=== PATIENT | female | born 1940 | race Caucasian/White ===

== ENCOUNTER 2021-06-03 14:16 | Inpatient (IN) ==
[2021-06-03 17:05] LABS: Basophils # (auto) 0.02 K/uL (0-0.2); Basophils % (auto) 0.2 %; Hemoglobin 14.4 g/dL (12.0-16.0); Immature Granulocytes # (auto) 0.03 K/uL (0.00-0.02); Immature Granulocytes % (auto) 0.3 %; Lymphocytes % (auto) 11.9 %; Mean Corpuscular Hemoglobin 29.1 pg (25-34); Mean Corpuscular Hgb Conc 34.3 g/dL (32-36); Mean Corpuscular Volume 84.8 fL (80-100); Monocytes # (auto) 0.66 K/uL (0.11-0.59); Monocytes % (auto) 5.6 %; Platelet Count 288 K/uL (130-400); RDW Coefficient of Variation 13.3 % (11.5-14.5); Red Blood Count 4.95 M/uL (4.2-5.4); White Blood Count 11.81 K/uL (4.8-10.8)
[2021-06-03 17:20] LABS: INR 1.1 (0.9-1.1); Prothrombin Time 11.5 Seconds (9.0-12.0)
[2021-06-03 17:22] LABS: Albumin Level 3.6 gm/dl (3.4-5.0); BUN Creatinine Ratio 24.8 (10-20); Calcium 9.3 mg/dl (8.5-10.1); Creatinine Clr Calc Pharmacy 28.1 ml/min; Est GFR (African American) 41.7 ml/min; Magnesium 2.4 mg/dl (1.8-2.4); Potassium 2.9 mmol/L (3.5-5.1)
[2021-06-03 17:33] LABS: Bilirubin,Total 0.6 mg/dl (0.2-1); Globulin 3.5 gm/dl (2.5-4.0); Thyroid Stimulating Hormone 2.13 uIu/ml (0.300-4.500); Total Protein 7.1 gm/dl (6.4-8.2); Troponin I 0.032 ng/ml (0-0.045)
[2021-06-03] MEDS ORDERED: SODIUM CHLORIDE 0.9% 1000ML 1,000 ML IV ONE (18:59)
--- NOTE | 2021-06-03 19:03 | Emergency Department Note ---
Impression & Plan Altered mental status, Acute UTI, Acute hypokalemia ED Provider Note NAME: ZOIE PANCHAL AGE: 80 SEX: F : 1940 ARRIVES VIA: Walk-In INFORMANT: Patient ED PROVIDER(S): Yunior Savage DO CHIEF COMPLAINT: AMS HPI: Patient is an 80-year-old female who presents to the ER for confusion. This started the day before when she had a lumpectomy of the right breast. She has been slightly confused and has been waxing and waning. Over the past 24 hours she has been significantly more confused. She denies any headache or change in vision. No chest pain or shortness of breath. No nausea, vomiting, or diarrhea. No dysuria, urgency, or frequency. No other exacerbating remitting factors. ROS: See above HPI for pertinent positives & negatives. A total of 10 systems reviewed and were otherwise negative. � PAST MEDICAL HISTORY:��See Below PAST SURGICAL HISTORY:��See Below� FAMILY HISTORY:��See Below SOCIAL HISTORY:��See Below � HOME MEDICATIONS:��See Below ALLERGIES:��See Below � VITALS:��See Below PHYSICAL EXAMINATION: GENERAL: Sitting up in bed, alert, well appearing, well nourished, no distress, non-toxic EYE EXAM: normal conjunctiva. PERRL and EOM's intact. OROPHARYNX: no exudate, no erythema, lips, buccal mucosa, and tongue normal and mucous membranes are moist NECK: supple, no nuchal rigidity, no adenopathy, non-tender LUNGS: Clear to auscultation. Normal chest wall mechanics HEART: no murmurs, S1 normal and S2 normal ABDOMEN: abdomen soft, non-tender, normo-active bowel sounds, no masses, no rebound or guarding. BACK: Back is symmetrical on inspection and there is no deformity, no midline tenderness, no CVA tenderness. SKIN: no rashes and no bruising UPPER EXTREMITIES: upper extremities are grossly normal. LOWER EXTREMITIES: No pitting edema. NEURO EXAM: Oriented to person place but not month confused as to recent history cranial nerves II-XII intact, normal speech, no weakness of arms, no weakness of legs. No drift. Finger to nose intact. Gross sensation intact. MEDICAL DECISION MAKING: Patient is an 80-year-old female who presents ER with son for confusion. IV was established blood work was obtained. Labs show mild leukocytosis of 11.8 thousand. No anemia. BMP with mild hypokalemia at 2.9. This was repleted orally. LFTs bilirubin was unremarkable. TSH was normal. UA does suggest UTI although was contaminated and difficult to tell with +4 bacteria leuks whites but 20 epithelial cells. Patient was given Rocephin. CT head and chest x-ray were unremarkable. Covid was negative. Patient was discussed with hospitalist admitted for further work-up. Triage Nursing notes reviewed. Limited review of prior medical records performed Vital Signs: reviewed and remarkable for hypertensive and tachycardic Differential diagnosis: Differential diagnoses includes but is not limited to toxic, metabolic, infectious, traumatic, cardiac, neurologic, hematologic, psychiatric and inflammatory etiologies. ER treatment provided: See below Diagnostics interpreted by me: ECG: Sinus tachycardia rate of 98 Left axis No PVCs ST depressions in V3 through V6 as well as the inferior leads with T wave inversion No old to compare to Cardiac Monitoring: An order was placed for continuous cardiac monitoring. The monitor shows a rate of 92 with sinus rhythm. Laboratory studies: As stated above and show below. Imaging studies: CT head was negative Chest x-ray was unremarkable Consultation(s): none Procedures: none Critical Care: None � Past Med/Surg History Social History Smoking Status: Never smoker Preferred Language: Danish Feels Safe at Home: Yes Allergies Allergies Allergy/AdvReac Type Severity Reaction Status Date / Time No Known Allergies Allergy Verified 06/03/21 18:44 Home Meds Home Medications Medication Instructions Recorded Confirmed calcium carbonate 200 mg calcium 200 mg PO DIRECTED PRN 06/03/21 06/03/21 (500 mg) chewable tablet (Tums) metoprolol succinate 25 mg 25 mg PO DAILY 06/03/21 06/03/21 tablet,extended release 24 hr raloxifene 60 mg tablet 60 mg PO DAILY 06/03/21 06/03/21 rosuvastatin 40 mg tablet 40 mg PO DAILY 06/03/21 06/03/21 trazodone 50 mg tablet 50 mg PO HS 06/03/21 06/03/21 Results & Data (ED) Vital Signs Vital Signs - 24 hr 06/03/21 14:24 06/03/21 14:30 06/03/21 18:00 Temperature 36.4 C L Temperature Source Temporal Artery Scan Pulse Rate 111 H 84 Pulse Rate [Left Finger] Pulse Rate from SpO2 Sensor Pulse Rhythm Regular Regular Pulse Rhythm [Left Finger] Pulse Strength Normal Pulse Strength [Left Finger] Respiratory Rate 20 20 Respiratory Effort / Characteristics Non-Labored Spontaneous Respiratory Depth Normal Respiratory Pattern Regular Blood Pressure 158/82 H Blood Pressure [Right Arm] Blood Pressure Mean 107 Blood Pressure Mean [Right Arm] Blood Pressure Position Sitting Blood Pressure Position [Right Arm] Pulse Oximetry 97 97 Oxygen Delivery Method Room Air Room Air Room Air Sepsis Recent Fever Within 48 Hours No Sepsis New/Unexplained Change in Mental Status No Sepsis Action Taken by Nursing No Action Required Pulse Oximetry Post Tiitration 97 06/03/21 18:24 06/03/21 18:30 06/03/21 18:40 Temperature Temperature Source Pulse Rate 81 84 89 Pulse Rate [Left Finger] Pulse Rate from SpO2 Sensor 81 85 89 Pulse Rhythm Pulse Rhythm [Left Finger] Pulse Strength Pulse Strength [Left Finger] Respiratory Rate 18 20 21 Respiratory Effort / Characteristics Respiratory Depth Respiratory Pattern Blood Pressure Blood Pressure [Right Arm] Blood Pressure Mean Blood Pressure Mean [Right Arm] Blood Pressure Position Blood Pressure Position [Right Arm] Pulse Oximetry 96 96 96 Oxygen Delivery Method Sepsis Recent Fever Within 48 Hours Sepsis New/Unexplained Change in Mental Status Sepsis Action Taken by Nursing Pulse Oximetry Post Tiitration 06/03/21 18:50 06/03/21 19:00 06/03/21 19:09 Temperature Temperature Source Pulse Rate 89 90 Pulse Rate [Left Finger] 84 Pulse Rate from SpO2 Sensor 89 91 H Pulse Rhythm Pulse Rhythm [Left Finger] Regular Pulse Strength Pulse Strength [Left Finger] Normal Respiratory Rate 27 H 21 20 Respiratory Effort / Characteristics Non-Labored Respiratory Depth Normal Respiratory Pattern Blood Pressure Blood Pressure [Right Arm] 168/74 H Blood Pressure Mean Blood Pressure Mean [Right Arm] 105 Blood Pressure Position Blood Pressure Position [Right Arm] Lying Pulse Oximetry 96 95 96 Oxygen Delivery Method Room Air Sepsis Recent Fever Within 48 Hours Sepsis New/Unexplained Change in Mental Status Sepsis Action Taken by Nursing Pulse Oximetry Post Tiitration 06/03/21 19:10 06/03/21 19:20 06/03/21 19:30 Temperature Temperature Source Pulse Rate 86 81 89 Pulse Rate [Left Finger] Pulse Rate from SpO2 Sensor 88 84 Pulse Rhythm Pulse Rhythm [Left Finger] Pulse Strength Pulse Strength [Left Finger] Respiratory Rate 21 27 H 21 Respiratory Effort / Characteristics Respiratory Depth Respiratory Pattern Blood Pressure Blood Pressure [Right Arm] Blood Pressure Mean Blood Pressure Mean [Right Arm] Blood Pressure Position Blood Pressure Position [Right Arm] Pulse Oximetry 96 97 Oxygen Delivery Method Sepsis Recent Fever Within 48 Hours Sepsis New/Unexplained Change in Mental Status Sepsis Action Taken by Nursing Pulse Oximetry Post Tiitration 06/03/21 19:40 06/03/21 19:50 06/03/21 20:00 Temperature Temperature Source Pulse Rate 84 87 86 Pulse Rate [Left Finger] Pulse Rate from SpO2 Sensor 84 86 87 Pulse Rhythm Pulse Rhythm [Left Finger] Pulse Strength Pulse Strength [Left Finger] Respiratory Rate 19 18 16 Respiratory Effort / Characteristics Respiratory Depth Respiratory Pattern Blood Pressure Blood Pressure [Right Arm] Blood Pressure Mean Blood Pressure Mean [Right Arm] Blood Pressure Position Blood Pressure Position [Right Arm] Pulse Oximetry 96 97 97 Oxygen Delivery Method Sepsis Recent Fever Within 48 Hours Sepsis New/Unexplained Change in Mental Status Sepsis Action Taken by Nursing Pulse Oximetry Post Tiitration 06/03/21 20:20 06/03/21 20:30 06/03/21 20:40 Temperature Temperature Source Pulse Rate 78 91 H Pulse Rate [Left Finger] Pulse Rate from SpO2 Sensor 82 69 90 Pulse Rhythm Pulse Rhythm [Left Finger] Pulse Strength Pulse Strength [Left Finger] Respiratory Rate 19 21 Respiratory Effort / Characteristics Respiratory Depth Respiratory Pattern Blood Pressure 164/74 H Blood Pressure [Right Arm] Blood Pressure Mean 104 Blood Pressure Mean [Right Arm] Blood Pressure Position Blood Pressure Position [Right Arm] Pulse Oximetry 98 96 98 Oxygen Delivery Method Sepsis Recent Fever Within 48 Hours Sepsis New/Unexplained Change in Mental Status Sepsis Action Taken by Nursing Pulse Oximetry Post Tiitration 06/03/21 20:50 06/03/21 21:00 06/03/21 21:10 Temperature Temperature Source Pulse Rate 80 84 86 Pulse Rate [Left Finger] Pulse Rate from SpO2 Sensor 80 85 87 Pulse Rhythm Pulse Rhythm [Left Finger] Pulse Strength Pulse Strength [Left Finger] Respiratory Rate 17 17 17 Respiratory Effort / Characteristics Respiratory Depth Respiratory Pattern Blood Pressure 166/80 H Blood Pressure [Right Arm] Blood Pressure Mean 108 Blood Pressure Mean [Right Arm] Blood Pressure Position Blood Pressure Position [Right Arm] Pulse Oximetry 97 96 98 Oxygen Delivery Method Sepsis Recent Fever Within 48 Hours Sepsis New/Unexplained Change in Mental Status Sepsis Action Taken by Nursing Pulse Oximetry Post Tiitration 06/03/21 23:00 Temperature Temperature Source Pulse Rate Pulse Rate [Left Finger] 87 Pulse Rate from SpO2 Sensor Pulse Rhythm Pulse Rhythm [Left Finger] Pulse Strength Pulse Strength [Left Finger] Respiratory Rate 20 Respiratory Effort / Characteristics Respiratory Depth Respiratory Pattern Blood Pressure Blood Pressure [Right Arm] 154/77 H Blood Pressure Mean Blood Pressure Mean [Right Arm] 102 Blood Pressure Position Blood Pressure Position [Right Arm] Pulse Oximetry 96 Oxygen Delivery Method Room Air Sepsis Recent Fever Within 48 Hours Sepsis New/Unexplained Change in Mental Status Sepsis Action Taken by Nursing Pulse Oximetry Post Tiitration Laboratory Data Result diagrams: 06/03/21 16:50 06/03/21 16:50 Lab Results 06/03/21 06/03/21 06/03/21 Range/Units 16:50 16:50 16:50 WBC 11.81 H (4.8-10.8) K/uL RBC 4.95 (4.2-5.4) M/uL Hgb 14.4 (12.0-16.0) g/dL Hct 42.0 (37-47) % MCV 84.8 (80-100) fL MCH 29.1 (25-34) pg MCHC 34.3 (32-36) g/dL RDW Std Deviation 41.0 (36.4-46.3) fL RDW Coeff of [place]oz[place] 13.3 (11.5-14.5) % Plt Count 288 (130-400) K/uL MPV 10.0 (7.4-10.4) fL Immature Gran % (Auto) 0.3 % Neut % (Auto) 82.0 % Lymph % (Auto) 11.9 % [place] % (Auto) 5.6 % Eos % (Auto) 0.0 % Baso % (Auto) 0.2 % Neut # (Auto) 9.70 H (1.4-6.5) K/uL Lymph # (Auto) 1.40 (1.2-3.4) K/uL [place]ayer # (Auto) 0.66 H (0.11-0.59) K/uL Eos # (Auto) 0.00 (0-0.5) K/uL Baso # (Auto) 0.02 (0-0.2) K/uL Immature Gran # (Auto) 0.03 H (0.00-0.02) K/uL PT 11.5 (9.0-12.0) Seconds INR 1.1 (0.9-1.1) APTT 26.0 (21.0-31.0) Seconds PTT Ratio 1.0 Sodium 135 L (136-145) mmol/L Potassium 2.9 L (3.5-5.1) mmol/L Chloride 98 (98-107) mmol/L Carbon Dioxide 28 (21-32) mmol/L Anion Gap 9.0 (3-11) BUN 34 H (7-18) mg/dl Creatinine 1.38 H (0.6-1.2) mg/dl Est Cr Clr Drug Dosing 28.1 ml/min Est GFR ( Amer) 41.7 ml/min Est GFR (Non-Af Amer) 36.0 ml/min BUN/Creatinine Ratio 24.8 H (10-20) Glucose 172 H (70-99) mg/dl Calcium 9.3 (8.5-10.1) mg/dl Magnesium 2.4 (1.8-2.4) mg/dl Total Bilirubin 0.6 (0.2-1) mg/dl AST 40 H (15-37) U/L ALT 49 (12-78) Alkaline Phosphatase 69 (45-117) U/L Troponin I 0.032 (0-0.045) ng/ml Total Protein 7.1 (6.4-8.2) gm/dl Albumin 3.6 (3.4-5.0) gm/dl Globulin 3.5 (2.5-4.0) gm/dl Albumin/Globulin Ratio 1.0 (0.9-2) TSH 2.130 (0.300-4.500) uIu/ml Urine Color Urine Appearance (Clear) Urine pH (4.5-7.5) Ur Specific [place] (1.000-1.030) Urine Protein (Negative) Urine Glucose (UA) (Negative) Urine Ketones (Negative) Urine Blood (Negative) Urine Nitrite (Negative) Urine Bilirubin (Negative) Urine Urobilinogen (Negative) Ur Leukocyte Esterase (Negative) Urine WBC (Auto) (0-5) /hpf Urine RBC (Auto) (0-4) /hpf U Hyaline Cast (Auto) (0-5) /lpf U Epithel Cells (Auto) (0-5) /lpf Urine Bacteria (Auto) (Negative) SARS-CoV-2, RNA, NAAT (NEGATIVE) 06/03/21 06/03/21 Range/Units 18:59 19:00 WBC (4.8-10.8) K/uL RBC (4.2-5.4) M/uL Hgb (12.0-16.0) g/dL Hct (37-47) % MCV (80-100) fL MCH (25-34) pg MCHC (32-36) g/dL RDW Std Deviation (36.4-46.3) fL RDW Coeff of [place]oz[place] (11.5-14.5) % Plt Count (130-400) K/uL MPV (7.4-10.4) fL Immature Gran % (Auto) % Neut % (Auto) % Lymph % (Auto) % [place] % (Auto) % Eos % (Auto) % Baso % (Auto) % Neut # (Auto) (1.4-6.5) K/uL Lymph # (Auto) (1.2-3.4) K/uL [place] # (Auto) (0.11-0.59) K/uL Eos # (Auto) (0-0.5) K/uL Baso # (Auto) (0-0.2) K/uL Immature Gran # (Auto) (0.00-0.02) K/uL PT (9.0-12.0) Seconds INR (0.9-1.1) APTT (21.0-31.0) Seconds PTT Ratio Sodium (136-145) mmol/L Potassium (3.5-5.1) mmol/L Chloride (98-107) mmol/L Carbon Dioxide (21-32) mmol/L Anion Gap (3-11) BUN (7-18) mg/dl Creatinine (0.6-1.2) mg/dl Est Cr Clr Drug Dosing ml/min Est GFR ( Amer) ml/min Est GFR (Non-Af Amer) ml/min BUN/Creatinine Ratio (10-20) Glucose (70-99) mg/dl Calcium (8.5-10.1) mg/dl Magnesium (1.8-2.4) mg/dl Total Bilirubin (0.2-1) mg/dl AST (15-37) U/L ALT (12-78) Alkaline Phosphatase (45-117) U/L Troponin I (0-0.045) ng/ml Total Protein (6.4-8.2) gm/dl Albumin (3.4-5.0) gm/dl Globulin (2.5-4.0) gm/dl Albumin/Globulin Ratio (0.9-2) TSH (0.300-4.500) uIu/ml Urine Color Dark Yellow Urine Appearance Cloudy A (Clear) Urine pH 5.0 (4.5-7.5) Ur Specific [place] 1.024 (1.000-1.030) Urine Protein 2+ H (Negative) Urine Glucose (UA) Negative (Negative) Urine Ketones 1+ H (Negative) Urine Blood 2+ H (Negative) Urine Nitrite Negative (Negative) Urine Bilirubin Negative (Negative) Urine Urobilinogen Negative (Negative) Ur Leukocyte Esterase Trace H (Negative) Urine WBC (Auto) >30 H (0-5) /hpf Urine RBC (Auto) 5-10 H (0-4) /hpf U Hyaline Cast (Auto) >30 H (0-5) /lpf U Epithel Cells (Auto) 20-30 H (0-5) /lpf Urine Bacteria (Auto) 4+ H (Negative) SARS-CoV-2, RNA, NAAT NEGATIVE (NEGATIVE) Administered Medications Potassium Chloride 40 meq/ (Sodium Chloride) 1,020 mls @ 60 mls/hr IV .Q17H ONE Stop: 06/04/21 15:59 Last Admin: 06/03/21 23:26 Dose: 60 mls/hr Documented by: [id number] Discontinued Medications Sodium Chloride (Nss 1000ml) 1,000 mls @ 999 mls/hr IV .Q1H1M ONE Stop: 06/03/21 19:59 Last Infusion: 06/03/21 20:27 Dose: 0 mls/hr Documented by: [id number] Admin: 06/03/21 19:17 Dose: 999 mls/hr Documented by: [id number] Ceftriaxone Sodium (Rocephin) 1,000 mg in 50 mls @ 100 mls/hr IV NOW STA Stop: 06/03/21 22:07 Last Infusion: 06/03/21 22:20 Dose: 0 mls/hr Documented by: [id number] Admin: 06/03/21 21:51 Dose: 100 mls/hr Documented by: [id number] Cefepime HCl (Maxipime) 2,000 mg in 20 mls @ 5 mls/min IV NOW STA; Protocol Stop: 06/03/21 22:42 Last Admin: 06/03/21 23:26 Dose: 5 mls/min Documented by: [id number] Potassium Chloride (Potassium Chloride Crtab 20 Meq Tabcr) 40 meq PO NOW STA Stop: 06/03/21 21:39 Last Admin: 06/03/21 21:51 Dose: 40 meq Documented by: [id number] Potassium Chloride (Potassium Chloride Crtab 20 Meq Tabcr) 40 meq PO NOW STA Stop: 06/03/21 22:41 Last Admin: 06/03/21 23:25 Dose: 40 meq Documented by: [id number] Discharge Plan Visit Data Chief Complaint: Altered Mental Status Stated Complaint: CONFUSION, MENTAL HEALTH EVAL ED Provider: Yunior Savage Discharge Problem: Altered mental status, Acute UTI, Acute hypokalemia Forms Stand Alone Forms: [facility] Prescriptions Prescriptions: No Action trazodone 50 mg tablet 50 mg PO HS RF: 0 calcium carbonate [Tums] 200 mg calcium (500 mg) Tablet,Chewable 200 mg PO DIRECTED PRN (Reason: HEARTBURN/INDIGESTION) RF: 0 raloxifene 60 mg tablet 60 mg PO DAILY RF: 0 metoprolol succinate 25 mg tablet extended release 24 hr 25 mg PO DAILY RF: 0 rosuvastatin 40 mg tablet 40 mg PO DAILY RF: 0 Referrals Referrals: Cecile Vega [Primary Care Provider] -
[2021-06-03 20:04] LABS: Appearance Urine Cloudy (Clear); Bacteria Urine Automated 4+ (Negative); Bilirubin Urine Negative (Negative); Blood Urine 2+ (Negative); Color Urine Dark Yellow; Epithelial Cell Urine Auto 20-30 /lpf (0-5); Glucose Urine UA Negative (Negative); Ketones Urine 1+ (Negative); Leukocyte Esterase Urine Trace (Negative); Nitrite Urine Negative (Negative); Protein Urine 2+ (Negative); Specific Gravity Urine 1.024 (1.000-1.030); Urobilinogen Urine Negative (Negative); WBC Urine Automated >30 /hpf (0-5)
[2021-06-03 20:16] LABS: Cast Urine Automated >30 /lpf (0-5)
[2021-06-03] MEDS ORDERED: cefTRIAXone SODIUM 1,000 MG/50 ML BAG IV STA (21:38)
[2021-06-03] MEDS ORDERED: POTASSIUM CHLORIDE CRTAB 20 MEQ TABCR PO STA ×2 (21:38→22:40)
[2021-06-03] MEDS ORDERED: CEFEPIME 2,000 MG/20 ML VIAL IV STA (22:39)
[2021-06-03] MEDS ORDERED: POTASSIUM CHLORIDE 40 MEQ in SODIUM CHLORIDE 0.9% 1000ML 1,000 ML IV ONE (23:00)
--- NOTE | 2021-06-03 23:44 | History & Physical Report ---
Date of Service June 03, 2021 Assessment & Plan (1) Encephalopathy: Plan: Multifactorial : Complicated UTI, possible sepsis ARF secondary to clinical dehydration from poor p.o. intake with note of ketonuria ? Adjustment disorder, recent breast cancer diagnosis Rule out structural intracranial pathology given behavioral changes/speech change hypertension, elevated hyperlipidemia, on statin Rx Hyperglycemia rule out DM Medical telemetry CS, cefepime Monitor creatinine response to IVF Psychiatry consult Re: Behavioral change, possible adjustment disorder Hold trazodone until patient seen by psychiatry MRI brain RE behavioral change Check hemoglobin A1c PT OT eval DVT prophylaxis. Heparin subcu Full code Patient son requesting update from providers. Mr. Marco A Hale, contact numbers [phone]. Text document was generated using [employer] voice recognition software. It may contain grammatical or spelling errors. Kindly contact undersigned for clarification of any documentation item in question. History of Present Illness Chief Complaint: Confusion Primary Care Provider: Cecile Vega History obtained from patient, family, and records. Patient is a fair historian. Medical history significant for hypertension, hyperlipidemia, ductal carcinoma in situ, right breast status post recent surgery, osteoporosis. Patient has not been well since last month. Some stress related to elective right breast surgery at [facility] done before . Appetite not too good. Patient denies headache, chest pain, S OB. Admits to anxiety about breast cancer diagnosis. Not sleeping a lot. Denies depression/suicidality. Family noticed patient to be talking about things not making sense from time to time before procedure. Outpatient Rx for a urinary tract infection. After elective right breast surgery, patient evaluated at [facility] ER about 2 weeks ago for agitation, confusion. Patient with thoughts about being processed by the devil as per son. Patient subsequently discharged from the ER. Symptoms could be from some stress related to breast cancer diagnosis/procedure as per patient PCP as per son during last visit last week. Trazodone prescribed at night to help with sleep. Patient family noted increasing confusion, patient stopping in the middle of her sentences when asked questions. Patient taking down a lot of notes on a paper pad at home which is kind of unusual as per family. Urine also noted to have a strong smell by patient yesterday. No fever, no chills, no abdominal pain. Patient given ceftriaxone at the ER for UTI. 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 Allergies Allergy/AdvReac Type Severity Reaction Status Date / Time No Known Allergies Allergy Verified 06/03/21 18:44 Home Medications Medication Instructions Recorded Confirmed Type calcium carbonate 200 mg calcium 200 mg PO DIRECTED PRN 06/03/21 06/03/21 History (500 mg) chewable tablet (Tums) metoprolol succinate 25 mg 25 mg PO DAILY 06/03/21 06/03/21 History tablet,extended release 24 hr raloxifene 60 mg tablet 60 mg PO DAILY 06/03/21 06/03/21 History rosuvastatin 40 mg tablet 40 mg PO DAILY 06/03/21 06/03/21 History trazodone 50 mg tablet 50 mg PO HS 06/03/21 06/03/21 History Past Med/Surg History Medical History (Updated 06/04/21 @ 15:37 by Tiffany Rivas MD) Acute hypokalemia Acute UTI Altered mental status Social History Smoking Status: Never smoker Hx Alcohol Use: No Hx Substance Use: No Preferred Language: Georgian Communication Ability: Effective Communication Ability Comment: Pt has intermittent confusion Podiatry Doctor Required: No Beliefs That Will Affect Care: None marital status: Current Living Situation: Family Other Information That Helps Us Care for You: No Feels Safe at Home: Yes Safety Concerns: Feels Safe At This Time Assistive Devices: None Review of Systems Review of Systems: As per HPI, all 10 systems reviewed, all other ROS negative Physical Exam Physical Exam: GENERAL: Slightly uncomfortable, slightly anxious, incessant note-taking during encounter, struggles to complete answers to questions, no respiratory distress SKIN: Normal color, warm HEENT: Bespectacled, [place] palpebral conjunctivae, no ptosis, dry buccal mucosa NECK : Supple, no tenderness CHEST : CTA, no tenderness HEART : RRR, no obvious murmurs ABDOMEN: Some distention, nontender EXTREMITIES : No LE swelling/tenderness, no other conspicuous deformities noted NEUROLOGIC : Coherent, no facial asymmetry, slow to respond to some questions/some difficulty finishing sentences, gait and stance not assessed Results & Data Results & Data ([facility]) Vital Signs (Past 12 Hours) Vital Signs Temp Pulse Pulse Resp BP BP Pulse Ox 06/03/21 23:00 87 20 154/77 H 96 06/03/21 21:10 86 17 98 06/03/21 21:00 84 17 166/80 H 96 06/03/21 20:50 80 17 97 06/03/21 20:40 91 H 21 98 06/03/21 20:30 78 19 164/74 H 96 06/03/21 20:20 98 06/03/21 20:00 86 16 97 06/03/21 19:50 87 18 97 06/03/21 19:40 84 19 96 06/03/21 19:30 89 21 06/03/21 19:20 81 27 H 97 06/03/21 19:10 86 21 96 06/03/21 19:09 84 20 168/74 H 96 06/03/21 19:00 90 21 95 06/03/21 18:50 89 27 H 96 06/03/21 18:40 89 21 96 06/03/21 18:30 84 20 96 06/03/21 18:24 81 18 96 06/03/21 14:30 84 20 97 06/03/21 14:24 36.4 C L 111 H 20 158/82 H 97 Laboratory Results Laboratory Results WBC 11.81 K/uL (4.8-10.8) H 06/03/21 16:50 RBC 4.95 M/uL (4.2-5.4) 06/03/21 16:50 Hgb 14.4 g/dL (12.0-16.0) 06/03/21 16:50 Hct 42.0 % (37-47) 06/03/21 16:50 MCV 84.8 fL (80-100) 06/03/21 16:50 MCH 29.1 pg (25-34) 06/03/21 16:50 MCHC 34.3 g/dL (32-36) 06/03/21 16:50 RDW Std Deviation 41.0 fL (36.4-46.3) 06/03/21 16:50 RDW Coeff of [place]oz[place] 13.3 % (11.5-14.5) 06/03/21 16:50 Plt Count 288 K/uL (130-400) 06/03/21 16:50 MPV 10.0 fL (7.4-10.4) 06/03/21 16:50 Immature Gran % (Auto) 0.3 % 06/03/21 16:50 Neut % (Auto) 82.0 % 06/03/21 16:50 Lymph % (Auto) 11.9 % 06/03/21 16:50 Adams % (Auto) 5.6 % 06/03/21 16:50 Eos % (Auto) 0.0 % 06/03/21 16:50 Baso % (Auto) 0.2 % 06/03/21 16:50 Neut # (Auto) 9.70 K/uL (1.4-6.5) H 06/03/21 16:50 Lymph # (Auto) 1.40 K/uL (1.2-3.4) 06/03/21 16:50 Adams # (Auto) 0.66 K/uL (0.11-0.59) H 06/03/21 16:50 Eos # (Auto) 0.00 K/uL (0-0.5) 06/03/21 16:50 Baso # (Auto) 0.02 K/uL (0-0.2) 06/03/21 16:50 Immature Gran # (Auto) 0.03 K/uL (0.00-0.02) H 06/03/21 16:50 PT 11.5 Seconds (9.0-12.0) 06/03/21 16:50 INR 1.1 (0.9-1.1) 06/03/21 16:50 APTT 26.0 Seconds (21.0-31.0) 06/03/21 16:50 PTT Ratio 1.0 06/03/21 16:50 Sodium 135 mmol/L (136-145) L 06/03/21 16:50 Potassium 2.9 mmol/L (3.5-5.1) L 06/03/21 16:50 Chloride 98 mmol/L (98-107) 06/03/21 16:50 Carbon Dioxide 28 mmol/L (21-32) 06/03/21 16:50 Anion Gap 9.0 (3-11) 06/03/21 16:50 BUN 34 mg/dl (7-18) H 06/03/21 16:50 Creatinine 1.38 mg/dl (0.6-1.2) H 06/03/21 16:50 Est Cr Clr Drug Dosing 28.1 ml/min 06/03/21 16:50 Est GFR ( Amer) 41.7 ml/min 06/03/21 16:50 Est GFR (Non-Af Amer) 36.0 ml/min 06/03/21 16:50 BUN/Creatinine Ratio 24.8 (10-20) H 06/03/21 16:50 Glucose 172 mg/dl (70-99) H 06/03/21 16:50 Calcium 9.3 mg/dl (8.5-10.1) 06/03/21 16:50 Magnesium 2.4 mg/dl (1.8-2.4) 06/03/21 16:50 Total Bilirubin 0.6 mg/dl (0.2-1) 06/03/21 16:50 AST 40 U/L (15-37) H 06/03/21 16:50 ALT 49 (12-78) 06/03/21 16:50 Alkaline Phosphatase 69 U/L (45-117) 06/03/21 16:50 Troponin I 0.032 ng/ml (0-0.045) 06/03/21 16:50 Total Protein 7.1 gm/dl (6.4-8.2) 06/03/21 16:50 Albumin 3.6 gm/dl (3.4-5.0) 06/03/21 16:50 Globulin 3.5 gm/dl (2.5-4.0) 06/03/21 16:50 Albumin/Globulin Ratio 1.0 (0.9-2) 06/03/21 16:50 TSH 2.130 uIu/ml (0.300-4.500) 06/03/21 16:50 Urine Color Dark Yellow 06/03/21 19:00 Urine Appearance Cloudy (Clear) A 06/03/21 19:00 Urine pH 5.0 (4.5-7.5) 06/03/21 19:00 Ur Specific [place] 1.024 (1.000-1.030) 06/03/21 19:00 Urine Protein 2+ (Negative) H 06/03/21 19:00 Urine Glucose (UA) Negative (Negative) 06/03/21 19:00 Urine Ketones 1+ (Negative) H 06/03/21 19:00 Urine Blood 2+ (Negative) H 06/03/21 19:00 Urine Nitrite Negative (Negative) 06/03/21 19:00 Urine Bilirubin Negative (Negative) 06/03/21 19:00 Urine Urobilinogen Negative (Negative) 06/03/21 19:00 Ur Leukocyte Esterase Trace (Negative) H 06/03/21 19:00 Urine WBC (Auto) >30 /hpf (0-5) H 06/03/21 19:00 Urine RBC (Auto) 5-10 /hpf (0-4) H 06/03/21 19:00 U Hyaline Cast (Auto) >30 /lpf (0-5) H 06/03/21 19:00 U Epithel Cells (Auto) 20-30 /lpf (0-5) H 06/03/21 19:00 Urine Bacteria (Auto) 4+ (Negative) H 06/03/21 19:00 SARS-CoV-2, RNA, NAAT NEGATIVE (NEGATIVE) 06/03/21 18:[address] head initial read: No acute intracranial finding Chest x-ray as per interpretation: No congestion, no infiltrate EKG as per my interpretation : Rate 100, NSR, LAD, LAFB, T wave abnormalities over inferior leads and anterolateral leads
[2021-06-04] MEDS ORDERED: ACETAMINOPHEN 325 MG TAB PO PRN (00:41)
[2021-06-04] MEDS ORDERED: PROMETHAZINE HCL 6.25 MG in SODIUM CHLORIDE 0.9% 50 ML IV PRN (00:41)
[2021-06-04] MEDS ORDERED: MELATONIN 3 MG TAB PO PRN (02:22)
[2021-06-04] MEDS ORDERED: amLODIPine BESYLATE 5 MG TAB PO ONE (02:23)
[2021-06-04] MEDS ORDERED: GADOBUTROL 65ML VIAL IV ONE (02:44)
[2021-06-04 05:16] LABS: Basophils # (auto) 0.01 K/uL (0-0.2); Basophils % (auto) 0.1 %; Eosinophils # (auto) 0.03 K/uL (0-0.5); Eosinophils % (auto) 0.4 %; Hematocrit (blood only) 40.3 % (37-47); Hemoglobin 13.8 g/dL (12.0-16.0); Immature Granulocytes # (auto) 0.01 K/uL (0.00-0.02); Immature Granulocytes % (auto) 0.1 %; Lymphocytes # (auto) 0.95 K/uL (1.2-3.4); Lymphocytes % (auto) 11.4 %; Mean Corpuscular Hgb Conc 34.2 g/dL (32-36); Mean Corpuscular Volume 84.7 fL (80-100); Mean Platelet Volume 9.5 fL (7.4-10.4); Monocytes # (auto) 0.74 K/uL (0.11-0.59); Monocytes % (auto) 8.9 %; Neutrophils # (auto) 6.56 K/uL (1.4-6.5); Neutrophils % (auto) 79.1 %; Platelet Count 231 K/uL (130-400); RDW Coefficient of Variation 13.3 % (11.5-14.5); RDW Standard Deviation 41.2 fL (36.4-46.3); Red Blood Count 4.76 M/uL (4.2-5.4)
[2021-06-04 05:36] LABS: BUN Creatinine Ratio 25.2 (10-20); Calcium 8.5 mg/dl (8.5-10.1); Est GFR (African American) 71.9 ml/min; Est GFR (Non-African American) 62.1 ml/min; Potassium 3.4 mmol/L (3.5-5.1)
[2021-06-04] MEDS ORDERED: POTASSIUM CHLORIDE CRTAB 20 MEQ TABCR PO STA ×2 (05:40→10:40)
--- NOTE | 2021-06-04 06:50 | CT Scan Report ---
CT head/brain wo con CLINICAL HISTORY: ams COMPARISON STUDY: No previous studies for comparison. CT DOSE: 614.27 mGy.cm TECHNIQUE: Standard CT of the Brain was performed without IV contrast. A dose lowering technique was utilized adhering to the principles of ALARA. FINDINGS: Extraaxial space: There is no evidence for subdural hematoma. There are no extra-axial fluid collecti ons. Ventricles and cisterns: The ventricles are normal in size and configuration. There is no evidence f or midline shift or mass effect. Parenchyma: There is no subarachnoid or intraparenchymal hemorrhage. There is no evidence for an acu te infarct or cerebral edema. There is mild cerebral cortical atrophy and decreased attenuation in th e periventricular white matter representing remote small vessel disease. There are no gross mass lesi ons. Osseous structures: There is no evidence for an acute fracture. The visualized paranasal sinuses are clear. The mastoid air cells are clear bilaterally. Soft tissues: There is no evidence for focal soft tissue swelling. IMPRESSION: No acute intracerebral pathology. Mild cerebral cortical atrophy and remote small vessel disease. ACT 112: Negative or not required by law. Electronically signed by: Fredy Nesbitt M.D. 06/04/2021 6:49 AM
[2021-06-04 07:49] LABS: Estimated Average Glucose 131 mg/dl; Hemoglobin A1C 6.2 % (4.5-5.6)
[2021-06-04] MEDS ORDERED: CEFEPIME 2,000 MG in SYRINGE 0 ML IV SCH (08:00)
--- NOTE | 2021-06-04 08:35 | Magnetic Resonance Report ---
MR brain wo/w con CLINICAL HISTORY: behavioral change. Recent lumpectomy. Altered mental status and anxiety for possi ble metastatic disease. COMPARISON STUDY: CT brain from 06/03/2021 TECHNIQUE: Multiplanar multisequence images of the brain were performed before and after Gadavist, 6 mL of IV contrast. Diffusion weighted imaging and ADC mapping was also performed. FINDINGS: Extra-axial space: There is no evidence for a subdural hematoma, There are no extra-axial fluid shamir ections. Ventricles and cisterns: The ventricles are normal in size and configuration. There is no evidence f or midline shift or mass effect. Parenchyma: On noncontrast images, there is no evidence for an acute hemorrhage or infarct. No acute diffusion abnormalities are noted on diffusion weighted imaging or ADC mapping. There is normal adams -white differentiation. There is mild cerebral cortical atrophy present. There is bright signal seen on FLAIR weighted sequences within the centrum semiovale and periventricular white matter characteris tic of remote small vessel disease. The sulci and gyri appear normal without effacement. The midline structures are unremarkable. The posterior fossa structures appear normal. On postcontrast images, there is no evidence for enhancing mass lesion. Osseous structures: The paranasal sinuses are well aerated. The mastoid air cells are well aerated. Soft tissues: No focal soft tissue abnormalities are identified. IMPRESSION: No acute intracranial abnormalities. Mild cerebral cortical atrophy and remote small ves chanell disease are present. ACT 112: Negative or not required by law. Electronically signed by: Fredy eNsbitt M.D. 06/04/2021 8:33 AM
--- NOTE | 2021-06-04 08:47 | XRay Report ---
XR chest 1V portable CLINICAL HISTORY: ams TECHNIQUE: Single frontal radiograph of the chest was obtained. Comparison: None available at the time of this dictation. FINDINGS: No lines and tubes are seen. The cardiomediastinal silhouette is normal. The lungs are clear. No evid ence of pleural effusion or pneumothorax. IMPRESSION: No acute chest disease. ACT 112: Negative or not required by law. Electronically signed by: Armando Devi M.D. 06/04/2021 8:46 AM
[2021-06-04] MEDS ORDERED: ENOXAPARIN INJ 30 MG/0.3 ML SYR SQ SCH (09:00)
[2021-06-04] MEDS: METOPROLOL SUCC 25MG EXT REL TAB PO SCH (09:10)
[2021-06-04] MEDS: ROSUVASTATIN CALCIUM 20 MG TAB PO SCH (09:10)
--- NOTE | 2021-06-04 15:24 | Psychiatric Consultation ---
Date of Consultation June 04, 2021 Impression / Recommendations Impression 80 yo female with AMS s/p lumpectomy, denies recent depression but certainly sleep disturbance can be stress reaction. Her visual abbott and confusion seem most consistent with delirium. MRI is essentially age related changes. No significant dementia at baseline. Doubt pseudodementia given acute onset and relative lack of other vegetative symptoms but could check b12 and folate. (1) Altered mental status: Altered mental status type: unspecified Qualified Code(s): R41.82 - Altered mental status, unspecified agree with avoiding benzos given fall risk and holding trazodone as can have anticholinergic properties. would want to ensure her melatonin prep is a combo agent with any benadryl (son thinks no). she did indicate to the liaison nurse that she'd consider meeting with a counselor about phase of life changes but currently will monitor Risk Factors Assessment Do You Have Access To A Gun?: No Psych History Identifying Data 80 yo female from [place] seen individually and with her son while boarding in the ED awaiting placement on telemetry. Consult is by [facility]ist service for confusion and possible adjustment reaction. Chief Complaint "I just am not sure what to say lately and yeah I did think I saw a little devil". History of Present Illness Patient was recently diagnosed with breast CA and recently underwent a lumpectomy around . She denies being overwhelmed by her diagnosis, just states "not sure if I need to do all this at age 80". PHQ-9 score is 1 for difficulty sleeping for several days over the past 2 weeks. She started taking melatonin the night before her surgery and "I thought maybe I saw a little devil when they were treating me" and later was given 10 tabs of 0.5 mg lorazepam on 05/25 from the ED for sleep. This was changed to trazodone 50 mg hs when seen by primary care for age/fall risk per son. The patient normally manages her medications but he has been overseeing this the past week due to her change in mental status/confusion. He denies that she has ever had an episode like this and confirms no psych hx. Apparently she was calling people late at night prior to the procedure and this increase in frequency after. All of her other medications seem longstanding. There is a percocet rx listed on her external med rec from 05/23, not clear if took. She denies taking any other OTC meds or supplements. Past Psychiatric History Previous Psych History: none Previous Psych Admissions: none Do You Have Access To A Gun?: No History of Previous Suicide Attempt: No Past Medication Trials: Ativan recent prn Allergies Allergy/AdvReac Type Severity Reaction Status Date / Time No Known Allergies Allergy Verified 06/03/21 18:44 Home Medications Medication Instructions Recorded Confirmed Type calcium carbonate 200 mg calcium 200 mg PO DIRECTED PRN 06/03/21 06/03/21 History (500 mg) chewable tablet (Tums) metoprolol succinate 25 mg 25 mg PO DAILY 06/03/21 06/03/21 History tablet,extended release 24 hr raloxifene 60 mg tablet 60 mg PO DAILY 06/03/21 06/03/21 History rosuvastatin 40 mg tablet 40 mg PO DAILY 06/03/21 06/03/21 History trazodone 50 mg tablet 50 mg PO HS 06/03/21 06/03/21 History Family History essentially denied, "maybe" depression Substance Abuse History denied Personal History Living Arrangements: Home Childhood: [place]; 5 sibs Highest Grade Completed: High School Graduate Employment Status: Retired ([employer]) Marital Status: ( in [place] for 2 years.) Number Of Children: 2 sons, grandsons in [facility] History of Legal Problems: no Psychological Trauma History Comment: denied Patient History Medical History (Updated 06/04/21 @ 15:37 by Tiffany Rivas MD) Acute hypokalemia Acute UTI Altered mental status Social History Smoking Status: Never smoker Preferred Language: [place] African Feels Safe at Home: Yes Physical Exam Psychiatric: Orientation: alert, oriented to person and oriented to place Apperance: appropriately dressed and appropriately groomed Eye Contact: good eye contact Motor Behavior: no abnormal motor movements Speech: normal rate/rhythm/volume of speech (but word finding difficulties) Affect: + constricted affect Mood: no depressed mood Thought Process: + circumstantial thought process Thought Content: reality based without delusions Suicidal Thoughts: denies suicidal thoughts Homicidal Thoughts: denies homicidal thoughts Hallucinations: no auditory hallucinations and no visual hallucinations Cognition: language grossly intact; + attention not intact Estimated Intelligence: consistent with education level Insight: + limited insight Judgement: + limited judgement Vital Signs (Past 24 Hours): Last Vital Signs Temp 36.7 C 06/04/21 11:25 Pulse 88 06/04/21 11:25 Resp 17 06/04/21 11:25 BP 115/62 06/04/21 11:25 Pulse Ox 97 06/04/21 11:25 Review of Systems All systems reviewed & are unremarkable except as noted in HPI & below Results & Data (PSY) Laboratory Results 06/04/21 06/04/21 06/04/21 Range/Units 05:09 05:09 05:09 WBC 8.30 (4.8-10.8) K/uL RBC 4.76 (4.2-5.4) M/uL Hgb 13.8 (12.0-16.0) g/dL Hct 40.3 (37-47) % MCV 84.7 (80-100) fL MCH 29.0 (25-34) pg MCHC 34.2 (32-36) g/dL RDW Std Deviation 41.2 (36.4-46.3) fL RDW Coeff of Fozia 13.3 (11.5-14.5) % Plt Count 231 (130-400) K/uL MPV 9.5 (7.4-10.4) fL Immature Gran % (Auto) 0.1 % Neut % (Auto) 79.1 % Lymph % (Auto) 11.4 % Latimer % (Auto) 8.9 % Eos % (Auto) 0.4 % Baso % (Auto) 0.1 % Neut # (Auto) 6.56 H (1.4-6.5) K/uL Lymph # (Auto) 0.95 L (1.2-3.4) K/uL Latimer # (Auto) 0.74 H (0.11-0.59) K/uL Eos # (Auto) 0.03 (0-0.5) K/uL Baso # (Auto) 0.01 (0-0.2) K/uL Immature Gran # (Auto) 0.01 (0.00-0.02) K/uL PT (9.0-12.0) Seconds INR (0.9-1.1) APTT (21.0-31.0) Seconds PTT Ratio Sodium 138 (136-145) mmol/L Potassium 3.4 L D (3.5-5.1) mmol/L Chloride 103 (98-107) mmol/L Carbon Dioxide 30 (21-32) mmol/L Anion Gap 5.0 (3-11) BUN 22 H (7-18) mg/dl Creatinine 0.88 D (0.6-1.2) mg/dl Est Cr Clr Drug Dosing 44.0 ml/min Est GFR ( Amer) 71.9 ml/min Est GFR (Non-Af Amer) 62.1 ml/min BUN/Creatinine Ratio 25.2 H (10-20) Glucose 121 H (70-99) mg/dl Estimat Average Glucose mg/dl Hemoglobin A1c (4.5-5.6) % Calcium 8.5 (8.5-10.1) mg/dl Magnesium (1.8-2.4) mg/dl Total Bilirubin (0.2-1) mg/dl AST (15-37) U/L ALT (12-78) Alkaline Phosphatase (45-117) U/L Ammonia 12.0 (11-32) umol/L Troponin I (0-0.045) ng/ml Total Protein (6.4-8.2) gm/dl Albumin (3.4-5.0) gm/dl Globulin (2.5-4.0) gm/dl Albumin/Globulin Ratio (0.9-2) TSH (0.300-4.500) uIu/ml Urine Color Urine Appearance (Clear) Urine pH (4.5-7.5) Ur Specific [place] (1.000-1.030) Urine Protein (Negative) Urine Glucose (UA) (Negative) Urine Ketones (Negative) Urine Blood (Negative) Urine Nitrite (Negative) Urine Bilirubin (Negative) Urine Urobilinogen (Negative) Ur Leukocyte Esterase (Negative) Urine WBC (Auto) (0-5) /hpf Urine RBC (Auto) (0-4) /hpf U Hyaline Cast (Auto) (0-5) /lpf U Epithel Cells (Auto) (0-5) /lpf Urine Bacteria (Auto) (Negative) SARS-CoV-2, RNA, NAAT (NEGATIVE) 06/03/21 06/03/21 06/03/21 Range/Units 19:00 18:59 16:50 WBC (4.8-10.8) K/uL RBC (4.2-5.4) M/uL Hgb (12.0-16.0) g/dL Hct (37-47) % MCV (80-100) fL MCH (25-34) pg MCHC (32-36) g/dL RDW Std Deviation (36.4-46.3) fL RDW Coeff of Fozia (11.5-14.5) % Plt Count (130-400) K/uL MPV (7.4-10.4) fL Immature Gran % (Auto) % Neut % (Auto) % Lymph % (Auto) % Latimer % (Auto) % Eos % (Auto) % Baso % (Auto) % Neut # (Auto) (1.4-6.5) K/uL Lymph # (Auto) (1.2-3.4) K/uL Lat[place] # (Auto) (0.11-0.59) K/uL Eos # (Auto) (0-0.5) K/uL Baso # (Auto) (0-0.2) K/uL Immature Gran # (Auto) (0.00-0.02) K/uL PT (9.0-12.0) Seconds INR (0.9-1.1) APTT (21.0-31.0) Seconds PTT Ratio Sodium (136-145) mmol/L Potassium (3.5-5.1) mmol/L Chloride (98-107) mmol/L Carbon Dioxide (21-32) mmol/L Anion Gap (3-11) BUN (7-18) mg/dl Creatinine (0.6-1.2) mg/dl Est Cr Clr Drug Dosing ml/min Est GFR ( Amer) ml/min Est GFR (Non-Af Amer) ml/min BUN/Creatinine Ratio (10-20) Glucose (70-99) mg/dl Estimat Average Glucose 131 mg/dl Hemoglobin A1c 6.2 H (4.5-5.6) % Calcium (8.5-10.1) mg/dl Magnesium (1.8-2.4) mg/dl Total Bilirubin (0.2-1) mg/dl AST (15-37) U/L ALT (12-78) Alkaline Phosphatase (45-117) U/L Ammonia (11-32) umol/L Troponin I (0-0.045) ng/ml Total Protein (6.4-8.2) gm/dl Albumin (3.4-5.0) gm/dl Globulin (2.5-4.0) gm/dl Albumin/Globulin Ratio (0.9-2) TSH (0.300-4.500) uIu/ml Urine Color Dark Yellow Urine Appearance Cloudy A (Clear) Urine pH 5.0 (4.5-7.5) Ur Specific [place] 1.024 (1.000-1.030) Urine Protein 2+ H (Negative) Urine Glucose (UA) Negative (Negative) Urine Ketones 1+ H (Negative) Urine Blood 2+ H (Negative) Urine Nitrite Negative (Negative) Urine Bilirubin Negative (Negative) Urine Urobilinogen Negative (Negative) Ur Leukocyte Esterase Trace H (Negative) Urine WBC (Auto) >30 H (0-5) /hpf Urine RBC (Auto) 5-10 H (0-4) /hpf U Hyaline Cast (Auto) >30 H (0-5) /lpf U Epithel Cells (Auto) 20-30 H (0-5) /lpf Urine Bacteria (Auto) 4+ H (Negative) SARS-CoV-2, RNA, NAAT NEGATIVE (NEGATIVE) 06/03/21 06/03/21 06/03/21 Range/Units 16:50 16:50 16:50 WBC 11.81 H (4.8-10.8) K/uL RBC 4.95 (4.2-5.4) M/uL Hgb 14.4 (12.0-16.0) g/dL Hct 42.0 (37-47) % MCV 84.8 (80-100) fL MCH 29.1 (25-34) pg MCHC 34.3 (32-36) g/dL RDW Std Deviation 41.0 (36.4-46.3) fL RDW Coeff of Fozia 13.3 (11.5-14.5) % Plt Count 288 (130-400) K/uL MPV 10.0 (7.4-10.4) fL Immature Gran % (Auto) 0.3 % Neut % (Auto) 82.0 % Lymph % (Auto) 11.9 % Latimer % (Auto) 5.6 % Eos % (Auto) 0.0 % Baso % (Auto) 0.2 % Neut # (Auto) 9.70 H (1.4-6.5) K/uL Lymph # (Auto) 1.40 (1.2-3.4) K/uL Lat[place] # (Auto) 0.66 H (0.11-0.59) K/uL Eos # (Auto) 0.00 (0-0.5) K/uL Baso # (Auto) 0.02 (0-0.2) K/uL Immature Gran # (Auto) 0.03 H (0.00-0.02) K/uL PT 11.5 (9.0-12.0) Seconds INR 1.1 (0.9-1.1) APTT 26.0 (21.0-31.0) Seconds PTT Ratio 1.0 Sodium 135 L (136-145) mmol/L Potassium 2.9 L (3.5-5.1) mmol/L Chloride 98 (98-107) mmol/L Carbon Dioxide 28 (21-32) mmol/L Anion Gap 9.0 (3-11) BUN 34 H (7-18) mg/dl Creatinine 1.38 H (0.6-1.2) mg/dl Est Cr Clr Drug Dosing 28.1 ml/min Est GFR ( Amer) 41.7 ml/min Est GFR (Non-Af Amer) 36.0 ml/min BUN/Creatinine Ratio 24.8 H (10-20) Glucose 172 H (70-99) mg/dl Estimat Average Glucose mg/dl Hemoglobin A1c (4.5-5.6) % Calcium 9.3 (8.5-10.1) mg/dl Magnesium 2.4 (1.8-2.4) mg/dl Total Bilirubin 0.6 (0.2-1) mg/dl AST 40 H (15-37) U/L ALT 49 (12-78) Alkaline Phosphatase 69 (45-117) U/L Ammonia (11-32) umol/L Troponin I 0.032 (0-0.045) ng/ml Total Protein 7.1 (6.4-8.2) gm/dl Albumin 3.6 (3.4-5.0) gm/dl Globulin 3.5 (2.5-4.0) gm/dl Albumin/Globulin Ratio 1.0 (0.9-2) TSH 2.130 (0.300-4.500) uIu/ml Urine Color Urine Appearance (Clear) Urine pH (4.5-7.5) Ur Specific [place] (1.000-1.030) Urine Protein (Negative) Urine Glucose (UA) (Negative) Urine Ketones (Negative) Urine Blood (Negative) Urine Nitrite (Negative) Urine Bilirubin (Negative) Urine Urobilinogen (Negative) Ur Leukocyte Esterase (Negative) Urine WBC (Auto) (0-5) /hpf Urine RBC (Auto) (0-4) /hpf U Hyaline Cast (Auto) (0-5) /lpf U Epithel Cells (Auto) (0-5) /lpf Urine Bacteria (Auto) (Negative) SARS-CoV-2, RNA, NAAT (NEGATIVE) Medications Administered Metoprolol Succinate (Metoprolol Succ 25mg Ext Rel Tab) 25 mg PO DAILY [facility] Stop: 07/04/21 08:59 Last Admin: 06/04/21 09:10 Dose: 25 mg Documented by: [id number] Rosuvastatin Calcium (Rosuvastatin Calcium 20 Mg Tab) 40 mg PO DAILY [facility] Stop: 07/04/21 08:59 Last Admin: 06/04/21 09:10 Dose: 40 mg Documented by: [id number] Coding Level of Care Code 26224 [facility] Intl Hosp Care Lvl 2 Diagnoses Altered mental status R41.82 Altered mental status type: unspecified
--- NOTE | 2021-06-04 15:51 | Electrocardiogram Report ---
Test Reason : Blood Pressure : / mmHG Vent. Rate : 098 BPM Atrial Rate : 098 BPM P-R Int : 170 ms QRS Dur : 086 ms QT Int : 348 ms P-R-T Axes : 074 -18 011 degrees QTc Int : 444 ms Poor data quality, interpretation may be adversely affected Normal sinus rhythm Possible Left atrial enlargement Septal infarct , age undetermined T wave abnormality, consider lateral ischemia Abnormal ECG No previous ECGs available Confirmed by Alex Gore ([id number]) on 06/04/2021 3:50:56 PM Referred By: REFERRED SELF Confirmed By:Alex Gore
--- NOTE | 2021-06-04 16:34 | Hospitalist Progress Note ---
Date of Service June 04, 2021 Assessment & Plan (1) Acute metabolic encephalopathy: Plan: 2/2 UTI, not septic. Continues on cefepime pending cultures and clinical improvement. Ongoing symptoms with failed outpatient therapy over the last 4 weeks. (2) Acute UTI: Plan: Cont iwth cefepime pending culture results and clinical improvement. (3) ROBERT (acute kidney injury): Plan: resolved with creat from 1.38 to 0.88 baseline. (4) Acute hypokalemia: Plan: replaced with supplementation. (5) DVT prophylaxis: Plan: Lovenox Full Dispo-cont hospitalization pending improvement in mental state. Leidy Mohamud DO [facility] Hosp[facility]ist Admission and Anticipated Discharge Date Admission Date: June 03, 2021 Subjective 80 yo F with encephalopathy thought secondray to UTI Still confused intermittently although she can appropriately answer orientation questions. denies pain, fevers, abdominal pain +confused, most of story corroborated with savita who is at bedside. Review of Systems Review of Systems: ROS couldn't be obtained 2/2 confusion. Physical Exam Physical Exam: CONSTITUTIONAL: WNWD, vitals as above, generally well- appearing, NAD EYES: normal conjunctivae, no scleral icterus ENT: external ear and nose normal, MMM NECK: trachea midline RESPIRATORY: clear to auscultation bilaterally, no crackles, rales or wheezes, normal respiratory effort CARDIOVASCULAR: regular rate and rhythm, S1 and 2 heard without murmurs, gallops or rubs, no JVD, no peripheral edema CHEST: inspection of chest was normal GASTROINTESTINAL: soft, nontender,ND, no guarding MUSCULOSKELETAL: strength 5/5 throughout, head is normocephalic and atraumatic, neck supple, normal palpation of chest wall without tenderness SKIN: warm and dry NEUROLOGIC: CN 2-12 grossly intact, no sensory deficit, normal cognition, normal speech, no tremor PSYCHIATRIC: alert cooperative and oriented to person, place and time. Difficulty answering historical sequence questions. Results & Data Results & Data ([facility]) Vital Signs (Past 12 Hours) Vital Signs Temp Pulse Pulse Resp BP Pulse Ox 06/04/21 15:49 37.1 C 93 H 20 162/71 H 96 06/04/21 15:47 93 H 06/04/21 15:19 37.1 C 95 H 20 162/71 H 96 06/04/21 11:25 36.7 C 88 17 115/62 97 06/04/21 09:13 37 C 115 H 21 186/80 H 96 Laboratory Results Short CBC 06/03/21 06/04/21 Range/Units 16:50 05:09 WBC 11.81 H 8.30 (4.8-10.8) K/uL Hgb 14.4 13.8 (12.0-16.0) g/dL Hct 42.0 40.3 (37-47) % Plt Count 288 231 (130-400) K/uL BMP 06/03/21 06/04/21 16:50 05:09 Sodium 135 L 138 Potassium 2.9 L 3.4 L D Chloride 98 103 Carbon Dioxide 28 30 BUN 34 H 22 H Creatinine 1.38 H 0.88 D Glucose 172 H 121 H Calcium 9.3 8.5 Cardiac Enzymes 06/03/21 Range/Units 16:50 Troponin I 0.032 (0-0.045) ng/ml Liver Function 06/03/21 Range/Units 16:50 Total Bilirubin 0.6 (0.2-1) mg/dl AST 40 H (15-37) U/L ALT 49 (12-78) Alkaline Phosphatase 69 (45-117) U/L Albumin 3.6 (3.4-5.0) gm/dl Urine 06/03/21 Range/Units 19:00 Urine Color Dark Yellow Urine Appearance Cloudy A (Clear) Urine pH 5.0 (4.5-7.5) Ur Specific [place] 1.024 (1.000-1.030) Urine Protein 2+ H (Negative) Urine Glucose (UA) Negative (Negative) Diagnostic Findings Chest X-Ray 06/03/21 19:52 XR chest 1V portable CLINICAL HISTORY: ams TECHNIQUE: Single frontal radiograph of the chest was obtained. Comparison: None available at the time of this dictation. FINDINGS: No lines and tubes are seen. The cardiomediastinal silhouette is normal. The lungs are clear. No evidence of pleural effusion or pneumothorax. IMPRESSION: No acute chest disease. ACT 112: Negative or not required by law. Electronically signed by: Armando Devi M.D. 06/04/2021 8:[address] 06/03/21 19:52 CT head/brain wo con CLINICAL HISTORY: ams COMPARISON STUDY: No previous studies for comparison. CT DOSE: 614.27 mGy.cm TECHNIQUE: Standard CT of the Brain was performed without IV contrast. A dose lowering technique was utilized adhering to the principles of ALARA. FINDINGS: Extraaxial space: There is no evidence for subdural hematoma. There are no extra-axial fluid collections. Ventricles and cisterns: The ventricles are normal in size and configuration. There is no evidence for midline shift or mass effect. Parenchyma: There is no subarachnoid or intraparenchymal hemorrhage. There is no evidence for an acute infarct or cerebral edema. There is mild cerebral cortical atrophy and decreased attenuation in the periventricular white matter representing remote small vessel disease. There are no gross mass lesions. Osseous structures: There is no evidence for an acute fracture. The visualized paranasal sinuses are clear. The mastoid air cells are clear bilaterally. Soft tissues: There is no evidence for focal soft tissue swelling. IMPRESSION: No acute intracerebral pathology. Mild cerebral cortical atrophy and remote small vessel disease. ACT 112: Negative or not required by law. Electronically signed by: Fredy Nesbitt M.D. 06/04/2021 6:49 AM Brain MRI 06/04/21 01:11 MR brain wo/w con CLINICAL HISTORY: behavioral change. Recent lumpectomy. Altered mental status and anxiety for possible metastatic disease. COMPARISON STUDY: CT brain from 06/03/2021 TECHNIQUE: Multiplanar multisequence images of the brain were performed before and after Gadavist, 6 mL of IV contrast. Diffusion weighted imaging and ADC mapping was also performed. FINDINGS: Extra-axial space: There is no evidence for a subdural hematoma, There are no extra-axial fluid collections. Ventricles and cisterns: The ventricles are normal in size and configuration. There is no evidence for midline shift or mass effect. Parenchyma: On noncontrast images, there is no evidence for an acute hemorrhage or infarct. No acute diffusion abnormalities are noted on diffusion weighted imaging or ADC mapping. There is normal adams-white differentiation. There is mild cerebral cortical atrophy present. There is bright signal seen on FLAIR weighted sequences within the centrum semiovale and periventricular white matter characteristic of remote small vessel disease. The sulci and gyri appear normal without effacement. The midline structures are unremarkable. The posterior fossa structures appear normal. On postcontrast images, there is no evidence for enhancing mass lesion. Osseous structures: The paranasal sinuses are well aerated. The mastoid air cells are well aerated. Soft tissues: No focal soft tissue abnormalities are identified. IMPRESSION: No acute intracranial abnormalities. Mild cerebral cortical atrophy and remote small vessel disease are present. ACT 112: Negative or not required by law. Electronically signed by: Fredy Nesbitt M.D. 06/04/2021 8:33 AM Medications Administered Current Inpatient Medications Acetaminophen (Acetaminophen 325 Mg Tab) 650 mg PO Q4H PRN PRN Reason: Pain or Fever Stop: 07/04/21 00:40 Enoxaparin Sodium (Enoxaparin Inj 40 Mg/0.4 Ml Syr) 40 mg SQ QAM TRISTEN; Protocol Stop: 07/05/21 08:59 Promethazine HCl 6.25 mg/ (Sodium Chloride) 50.25 mls @ 201 mls/hr IV Q6H PRN PRN Reason: Nausea And Vomiting Stop: 07/04/21 00:40 Cefepime HCl 1,000 mg/ Syringe 11.3 mls @ 5.5 mls/min IV Q12H TRISTEN; Protocol Stop: 06/14/21 15:59 Melatonin (Melatonin 3 Mg Tab) 3 mg PO HS PRN PRN Reason: Sleep Stop: 07/04/21 02:21 Metoprolol Succinate (Metoprolol Succ 25mg Ext Rel Tab) 25 mg PO DAILY [facility] Stop: 07/04/21 08:59 Last Admin: 06/04/21 09:10 Dose: 25 mg Documented by: Rosuvastatin Calcium (Rosuvastatin Calcium 20 Mg Tab) 40 mg PO DAILY [facility] Stop: 07/04/21 08:59 Last Admin: 06/04/21 09:10 Dose: 40 mg Documented by:
[2021-06-04] MEDS: CEFEPIME 1,000 MG in SYRINGE 0 ML IV SCH (17:47)
[2021-06-04] MEDS ORDERED: OLANZapine 10 MG/2.1 ML SDV IM PRN (20:05)
[2021-06-04] MEDS ORDERED: CEFEPIME 1,000 MG in SYRINGE 0 ML IV SCH (21:00)
[2021-06-05] MEDS ORDERED: HALOPERIDOL LACTATE 5 MG/ML 1 ML VIAL IM STA ×2 (01:24→02:17)
[2021-06-05] MEDS: CEFEPIME 1,000 MG in SYRINGE 0 ML IV SCH ×2 (05:16→16:08)
[2021-06-05] MEDS: HALOPERIDOL LACTATE 5 MG/ML 1 ML VIAL IM PRN ×2 (06:12→14:31)
[2021-06-05] MEDS ORDERED: POTASSIUM CHLORIDE CRTAB 20 MEQ TABCR PO STA (07:44)
[2021-06-05] MEDS ORDERED: amLODIPine BESYLATE 5 MG TAB PO SCH (09:00)
[2021-06-05] MEDS: ROSUVASTATIN CALCIUM 20 MG TAB PO SCH (09:08)
[2021-06-05] MEDS: METOPROLOL SUCC 25MG EXT REL TAB PO SCH (09:08)
[2021-06-05] MEDS: ENOXAPARIN INJ 40 MG/0.4 ML SYR SQ SCH (11:29)
--- NOTE | 2021-06-05 16:34 | Psychiatric Progress Note ---
Date of Service June 05, 2021 Impression / Recommendations Impression 80 yo female with AMS s/p lumpectomy, denies recent depression but certainly sleep disturbance can be stress reaction. Her visual abbott and confusion seem most consistent with delirium. MRI is essentially age related changes. No significant dementia at baseline. Doubt pseudodementia given acute onset and relative lack of other vegetative symptoms but could check b12 and folate. 06/05/21: acute worsening since initial consult, has received prn antipsychotic medication with some benefit from Haldol for abbott and paranoia. (1) Altered mental status: 06/05/21: should likely be offered standing antipsychotic for presumed delirium management if persists to minimize breakthrough anxiety/agitation. Recommend low dose Haldol BID or perhaps Seroquel since she can take PO and was having such sleep difficulties. Given age and risks associated with atypicals in the elderly I'd suggest 12.5 mg Seroquel. Will defer to hospitalist. Dr. Mohamud updated. 06/04/21: agree with avoiding benzos given fall risk and holding trazodone as can have anticholinergic properties. would want to ensure her melatonin prep is a combo agent with any benadryl (son thinks no). she did indicate to the liaison nurse that she'd consider meeting with a counselor about phase of life changes but currently will monitor Risk Factors Assessment Do You Have Access To A Gun?: No Interval History Identifying Information 80 yo female from [place] seen individually and with her son while boarding in the ED awaiting placement on telemetry. [facility] possible [facility] reaction. Chief Complaint non-sensical perseverative comments about a man. Review of Systems Notes patient unable to answer questions Subjective Subjective Patient was seen & assessed and interval progress reviewed with liaison and Dr. Mohamud, interim hx reviewed. Patient had a difficult time overnight required Zyprexa then Haldol prn for agitation, paranoia, and responding to internal stimuli. She was seen about 8 hrs after last dose of Haldol and was rocking, paranoid, talking nonstop, nurse thought she may be trying to say the rosary. Son had visited and was concerned as behavior highly unusual for her. Sleep was poor. Physical Exam Psychiatric Orientation: alert Eye Contact: + poor eye contact Motor Behavior: + psychomotor agitation (rocking) Speech: + abnormal rate/rhythm/volume of speech poorly articulated Mood: + depressed mood and + dysphoric mood Thought Process: + perseveration Thought Content: + paranoid Hallucinations: no auditory hallucinations and no visual hallucinations Cognition: + attention not intact Vital Signs (Past 24 Hours) Last Vital Signs Temp 36.6 C 06/05/21 09:12 Pulse 104 H 06/05/21 09:09 Resp 22 06/05/21 09:09 BP 128/82 06/05/21 09:09 Pulse Ox 98 06/05/21 09:12 Results & Data ([facility]) Current Inpatient Medications Current Inpatient Medications: Current Inpatient Medications Acetaminophen (Acetaminophen 325 Mg Tab) 650 mg PO Q4H PRN PRN Reason: Pain or Fever Stop: 07/04/21 00:40 Enoxaparin Sodium (Enoxaparin Inj 40 Mg/0.4 Ml Syr) 40 mg SQ QAM [facility]; Protocol Stop: 07/05/21 08:59 Last Admin: 06/05/21 11:29 Dose: Not Given Documented by: Haloperidol Lactate (Haloperidol Lactate 5 Mg/Ml 1 Ml Vial) 2 mg IM Q2H PRN PRN Reason: Agitation Stop: 07/05/21 05:32 Last Admin: 06/05/21 14:31 Dose: 2 mg Documented by: Promethazine HCl 6.25 mg/ (Sodium Chloride) 50.25 mls @ 201 mls/hr IV Q6H PRN PRN Reason: Nausea And Vomiting Stop: 07/04/21 00:40 Cefepime HCl 1,000 mg/ Syringe 11.3 mls @ 5.5 mls/min IV Q12H [facility]; Protocol Stop: 06/14/21 15:59 Last Admin: 06/05/21 16:08 Dose: 5.5 mls/min Documented by: Melatonin (Melatonin 3 Mg Tab) 3 mg PO HS PRN PRN Reason: Sleep Stop: 07/04/21 02:21 Metoprolol Succinate (Metoprolol Succ 25mg Ext Rel Tab) 25 mg PO DAILY [facility] Stop: 07/04/21 08:59 Last Admin: 06/05/21 09:08 Dose: 25 mg Documented by: Rosuvastatin Calcium (Rosuvastatin Calcium 20 Mg Tab) 40 mg PO DAILY [facility] Stop: 07/04/21 08:59 Last Admin: 12/07/21 09:08 Dose: 40 mg Documented by: (1) Altered mental status Altered mental status type: unspecified Qualified Code(s): R41.82 - Altered mental status, unspecified
[2021-06-05] MEDS ORDERED: METOPROLOL SUCC 25MG EXT REL TAB PO STA (21:05)
--- NOTE | 2021-06-05 23:59 | Hospitalist Progress Note ---
Date of Service June 05, 2021 Assessment & Plan (1) Acute metabolic encephalopathy: Plan: Now with delirium that is severe--this is looking less like COMPA 2/2 UTI. Adjusted cefepime abx to cefdinir. Ongoing symptoms with failed outpatient therapy over the last 4 weeks. Consult neurology for assistance. Starting seroquel 12.5mg qHS and stop trazodone. (2) Acute UTI: Plan: Cont with cefepime pending culture results and clinical improvement. (3) ROBERT (acute kidney injury): Plan: resolved with creat from 1.38 to 0.88 baseline. (4) Acute hypokalemia: Plan: replaced with supplementation. (5) DVT prophylaxis: Plan: Lovenox Full Dispo-cont hospitalization pending improvement in mental state. Leidy Mohamud DO [facility] Hospiralist Admission and Anticipated Discharge Date Admission Date: June 03, 2021 Subjective 80 yo F with encephalopathy thought secondary to UTI She is now delirious lying in bed easily awakened but then closes her eyes and has flight speech without hardly breathing. Words are clear when she is speaking, appears to be talking about abuse but changes subjects rapidly. She is in distress when touched or redirected. Disoriented. Review of Systems Review of Systems: Cannot obtain ROS 2/2 delirium Physical Exam Physical Exam: CONSTITUTIONAL: WNWD, vitals as above, distressed. Eyes closed and continues to speak very quickly to no one in particular, EYES: normal conjunctivae, no scleral icterus ENT: external ear and nose normal, MMM NECK: trachea midline RESPIRATORY: clear to auscultation bilaterally, no crackles, rales or wheezes, normal respiratory effort CARDIOVASCULAR: regular rate and rhythm, S1 and 2 heard without murmurs, gallops or rubs, no JVD, no peripheral edema CHEST: inspection of chest was normal GASTROINTESTINAL: soft, nontender,ND, no guarding MUSCULOSKELETAL: strength 5/5 throughout, head is normocephalic and atraumatic, neck supple, normal palpation of chest wall without tenderness SKIN: warm and dry NEUROLOGIC: CN 2-12 grossly intact, normal cognition, normal speech, no tremor PSYCHIATRIC: lethargic, delirious. Results & Data Results & Data ([facility]) Vital Signs (Past 12 Hours) Vital Signs Temp Pulse Resp BP Pulse Ox 06/05/21 23:25 36.8 C 79 18 169/74 H 95 06/05/21 20:12 36.8 C 93 H 18 177/118 H 97 06/05/21 17:26 36.7 C 106 H 18 172/91 H 97 Medications Administered Current Inpatient Medications Acetaminophen (Acetaminophen 325 Mg Tab) 650 mg PO Q4H PRN PRN Reason: Pain or Fever Stop: 07/04/21 00:40 Cefdinir (Cefdinir 300 Mg Cap) 300 mg PO BID [facility] Stop: 06/11/21 08:59 Enoxaparin Sodium (Enoxaparin Inj 40 Mg/0.4 Ml Syr) 40 mg SQ QAM [facility]; Protocol Stop: 07/05/21 08:59 Last Admin: 06/05/21 11:29 Dose: Not Given Documented by: Haloperidol Lactate (Haloperidol Lactate 5 Mg/Ml 1 Ml Vial) 2 mg IM Q2H PRN PRN Reason: Agitation Stop: 07/05/21 05:32 Last Admin: 06/05/21 14:31 Dose: 2 mg Documented by: Melatonin (Melatonin 3 Mg Tab) 3 mg PO HS PRN PRN Reason: Sleep Stop: 07/04/21 02:21 Metoprolol Succinate (Metoprolol Succ 25mg Ext Rel Tab) 25 mg PO BID [facility] Stop: 07/06/21 08:59 Quetiapine Fumarate (Quetiapine Fumarate 25 Mg Tablet) 12.5 mg PO HS [facility] Stop: 07/06/21 20:59 Rosuvastatin Calcium (Rosuvastatin Calcium 20 Mg Tab) 40 mg PO DAILY [facility] Stop: 07/04/21 08:59 Last Admin: 06/05/21 09:08 Dose: 40 mg Documented by:
[2021-06-06] MEDS: HALOPERIDOL LACTATE 5 MG/ML 1 ML VIAL IM PRN ×2 (04:22→17:42)
[2021-06-06] MEDS ORDERED: HALOPERIDOL LACTATE 5 MG/ML 1 ML VIAL IM STA (05:27)
[2021-06-06 06:28] LABS: Hematocrit (blood only) 41.8 % (37-47); Hemoglobin 13.8 g/dL (12.0-16.0); Mean Corpuscular Hemoglobin 28.9 pg (25-34); Mean Corpuscular Volume 87.6 fL (80-100); Mean Platelet Volume 9.6 fL (7.4-10.4); Platelet Count 226 K/uL (130-400); RDW Coefficient of Variation 13.7 % (11.5-14.5); RDW Standard Deviation 44.4 fL (36.4-46.3); Red Blood Count 4.77 M/uL (4.2-5.4); White Blood Count 7.45 K/uL (4.8-10.8)
[2021-06-06 06:57] LABS: BUN Creatinine Ratio 20.6 (10-20); Calcium 8.6 mg/dl (8.5-10.1); Creatinine Clr Calc Pharmacy 41.7 ml/min; Est GFR (African American) 67.3 ml/min; Potassium 3.8 mmol/L (3.5-5.1)
[2021-06-06] MEDS: ENOXAPARIN INJ 40 MG/0.4 ML SYR SQ SCH (08:23)
[2021-06-06] MEDS: METOPROLOL SUCC 25MG EXT REL TAB PO SCH ×2 (08:24→22:00)
[2021-06-06] MEDS: CEFDINIR 300 MG CAP PO SCH ×2 (08:24→22:00)
[2021-06-06] MEDS: ROSUVASTATIN CALCIUM 20 MG TAB PO SCH (08:24)
--- NOTE | 2021-06-06 12:59 | Psychiatric Progress Note ---
Date of Service June 06, 2021 Impression / Recommendations Impression 80 yo female with AMS s/p lumpectomy, denies recent depression but certainly sleep disturbance can be stress reaction. Her visual abbott and confusion seem most consistent with delirium. MRI is essentially age related changes. No significant dementia at baseline. Doubt pseudodementia given acute onset and relative lack of other vegetative symptoms but could check b12 and folate. 06/06/21: remains quite confused and paranoid but less psychomotor agitation compared to yesterday, was seen several hours after Haldol. Delirium seems out of proportion to her medical derangements but suspect some ing. 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 (1) Altered mental status: 06/06/21: titration of SEroquel to BID or higher hs dose at discretion of hospitalist. Haldol prn delirium as appears effective. Avoid anticholinergics. 06/05/21: should likely be offered standing antipsychotic for presumed delirium management if persists to minimize breakthrough anxiety/agitation. Recommend low dose Haldol BID or perhaps Seroquel since she can take PO and was having such sleep difficulties. Given age and risks associated with atypicals in the elderly I'd suggest 12.5 mg Seroquel. Will defer to hospitalist. Dr. Mohamud updated. 06/04/21: agree with avoiding benzos given fall risk and holding trazodone as can have anticholinergic properties. would want to ensure her melatonin prep is a combo agent with any benadryl (son thinks no). she did indicate to the liaison nurse that she'd consider meeting with a counselor about phase of life changes but currently will monitor Risk Factors Assessment Do You Have Access To A Gun?: No Interval History Identifying Information 80 yo female from [place] seen individually and with her son while boarding in the ED awaiting placement on telemetry. [facility] reaction. Chief Complaint "I did something bad". nonsensical mumbling Review of Systems Notes patient is unable to complete Subjective Subjective Patient was seen & assessed and interval progress reviewed with liaison, interim chart reviewed. Patient required soft wrist restraints overnight for safety as she pulled at IV and remained confused/agitated. She received Haldol X2 (04 am and 5:40 am) and was started on low dose Seroquel hs to address abbott and agitation. Physical Exam Psychiatric Orientation: + not alert Eye Contact: + poor eye contact Motor Behavior: no abnormal motor movements Speech: + abnormal rate/rhythm/volume of speech Mood: + dysphoric mood Thought Process: + circumstantial thought process Thought Content: reality based without delusions Suicidal Thoughts: denies suicidal thoughts Homicidal Thoughts: denies homicidal thoughts Hallucinations: no auditory hallucinations and no visual hallucinations Cognition: language grossly intact; + attention not intact Insight: + limited insight Judgement: + limited judgement Vital Signs (Past 24 Hours) Last Vital Signs Temp 36.8 C 06/05/21 23:25 Pulse 79 06/05/21 23:25 Resp 18 06/05/21 23:25 BP 169/74 H 06/05/21 23:25 Pulse Ox 95 06/05/21 23:25 Results & Data ([facility]) Laboratory Results Laboratory Results - last 24 hr 06/06/21 06/06/21 06/06/21 06:09 06:09 06:09 WBC 7.45 RBC 4.77 Hgb 13.8 Hct 41.8 MCV 87.6 MCH 28.9 MCHC 33.0 RDW Std Deviation 44.4 RDW Coeff of Fozia 13.7 Plt Count 226 MPV 9.6 Sodium Potassium Chloride Carbon Dioxide Anion Gap BUN Creatinine Est Cr Clr Drug Dosing Est GFR ( Amer) Est GFR (Non-Af Amer) BUN/Creatinine Ratio Glucose Calcium Magnesium 2.1 Vitamin B12 389 Folate 16.00 06/06/21 06:09 WBC RBC Hgb Hct MCV MCH MCHC RDW Std Deviation RDW Coeff of Fozia Plt Count MPV Sodium 140 Potassium 3.8 Chloride 107 Carbon Dioxide 25 Anion Gap 8.0 BUN 19 H Creatinine 0.93 Est Cr Clr Drug Dosing 41.7 Est GFR ( Amer) 67.3 Est GFR (Non-Af Amer) 58.0 BUN/Creatinine Ratio 20.6 H Glucose 108 H Calcium 8.6 Magnesium Vitamin B12 Folate Current Inpatient Medications Current Inpatient Medications: Current Inpatient Medications Acetaminophen (Acetaminophen 325 Mg Tab) 650 mg PO Q4H PRN PRN Reason: Pain or Fever Stop: 07/04/21 00:40 Cefdinir (Cefdinir 300 Mg Cap) 300 mg PO BID [facility] Stop: 06/11/21 08:59 Last Admin: 06/06/21 08:24 Dose: 300 mg Documented by: Enoxaparin Sodium (Enoxaparin Inj 40 Mg/0.4 Ml Syr) 40 mg SQ QAM [facility]; Protocol Stop: 07/05/21 08:59 Last Admin: 06/06/21 08:23 Dose: 40 mg Documented by: Haloperidol Lactate (Haloperidol Lactate 5 Mg/Ml 1 Ml Vial) 4 mg IM Q4H PRN PRN Reason: Agitation Stop: 07/05/21 05:32 Melatonin (Melatonin 3 Mg Tab) 3 mg PO HS PRN PRN Reason: Sleep Stop: 07/04/21 02:21 Metoprolol Succinate (Metoprolol Succ 25mg Ext Rel Tab) 25 mg PO BID [facility] Stop: 07/06/21 08:59 Last Admin: 06/06/21 08:24 Dose: 25 mg Documented by: Quetiapine Fumarate (Quetiapine Fumarate 25 Mg Tablet) 12.5 mg PO HS [facility] Stop: 07/06/21 20:59 Rosuvastatin Calcium (Rosuvastatin Calcium 20 Mg Tab) 40 mg PO DAILY [facility] Stop: 07/04/21 08:59 Last Admin: 06/06/21 08:24 Dose: 40 mg Documented by: (1) Altered mental status Altered mental status type: unspecified Qualified Code(s): R41.82 - Altered mental status, unspecified
--- NOTE | 2021-06-06 16:15 | Electrocardiogram Report ---
Test Reason : Blood Pressure : / mmHG Vent. Rate : 078 BPM Atrial Rate : 078 BPM P-R Int : 152 ms QRS Dur : 090 ms QT Int : 366 ms P-R-T Axes : 000 205 181 degrees QTc Int : 417 ms Suspect arm lead reversal, interpretation assumes no reversal Normal sinus rhythm Lateral infarct , age undetermined Abnormal ECG When compared with ECG of 03-JUN-2021 16:43, QRS axis Shifted left Criteria for Septal infarct are no longer Present Lateral infarct is now Present T wave inversion more evident in Lateral leads Confirmed by Alex Gore ([id number]) on 06/06/2021 4:14:43 PM Referred By: REFERRED SELF Confirmed By:Alex Gore
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
[2021-06-06] MEDS ORDERED: QUEtiapine FUMARATE 25 MG TABLET PO SCH (21:00)
[2021-06-07] MEDS: HALOPERIDOL LACTATE 5 MG/ML 1 ML VIAL IM PRN (04:15)
--- NOTE | 2021-06-07 08:24 | Consultation Report ---
DATE OF SERVICE: 06/06/2021 HISTORY OF PRESENT ILLNESS: I am seeing the patient for evaluation of possible delirium. This patie nt is an 80-year-old female seen in conjunction with her son. The patient had a lumpectomy the day a kena Paulson done under general anesthesia. Her son does not know whether or not she had a sent inel node biopsy. She was discharged with a narcotic, but did not take the narcotic. She was mildly confused on the day of surgery, but the next day became confused and agitated and was hallucinating and thought she saw the devil. Family brought her in to primary care who either continued treatment for her urinary tract infection or started treatment for urinary tract infection. The patient's symp toms waxed and waned, and over the weekend, she became more confused and agitated and was brought to our facility. The patient had been seen early on in the Emergency Room, given Ativan. Primary care ap parently gave her another medication, which apparently would "take time to become effective." This m akes it sound like an SSRI, although trazodone is on her home list. She has been rather agitated intermittently and has required sedation with Haldol and Seroquel. Her son indicates that she has no baseline cognitive dysfunction. She is the primary caregiver for her cristian funes who has medical illnesses. She drives, does the cooking, does the bill pay and his medication administration and care. She has no prior history of psychiatric disease or hallucinations. She ma y have been sleep deprived prior to the lumpectomy. The son indicates that several days prior to the lumpectomy, she called some family members during the middle of the night and the patient admits alt kash unclear if correctly that she had had hallucinations of the devil some time prior to the surger y. The patient indicates that she has no headaches. She has no history of head injury. Her mother may have had cognitive issues associated with medications, but prior to this, there was no significant co gnitive dysfunction, psychiatric disease, history of head injury, or history of stroke. There is no history of medication withdrawal. The patient was transiently on cefepime, which has bee n switched out for cefdinir. No loss of consciousness has been noted. The patient reports seeing the devil, perhaps hearing voices. Denies a headache, weakness, or numbne ss. When trying to reassure her about her symptoms of delirium, she exhibits a lot of guilt. DIAGNOSTICS: MRI of the brain, which I reviewed with and without contrast, is noncontributory. White count on admission was 11.8 with 9.7 neutrophils. Serum sodium was initially 135, potassium 2.9, BUN and creatinine were 34/1.38 which is above baseline. Glucose 172. Hemoglobin A1c 6.2. AST 40, ALT normal. Ammonia 12. B12, folate and thyroid function normal. Urinalysis was cloudy, 1+ ketones, 2+ blood, trace leukocyte esterase, greater than 30 white cells and the culture grew out Klebsiella pne umoniae and Citrobacter freundii. Her chest x-ray was negative. Electrocardiogram showed normal sin us rhythm, lateral infarct, age indeterminate. PAST MEDICAL HISTORY: Breast cancer with lumpectomy, unknown to this examiner whether there was a se ntinel node biopsy. Also, hypertension, hyperlipidemia, ductal carcinoma in situ and osteoporosis. PAST SURGICAL HISTORY: Hysterectomy, breast biopsy, right breast lumpectomy. FAMILY HISTORY: Breast cancer. SOCIAL HISTORY: Nonsmoker. No alcohol intake. 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 No allergies. HOME MEDICATIONS: Calcium carbonate, metoprolol, raloxifene, rosuvastatin, and trazodone. PHYSICAL EXAMINATION: VITAL SIGNS: Blood pressure 147/74, pulse 75, respiration 18, temperature 36.4. NEUROLOGIC: The patient is awake and alert. Mentation is mildly slow and she is mildly inattentive. She is oriented x3. No right/left confusion. Naming, repetition and 3-step commands are unremarka ble. Memory is 2/3 at 3 minutes. The patient is aware of the president and the most recent holiday. Pupils are equal, postsurgical. Optic nerves are difficult to visualize. Motility is normal. The re is normal facial symmetry. There may be a minor decrease in blink frequency. There is no resting tremor, but there is cogwheel rigidity at the wrists. There is mild generalized bradykinesia. Ther e is symmetric strength, symmetric reflexes, downgoing toes. Ehvgox-[id number]-plbu is marginally tremulous. Havx-ib-frtn is normal. Gait is fairly unremarkable, although she does tend to turn en bloc. IMPRESSION AND PLAN: This patient appears to have delirium, which is multifactorial and related to d ehydration, urinary tract infection, hospitalization and recent anesthesia. History is critical in this regard. If the patient indeed was cognitively intact prior and did not browning ve hallucinations prior, then likely this is simply delirium. If, however, she had some confusion pr ior and prior hallucinations, it does raise the question of a Lewy body dementia. I do see some par kinsonism apparently on exam. I think that may reflect the Seroquel and the Haldol that she was give n. Agree with the use of atypical phenothiazines to help with agitation. I do not think there is any wv ed for additional testing at this point, likely the patient will gradually improve over time. She wi ll need to be reexamined post-discharge to see what she is at baseline, to see what cognition is and whether or not hallucinations persist. Job ID: [id number]
[2021-06-07] MEDS: ROSUVASTATIN CALCIUM 20 MG TAB PO SCH (08:37)
[2021-06-07] MEDS: CEFDINIR 300 MG CAP PO SCH ×2 (08:37→20:57)
[2021-06-07] MEDS: ENOXAPARIN INJ 40 MG/0.4 ML SYR SQ SCH (08:38)
[2021-06-07] MEDS: METOPROLOL SUCC 25MG EXT REL TAB PO SCH ×2 (08:38→20:57)
--- NOTE | 2021-06-07 09:50 | Neurology Progress Note ---
Date of Service June 07, 2021 Assessment & Plan (1) Acute metabolic encephalopathy: Plan: 1. MRI brain - no acute findings 2. UTI- currently treatment to culture 3. psychiatry for delirium/hallucinations 4. will follow up as outpatient for further evaluation of possible LB dementia. will be available for questions concerns. (2) Acute UTI: Admission and Anticipated Discharge Date Admission Date: June 03, 2021 Supervising Physician Co-Signing Physician Notes I have seen and discussed above patient with Dr Kathrin Hawkins, neurology. Patient seen and examined son indicates she is much better today there have been no further hallucinations although she still has some guilt and concerns. There is still some minor facial masking and she is mildly generally bradykinetic but probably somewhat improved impression delirium post surgery unclear if some hallucinations or cognitive issues preceded the surgery this will take time as the delirium resolves. The patient should see us in 3 to 4 weeks post discharge to see if we think there is an underlying disorder such as Lewy body dementia. Sign the Kathrin Hawkins MD Silvai Gatica is an 80 year old female who presented to [facility] ED 06/03/2021 with confusion.� It started the day before when she had a lumpectomy of the right breast.� She has been slightly confused and has been waxing and waning.� then the 24 hours prior to admission she has been significantly more confused.� her son is in the room and thinks there is a marked improvement since yesterday. he is talking in sentences appropriately. she was walking around the unit today with a nursing and using a walker. denies CP, SOB, abdominal pain. Review of Systems Review of Systems: All systems reviewed & are unremarkable except as noted in HPI & below Physical Exam Physical Exam: Physical Exam: Constitutional: appearance nourished, healthy and normal Ears, Nose, Mouth and Throat: mucous membranes moist, no injection and skin normal, eyes normal Cardiovascular: normal S-1 and S-2 and regular rate and rhythm Respiratory: clear to auscultation (CTA) and no rales, rhonchi or wheeze Musculoskeletal: no peripheral edema Skin: no stigmata of neurocutaneous disease noted and normal and intact Eyes: extraocular muscles intact (EOMI) and pupils equal, round and reactive to light (PERRL), decreased blink NEUROLOGIC EXAMINATION: Mental status: Alert and interactive Oriented to [facility], 2020, [place] Oriented to person Speech fluent with no evidence of aphasia Cranial Nerves smile eye brow raise symmetric Sensory: no sensory deficits Coordination: finger to nose no bi pass Gait/Stance: Posture normal. Gait normal: with steady with steps, base, turning-a little off balance but corrects herself,tandem gait. Motor: Negative for pronator drift of out stretched arms with eyes closed. 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 Mild cerebral cortical atrophy and remote small vessel disease are present.
--- NOTE | 2021-06-07 13:38 | Communication Note ---
Date of Service: June 07, 2021 Interim progress reviewed. Stopped by room and patient was resting so did not waken as calmer overnight. Still confused and anxious at times but less psy chomotor restlessness and abbott. Continue current management. Liaison will follow.
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
[2021-06-07] MEDS: QUEtiapine FUMARATE 25 MG TABLET PO SCH (20:55)
[2021-06-08 09:07] LABS: Hematocrit (blood only) 39.3 % (37-47); Hemoglobin 12.9 g/dL (12.0-16.0); Mean Corpuscular Hemoglobin 28.9 pg (25-34); Mean Corpuscular Hgb Conc 32.8 g/dL (32-36); Mean Corpuscular Volume 87.9 fL (80-100); Mean Platelet Volume 10.1 fL (7.4-10.4); Platelet Count 229 K/uL (130-400); RDW Coefficient of Variation 13.9 % (11.5-14.5); RDW Standard Deviation 44.8 fL (36.4-46.3); Red Blood Count 4.47 M/uL (4.2-5.4); White Blood Count 6.78 K/uL (4.8-10.8)
[2021-06-08 09:27] LABS: BUN Creatinine Ratio 20.2 (10-20); Calcium 8.3 mg/dl (8.5-10.1); Creatinine Clr Calc Pharmacy 37.6 ml/min; Est GFR (African American) 59.5 ml/min; Est GFR (Non-African American) 51.3 ml/min; Magnesium 2.3 mg/dl (1.8-2.4); Potassium 3.7 mmol/L (3.5-5.1)
[2021-06-08] MEDS: CEFDINIR 300 MG CAP PO SCH ×2 (10:13→21:31)
[2021-06-08] MEDS: METOPROLOL SUCC 25MG EXT REL TAB PO SCH ×2 (10:13→21:31)
[2021-06-08] MEDS: QUEtiapine FUMARATE 25 MG TABLET PO SCH ×2 (10:13→21:29)
[2021-06-08] MEDS: ENOXAPARIN INJ 40 MG/0.4 ML SYR SQ SCH (10:14)
[2021-06-08] MEDS: ROSUVASTATIN CALCIUM 20 MG TAB PO SCH (10:15)
--- NOTE | 2021-06-08 12:53 | Hospitalist Progress Note ---
Date of Service June 08, 2021 Assessment & Plan (1) Acute metabolic encephalopathy: Plan: Sleepy today but remains oriented without agitation or hallucinations in the past 24 hours. Recent intermittent delirium 2/2 poss UTI vs PTSD or other trauma. Continues on cefdinir. Increased seroquel to 12.5mg PO BID and stopped trazodone this admission, however, she is too sleepy today so will go back to seroquel qHS. (2) Acute UTI: Plan: asymptomatic, cont with cefdinir. (3) ROBERT (acute kidney injury): Plan: resolved with creat from 1.38 to 0.88 baseline. (4) DVT prophylaxis: Plan: Lovenox Full Dispo-cont hospitalization pending improvement in mental state, consistent lack of confusion symptoms. Likely will be able to send her home as long as she is staying oriented. Leidy Mohamud DO [facility] Hospitalist Admission and Anticipated Discharge Date Admission Date: June 03, 2021 Subjective 80 yo F with encephalopathy thought secondary to UTI She has remained oriented and without any agitation or hallucinations now for 24 hours. With the increase in seroquel to BID, the am dose has seemed to make her too sleepy and she has slept most of the morning but is still easily awakened, oriented and follows instructions. Review of Systems Review of Systems: All systems were reviewed and negative except as indicated above. Physical Exam Physical Exam: CONSTITUTIONAL: WNWD, vitals as above, NAD EYES: normal conjunctivae, no scleral icterus ENT: external ear and nose normal, MMM NECK: trachea midline RESPIRATORY: clear to auscultation bilaterally, no crackles, rales or wheezes, normal respiratory effort CARDIOVASCULAR: regular rate and rhythm, S1 and 2 heard without murmurs, gallops or rubs, no JVD, no peripheral edema CHEST: inspection of chest was normal GASTROINTESTINAL: soft, nontender, ND, no guarding MUSCULOSKELETAL: no gross focal deficits, lethargy prevents full exam. SKIN: warm and dry NEUROLOGIC: sleepy but easily awakens and orients, able to follow instructions. Results & Data Results & Data ([facility]) Vital Signs (Past 12 Hours) Vital Signs Temp Pulse Resp BP Pulse Ox 06/08/21 07:02 37.0 C 70 16 136/68 96 Laboratory Results Short CBC 06/08/21 Range/Units 08:44 WBC 6.78 (4.8-10.8) K/uL Hgb 12.9 (12.0-16.0) g/dL Hct 39.3 (37-47) % Plt Count 229 (130-400) K/uL [facility] 06/08/21 08:44 Sodium 141 Potassium 3.7 Chloride 106 Carbon Dioxide 29 BUN 21 H Creatinine 1.03 Glucose 169 H Calcium 8.3 L Medications Administered Current Inpatient Medications Acetaminophen (Acetaminophen 325 Mg Tab) 650 mg PO Q4H PRN PRN Reason: Pain or Fever Stop: 07/04/21 00:40 Cefdinir (Cefdinir 300 Mg Cap) 300 mg PO BID [facility] Stop: 06/11/21 08:59 Last Admin: 06/08/21 10:13 Dose: 300 mg Documented by: Enoxaparin Sodium (Enoxaparin Inj 40 Mg/0.4 Ml Syr) 40 mg SQ QAM [facility]; Protocol Stop: 07/05/21 08:59 Last Admin: 06/08/21 10:14 Dose: 40 mg Documented by: Haloperidol Lactate (Haloperidol Lactate 5 Mg/Ml 1 Ml Vial) 4 mg IM Q4H PRN PRN Reason: Agitation Stop: 07/05/21 05:32 Last Admin: 06/07/21 04:15 Dose: 4 mg Documented by: Melatonin (Melatonin 3 Mg Tab) 3 mg PO HS PRN PRN Reason: Sleep Stop: 07/04/21 02:21 Metoprolol Succinate (Metoprolol Succ 25mg Ext Rel Tab) 25 mg PO BID [facility] Stop: 07/06/21 08:59 Last Admin: 06/08/21 10:13 Dose: 25 mg Documented by: Quetiapine Fumarate (Quetiapine Fumarate 25 Mg Tablet) 12.5 mg PO BID [facility] Stop: 07/07/21 20:59 Last Admin: 06/08/21 10:13 Dose: 12.5 mg Documented by: Rosuvastatin Calcium (Rosuvastatin Calcium 20 Mg Tab) 40 mg PO DAILY [facility] Stop: 07/04/21 08:59 Last Admin: 06/08/21 10:15 Dose: 40 mg Documented by:
--- NOTE | 2021-06-08 13:45 | Communication Note ---
Date of Service: June 08, 2021 patient somewhat tired this am per liaison. calm certainly better than perseverative/agitated but now that delirium improving some, if persists would consolidate Seroquel to night. Dr. Merritt to assume clinical responsibility for liaison service today at 1700.
[2021-06-09] MEDS: METOPROLOL SUCC 25MG EXT REL TAB PO SCH ×2 (08:35→20:31)
[2021-06-09] MEDS: ROSUVASTATIN CALCIUM 20 MG TAB PO SCH (08:36)
[2021-06-09] MEDS: CEFDINIR 300 MG CAP PO SCH ×2 (08:36→20:31)
[2021-06-09] MEDS: QUEtiapine FUMARATE 25 MG TABLET PO SCH ×2 (09:21→20:32)
[2021-06-09] MEDS: ENOXAPARIN INJ 40 MG/0.4 ML SYR SQ SCH (09:22)
--- NOTE | 2021-06-09 09:29 | Hospitalist Progress Note ---
Date of Service June 09, 2021 Assessment & Plan (1) Acute metabolic encephalopathy: Plan: Recent intermittent delirium 2/2 poss UTI vs PTSD or other trauma. Continue cefdinir. Psychiatry recs noted Continue seroquel 12.5mg PO BID for now Trazodone had been stopped this admission (2) Acute UTI: Plan: asymptomatic, cont with cefdinir . (3) ROBERT (acute kidney injury): Plan: Resolved (4) DVT prophylaxis: Plan: Lovenox Full Dispo-cont hospitalization pending persistent improvement in mental state Will monitor patient over the weekend Admission and Anticipated Discharge Date Admission Date: June 03, 2021 Subjective 80-year-old woman with encephalopathy likely due to UTI. Patient seen and examined this morning. Patient is fully awake alert oriented to person, place and time. Reports concern of memory deficits over the past few days. She denies any complaints at this time except worry of her memory problems and care she will have at home. When asked about depression, she states that she could be depressed or anxious but not sure. However, she denies any suicidal or homicidal ideation. She reported there might have been people talking in her room overnight but she was not sure if it was the TV Physical Exam Constitutional: Elderly woman in no obvious distress Eyes: PERRL, conjunctivae normal, anicteric sclerae ENMT: external ear and nose normal, oropharynx normal Respiratory: normal respiratory effort, lungs clear to auscultation Cardiovascular: Rate/Rhythm: regular rate and regular rhythm S1 S2 Gastrointestinal (Abdomen): normal bowel sounds, soft, nontender, no hepatosplenomegaly Musculoskeletal: No pedal edema Neurologic: PERRL, EOMI, accommodation nl, no face palsy, no dysarthria Psychiatric: Orientation: alert and oriented x 3 Results & Data Results & Data ([facility]) Vital Signs (Past 12 Hours) Vital Signs Temp Pulse Resp BP BP Pulse Ox 06/09/21 07:26 36.5 C 80 18 158/73 H 94 06/08/21 22:49 36.7 C 76 18 160/78 H 94 Laboratory Results Abnormal lab results 06/08/21 Range/Units 08:44 BUN 21 H (7-18) mg/dl BUN/Creatinine Ratio 20.2 H (10-20) Glucose 169 H (70-99) mg/dl Calcium 8.3 L (8.5-10.1) mg/dl
[2021-06-10 07:00] LABS: BUN Creatinine Ratio 24.7 (10-20); Calcium 8.8 mg/dl (8.5-10.1); Creatinine Clr Calc Pharmacy 43.5 ml/min; Est GFR (African American) 70.9 ml/min; Est GFR (Non-African American) 61.2 ml/min; Potassium 3.4 mmol/L (3.5-5.1)
[2021-06-10] MEDS: ROSUVASTATIN CALCIUM 20 MG TAB PO SCH (08:27)
[2021-06-10] MEDS: QUEtiapine FUMARATE 25 MG TABLET PO SCH ×2 (08:27→20:46)
[2021-06-10] MEDS: CEFDINIR 300 MG CAP PO SCH ×2 (08:27→20:47)
[2021-06-10] MEDS: METOPROLOL SUCC 25MG EXT REL TAB PO SCH ×2 (08:28→20:47)
[2021-06-10] MEDS: ENOXAPARIN INJ 40 MG/0.4 ML SYR SQ SCH (09:15)
--- NOTE | 2021-06-10 14:17 | Hospitalist Progress Note ---
Date of Service June 10, 2021 Assessment & Plan (1) Acute metabolic encephalopathy: Plan: Recent intermittent delirium 2/2 poss UTI vs PTSD or other trauma. Continue cefdinir. Psychiatry recs noted Continue seroquel 12.5mg PO BID for now. Follow up with psych if meds need adjustments over time Trazodone had been stopped this admission (2) Acute UTI: Plan: Cont with cefdinir to complete treatment (3) ROBERT (acute kidney injury): Plan: Resolved (4) DVT prophylaxis: Plan: Lovenox Full Dispo-cont hospitalization pending persistent improvement in mental state Admission and Anticipated Discharge Date Admission Date: June 03, 2021 Subjective 80-year-old woman with encephalopathy likely due to UTI. Patient seen and examined today She reports concern about everything going on RN reported patient had hallucination overnight stating she saw a '[place]' However patient stated it was not overnight but some days ago She denied any particular complaints and only stated she is worried about hospital stay, paying for insurance and being overwhelmed with her medical problems Physical Exam Eyes: PERRL, conjunctivae normal, anicteric sclerae ENMT: external ear and nose normal, oropharynx normal Respiratory: normal respiratory effort, lungs clear to auscultation Cardiovascular: Rate/Rhythm: regular rate and regular rhythm S1 S2 Gastrointestinal (Abdomen): normal bowel sounds, soft, nontender, no hepatosplenomegaly Musculoskeletal: No pedal edema Neurologic: PERRL, EOMI, accommodation nl, no face palsy, no dysarthria Psychiatric: Orientation: alert and oriented x 3 Anxious affect, cooperative Results & Data Results & Data ([facility]) Vital Signs (Past 12 Hours) Vital Signs Temp Pulse Resp BP Pulse Ox 06/10/21 07:16 36.5 C 76 14 163/53 H 97 Laboratory Results Abnormal lab results 06/10/21 Range/Units 06:27 Potassium 3.4 L (3.5-5.1) mmol/L BUN 22 H (7-18) mg/dl BUN/Creatinine Ratio 24.7 H (10-20) Glucose 116 H (70-99) mg/dl
[2021-06-11] MEDS: QUEtiapine FUMARATE 25 MG TABLET PO SCH ×2 (08:41→20:30)
[2021-06-11] MEDS: ENOXAPARIN INJ 40 MG/0.4 ML SYR SQ SCH (08:41)
[2021-06-11] MEDS: METOPROLOL SUCC 25MG EXT REL TAB PO SCH ×2 (08:41→20:33)
[2021-06-11] MEDS: ROSUVASTATIN CALCIUM 20 MG TAB PO SCH (08:42)
--- NOTE | 2021-06-11 09:35 | Hospitalist Progress Note ---
Date of Service June 11, 2021 Assessment & Plan (1) Acute metabolic encephalopathy: Plan: Recent intermittent delirium 2/2 poss UTI vs PTSD or other trauma. Patient anxious this morning, states that she feels confused however answers orientation questions appropriately. Does not feel like she is strong enough to go home. Psychiatry recs noted Continue seroquel 12.5mg PO BID for now. Trazodone had been stopped this admission PT recommending inpatient rehab versus home with 24-hour care. Case management to follow. (2) Acute UTI: Plan: IV cefepime --> p.o. cefdinir (day 9 of antibiotics), would continue 1 additional day to complete 10-day course Urine culture positive for Klebsiella and Citrobacter Blood cultures negative (3) ROBERT (acute kidney injury): Plan: Resolved with IVF (4) Breast cancer: Plan: S/p recent surgery [facility] Outpatient follow-up (5) DVT prophylaxis: Plan: Lovenox Dispo -patient currently lives at home with her son. PT recommending inpatient rehab versus home with 24-hour care. Case management to follow. (6) Depression: Admission and Anticipated Discharge Date Admission Date: June 03, 2021 Supervising Physician Co-Signing Physician Notes I have seen and examined the patient and have discussed the case with the provider above. I agree with the assessment and plan as stated. 80-year-old female with tendency to be easily overwhelmed this evening. She admits to depression symptoms. She appears overwhelmed even thinking about tomorrow. She is anxious about leaving the hospital and lacks confidence in her abilities. She is concerned about financial obligations with her insurance company. My physical exam reveals an well-nourished well-developed female who is hemodynamically stable and oxygenating well on room air. She is in no acute distress and there are no gross abnormalities on physical exam this evening. Continue plan above, notably she is not on an antidepressant which may be considered. We will discuss this with her further prior to discharge DO Cade Subjective Patient seen and examined. Follow-up for UTI, metabolic encephalopathy. Patient reports she feels confused this morning however answers orientation questions appropriately. Seems to be somewhat anxious. Denies chest pain or shortness of breath. Tolerating meals. No abdominal pain, nausea. No urinary symptoms. Review of Systems Review of Systems: ROS per HPI, all other systems reviewed and negative Physical Exam Constitutional: WD/WN, vitals as above Respiratory: normal respiratory effort, lungs clear to auscultation Cardiovascular: Rate/Rhythm: regular rate and regular rhythm Vessels: normal peripheral pulses Extremities: no edema Gastrointestinal (Abdomen): Percussion/Palpation: abdomen soft; abdomen nontender Skin: no rashes, warm and dry Neurologic: no focal motor deficits Psychiatric: Orientation: alert and oriented x 3 Affect: + anxious affect Results & Data Results & Data ([facility]) Vital Signs (Past 12 Hours) Vital Signs Temp Pulse Resp BP Pulse Ox 06/11/21 07:49 36.7 C 80 16 156/78 H 97 06/10/21 22:08 36.5 C 71 18 162/78 H 96
[2021-06-12] MEDS ORDERED: QUEtiapine FUMARATE 25 MG TABLET PO STA (04:08)
[2021-06-12] MEDS: ENOXAPARIN INJ 40 MG/0.4 ML SYR SQ SCH (08:31)
[2021-06-12] MEDS: METOPROLOL SUCC 25MG EXT REL TAB PO SCH ×2 (08:31→20:12)
[2021-06-12] MEDS: ROSUVASTATIN CALCIUM 20 MG TAB PO SCH (08:31)
[2021-06-12] MEDS: QUEtiapine FUMARATE 25 MG TABLET PO SCH ×2 (08:32→20:12)
--- NOTE | 2021-06-12 16:40 | Hospitalist Progress Note ---
Date of Service June 12, 2021 Assessment & Plan (1) Acute metabolic encephalopathy: Plan: Recent intermittent delirium 2/2 poss UTI vs PTSD or other trauma. Presented with severe confusion and visual hallucinations. Psychiatry recs noted On Seroquel 12.5 mg at bedtime, home trazodone discontinued. Patient is anxious however alert and oriented. Could consider starting an SSRI however would prefer to discharge patient and observe outside of the hospital. Patient may improve once back to a familiar environment, more normal routine. Possible discharge to [facility] where currently resides. (2) Acute UTI: Plan: IV cefepime --> p.o. cefdinir. Course completed. Urine culture positive for Klebsiella and Citrobacter Blood cultures negative (3) ROBERT (acute kidney injury): Plan: Resolved with IVF (4) Breast cancer: Plan: S/p recent surgery with Dr. Ernst Villarreal at [facility]. Outpatient follow-up. Son reported patient is to start radiation treatments. (5) DVT prophylaxis: Plan: Lovenox Dispo -Patient currently lives at home with her son. Medically stable for discharge. PT recommending inpatient rehab versus home with 24-hour care. Referral placed to [facility] where patient's currently resides. (6) Depression: Admission and Anticipated Discharge Date Admission Date: June 03, 2021 Supervising Physician Co-Signing Physician Notes I have seen and examined the patient and have discussed the case with the provider above. I agree with the assessment and plan as stated. 80-year-old female with metabolic encephalopathy 2/2 UTI which is all resolved. She is stable for discharge but awaiting disposition and also applied for MA today. Denies any issues today. Appears to be mentating at her baseline. My physical exam reflecs that above. Likely dc in am after clarification of support at home vs benefit and bed availability of senior care. Consider outpatient initiation of an SSRI. Cade, DO Subjective Patient seen and examined. Follow-up for UTI, metabolic encephalopathy. Patient sitting at the edge of the bed, no acute distress. Patient is again anxious about discharge plans. Patient reassured. Offers no other complaints. Review of Systems Review of Systems: ROS per HPI, all other systems reviewed and negative Physical Exam Constitutional: WD/WN, vitals as above Respiratory: normal respiratory effort, lungs clear to auscultation Cardiovascular: Rate/Rhythm: regular rate and regular rhythm Extremities: no edema Skin: no rashes, warm and dry Neurologic: no focal motor deficits Psychiatric: Orientation: alert and oriented x 3 Affect: + anxious affect Results & Data Results & Data ([facility]) Vital Signs (Past 12 Hours) Vital Signs Temp Pulse Resp BP Pulse Ox 06/12/21 15:00 36.4 C L 78 16 145/75 H 97 06/12/21 07:52 36.8 C 75 16 146/77 H 96
[2021-06-13] MEDS: ROSUVASTATIN CALCIUM 20 MG TAB PO SCH (08:32)
[2021-06-13] MEDS: METOPROLOL SUCC 25MG EXT REL TAB PO SCH ×2 (08:33→20:48)
[2021-06-13] MEDS: ENOXAPARIN INJ 40 MG/0.4 ML SYR SQ SCH (08:34)
--- NOTE | 2021-06-13 13:43 | Hospitalist Progress Note ---
Date of Service June 13, 2021 Assessment & Plan (1) Acute metabolic encephalopathy: Plan: Recent intermittent delirium 2/2 poss UTI vs PTSD or other trauma. Presented with severe confusion and visual hallucinations. Psychiatry recs noted On Seroquel 12.5 mg at bedtime, home trazodone discontinued. Patient is anxious however alert and oriented. Discussed anxiety issues with psychiatry today. Could consider increasing Seroquel to 25 mg at bedtime however when this was discussed with the patient, she is hesitant due to the medication causing some lethargy. Could consider starting an SSRI however would prefer to discharge patient and observe outside of the hospital. Patient may improve once back to a familiar environment, more normal routine. (2) Acute UTI: Plan: IV cefepime --> p.o. cefdinir. Course completed. Urine culture positive for Klebsiella and Citrobacter Blood cultures negative (3) ROBERT (acute kidney injury): Plan: Resolved with IVF (4) Breast cancer: Plan: S/p recent surgery with Dr. Ernst Villarreal at [facility]. Outpatient follow-up. Son reported patient is to start radiation treatments. (5) DVT prophylaxis: Plan: Lovenox Dispo -Patient currently lives at home with her son. Medically stable for discharge. PT recommending inpatient rehab versus home with 24-hour care. Discharge to [facility] tomorrow Admission and Anticipated Discharge Date Admission Date: June 03, 2021 Supervising Physician Co-Signing Physician Notes I have seen and examined the patient and have discussed the case with the provider above. I agree with the assessment and plan as stated. 80-year-old female with metabolic encephalopathy 2/2 UTI which is all resolved. She is stable for discharge but awaiting disposition. Denies any issues today. She appears to be anxious about almost everything. We'll get curbside psychiatry recommendation. Appears to be mentating at her baseline. My physical exam reflecs that above. Likely dc in am after clarification of support at home vs benefit and bed availability of group home. Consider outpatient initiation of an SSRI. Subjective Patient seen and examined. Follow-up for UTI, metabolic encephalopathy. Patient remains anxious. She was reassured. Offers no physical complaints. Review of Systems Review of Systems: ROS per HPI, all other systems reviewed and negative Physical Exam Constitutional: WD/WN, vitals as above Respiratory: normal respiratory effort, lungs clear to auscultation Cardiovascular: Rate/Rhythm: regular rate and regular rhythm Vessels: normal peripheral pulses Extremities: no edema Gastrointestinal (Abdomen): Percussion/Palpation: abdomen soft; abdomen nontender Skin: no rashes, warm and dry Neurologic: no focal motor deficits Psychiatric: Orientation: alert and oriented x 3 Affect: + anxious affect Results & Data Results & Data ([facility]) Vital Signs (Past 12 Hours) Vital Signs Temp Pulse Resp BP Pulse Ox 06/13/21 07:47 36.7 C 62 12 147/72 H 97
[2021-06-13] MEDS: QUEtiapine FUMARATE 25 MG TABLET PO SCH (19:59)
[2021-06-14] MEDS: ENOXAPARIN INJ 40 MG/0.4 ML SYR SQ SCH (08:58)
[2021-06-14] MEDS: ROSUVASTATIN CALCIUM 20 MG TAB PO SCH (08:59)
[2021-06-14] MEDS: METOPROLOL SUCC 25MG EXT REL TAB PO SCH (08:59)
--- NOTE | 2021-06-14 09:32 | Discharge Summary ---
Date of Service June 14, 2021 Admission HPI Per Admitting Provider History obtained from patient, family, and records. Patient is a fair historian. Medical history significant for hypertension, hyperlipidemia, ductal carcinoma in situ, right breast status post recent surgery, osteoporosis. Patient has not been well since last month. Some stress related to elective right breast surgery at [facility] done before . Appetite not too good. Patient denies headache, chest pain, S OB. Admits to anxiety about breast cancer diagnosis. Not sleeping a lot. Denies depression/suicidality. Family noticed patient to be talking about things not making sense from time to time before procedure. Outpatient Rx for a urinary tract infection. After elective right breast surgery, patient evaluated at [facility] ER about 2 weeks ago for agitation, confusion. Patient with thoughts about being processed by the devil as per son. Patient subsequently discharged from the ER. Symptoms could be from some stress related to breast cancer diagnosis/procedure as per patient PCP as per son during last visit last week. Trazodone prescribed at night to help with sleep. Patient family noted increasing confusion, patient stopping in the middle of her sentences when asked questions. Patient taking down a lot of notes on a paper pad at home which is kind of unusual as per family. Urine also noted to have a strong smell by patient yesterday. No fever, no chills, no abdominal pain. Patient given ceftriaxone at the ER for UTI. 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 Admission Exam Per Admitting Provider �Exam:�� GENERAL: Slightly uncomfortable, slightly anxious, incessant note-taking during encounter, struggles to complete answers to questions, no respiratory distress SKIN: Normal color, warm HEENT: Bespectacled, [place] palpebral conjunctivae, no ptosis, dry buccal mucosa NECK : Supple, no tenderness CHEST : CTA, no tenderness HEART : RRR, no obvious murmurs ABDOMEN: Some distention, nontender EXTREMITIES : No LE swelling/tenderness, no other conspicuous deformities noted NEUROLOGIC : Coherent, no facial asymmetry, slow to respond to some questions/some difficulty finishing sentences, gait� and stance not assessed Principal Diagnosis Delirium UTI - treated ROBERT - resolved Discharge Exam Gen: WD/WN, F, standing in roon, anxious, NAD, A&O x3 to basics HEENT: Normocephalic, atraumatic, conjunctivae moist, sclerae anicteric, mucous membranes moist. Lung: Clear to Auscultation bilaterally, no wheezes/rales/rhonchi Heart: Regular rate, regular rhythm, no murmurs, rubs, or gallops Abdomen: Soft, NT, ND +BS x 4 Extremities: No edema Skin: Warm, no rash, negative turgor. Discharge Data Allergies Allergy/AdvReac Type Severity Reaction Status Date / Time No Known Allergies Allergy Verified 06/03/21 18:44 Consultations 06/03/21 22:10 ED Decision to Admit Stat 06/04/21 00:41 Consult Psychiatry Routine 06/06/21 00:12 Consult Neurology Routine Ordered Studies Chest X-Ray 06/03/21 19:52 XR chest 1V portable CLINICAL HISTORY: ams TECHNIQUE: Single frontal radiograph of the chest was obtained. Comparison: None available at the time of this dictation. FINDINGS: No lines and tubes are seen. The cardiomediastinal silhouette is normal. The lungs are clear. No evidence of pleural effusion or pneumothorax. IMPRESSION: No acute chest disease. ACT 112: Negative or not required by law. Electronically signed by: Armando Devi M.D. 06/04/2021 8:[address] 06/03/21 19:52 CT head/brain wo con CLINICAL HISTORY: ams COMPARISON STUDY: No previous studies for comparison. CT DOSE: 614.27 mGy.cm TECHNIQUE: Standard CT of the Brain was performed without IV contrast. A dose lowering technique was utilized adhering to the principles of ALARA. FINDINGS: Extraaxial space: There is no evidence for subdural hematoma. There are no extra-axial fluid collections. Ventricles and cisterns: The ventricles are normal in size and configuration. There is no evidence for midline shift or mass effect. Parenchyma: There is no subarachnoid or intraparenchymal hemorrhage. There is no evidence for an acute infarct or cerebral edema. There is mild cerebral cortical atrophy and decreased attenuation in the periventricular white matter representing remote small vessel disease. There are no gross mass lesions. Osseous structures: There is no evidence for an acute fracture. The visualized paranasal sinuses are clear. The mastoid air cells are clear bilaterally. Soft tissues: There is no evidence for focal soft tissue swelling. IMPRESSION: No acute intracerebral pathology. Mild cerebral cortical atrophy and remote small vessel disease. ACT 112: Negative or not required by law. Electronically signed by: Fredy Nesbitt M.D. 06/04/2021 6:49 AM Brain MRI 06/04/21 01:11 MR brain wo/w con CLINICAL HISTORY: behavioral change. Recent lumpectomy. Altered mental status and anxiety for possible metastatic disease. COMPARISON STUDY: CT brain from 06/03/2021 TECHNIQUE: Multiplanar multisequence images of the brain were performed before and after Gadavist, 6 mL of IV contrast. Diffusion weighted imaging and ADC mapping was also performed. FINDINGS: Extra-axial space: There is no evidence for a subdural hematoma, There are no extra-axial fluid collections. Ventricles and cisterns: The ventricles are normal in size and configuration. There is no evidence for midline shift or mass effect. Parenchyma: On noncontrast images, there is no evidence for an acute hemorrhage or infarct. No acute diffusion abnormalities are noted on diffusion weighted imaging or ADC mapping. There is normal adams-white differentiation. There is mild cerebral cortical atrophy present. There is bright signal seen on FLAIR weighted sequences within the centrum semiovale and periventricular white matter characteristic of remote small vessel disease. The sulci and gyri appear normal without effacement. The midline structures are unremarkable. The posterior fossa structures appear normal. On postcontrast images, there is no evidence for enhancing mass lesion. Osseous structures: The paranasal sinuses are well aerated. The mastoid air cells are well aerated. Soft tissues: No focal soft tissue abnormalities are identified. IMPRESSION: No acute intracranial abnormalities. Mild cerebral cortical atrophy and remote small vessel disease are present. ACT 112: Negative or not required by law. Electronically signed by: Fredy Nesbitt M.D. 06/04/2021 8:33 AM Diabetes Follow up A1C 6.2 Hospital Course (1) Acute metabolic encephalopathy: This is an 80-year-old female with past medical history of HTN, HLD, history of right breast cancer status post surgery, osteoporosis presented to due to feeling unwell x 1month. She did recently undergo elective right breast surgery at [facility] before . She did have overall stress and anxiety related to breast cancer diagnosis and insomnia. After elective breast surgery pt evaluated at [facility] due to agitation and confusion. She was subsequently discharged from hospital. Her PCP placed her on Trazodone to help with sleep. She was found to have a UTI with urine culture positive for klebsiella and citrobacter. Her blood cultures were negative. She completed a course of antibiotics. She did have an ROBERT which resolved with fluids. Neurology saw patient and MRI was negative for acute findings. They are recommending follow up as outpatient to eval for possible lewey body dementia. Psychiatry was consulted for delirium/hallucinations. Her trazodone was stopped and she was transitioned to seroquel at night which seemed to help. She remains anxious but overall encephalopathy has resolved. If anxiety continues psychiatry recommended to trial seroquel at 25mg at HS; however pt was hesistant due to it causing some lethargy. There was also consideration to possibly start SSRI in future if anxiety remains and issue. On day of discharge she was medically stable and ready for discharge. It is felt that patient delirium was likely multifactorial in setting of UTI, ROBERT, recent surgery, acute stress reaction, and recent anesthesia. She was alert and oriented and ambulating independently. She remains anxious. Her vital signs were stable and she was tolerating regular diet. (2) Acute UTI: (3) ROBERT (acute kidney injury): (4) Breast cancer: (5) DVT prophylaxis: Total Time Total Time Spent Total Time Spent (In Minutes): 60 Total Time Includes: Examination of the Patient, Discharge Planning, Medication Reconciliation, Communication With Other Providers and Other Discharge Plan Discharge Items Patient Disposition: Personal Residential Reason For Visit: confusion Discharge Diagnosis: Delirium UTI - treated ROBERT - resolved Condition on Discharge: Fair Activity: Resume your previous activity Bathing: No limitations Weightbearing: Full weightbearing Non-emergency contact: Primary Care Provider Call non-emergency contact if: you have any medication questions, your symptoms worsen, your pain is not controlled, your pain is worsening, your pain is unusual for you, your pain is concerning for you and you have a fever Follow-up/Referrals: Cecile Vega [Primary Care Provider] - Diet: Heart Healthy Addtl Attending Provider Instructions: RECOMMENDATIONS FOR FOLLOW-UP: Please follow up with provider at [facility]. Recommend follow up with [facility] Neurology to evaluate for further dementia. Continue all medications as prescribed. Recommend close follow up with psychiatry as outpatient. Recommend CBC and BMP in 3 days. Avoid anti inflammatories including advil, ibuprofen, aleve, motrin, naproxen. Encourage to stay well hydrated. You were diagnosed with early onset diabetes. Your A1C was 6.2. Recommend repeat A1C in 6 months. Given your current age this is acceptable and does not require treatment. OTHER INSTRUCTIONS: Seek medical attention if you have: * temperature above 101 * chest pain or trouble breathing * abdominal pain, nausea, vomiting * diarrhea, dark stools or bloody stools * any unanswered questions or concerns Call 911 if symptoms are severe. Please take good care of yourself. It has been a pleasure taking care of you. Please take care of yourself. If you have any questions regarding your recent hospitalization please contact [facility] and request [facility] Hospitalist @ [phone]. Varsha Olvera PA-C Pending Studies at Discharge: No Stand-Alone Forms: My [facility], Smoking Cessation Skilled Items Patient informed of condition?: Yes DNR: No Discharge Level of Care: Other Communicable Disease: No Discharge Prognosis: Stable Lines: None Urinary Catheter: No Medications and DC Order Prescriptions: New metoprolol succinate 25 mg Tablet Extended Release 24 Hr 25 mg PO BID Qty: 60 RF: 0 quetiapine 25 mg Tablet 12.5 mg PO HS Qty: 30 RF: 0 Continued calcium carbonate [Tums] 200 mg calcium (500 mg) Tablet,Chewable 200 mg PO DIRECTED PRN (Reason: HEARTBURN/INDIGESTION) Qty: 10 RF: 0 raloxifene 60 mg tablet 60 mg PO DAILY Qty: 30 RF: 0 rosuvastatin 40 mg tablet 40 mg PO DAILY Qty: 30 RF: 0 Discontinued trazodone 50 mg tablet 50 mg PO HS RF: 0 metoprolol succinate 25 mg tablet extended release 24 hr 25 mg PO DAILY RF: 0 Discharge Orders: Discharge Order (Routine); Ordered 06/14/21 Ordered By: Varsha Muniz/Other Patient Handouts: A1C Admission Data Admit Date/Time: 06/03/21 23:46 Attending Provider: Perez Goddard Admit Provider: Rojelio Schneider Primary Care Provider: Cecile Vega Other Providers: Rojelio Schneider ; Amber Merritt ; Tiffany Rivas ; Susana Carlson ; Franklin Lewis ; Kathrin Hawkins ; Leidy Mohamud ; Varsha Olvera Other Interventions: Discharge Summary Assessment (RN) Last Done: 06/14/21 10:43 Supervising Physician Co-Signing Physician Notes I have seen and examined the patient and have discussed the case with the provider above. I agree with the assessment and plan as stated. 80-year-old female with metabolic encephalopathy 2/2 UTI which is all resolved. She is being discharged to personal intermediate today. Denies any issues today. She appears to be anxious about almost everything. Discussed with the psychiatry while inpatient, recommended increasing the dose and Seroquel, patient denied. Appears to be mentating at her baseline. My physical exam reflecs that above. Consider outpatient initiation of an SSRI.
== END 2021-06-14 10:58 | disposition home or self-care (01) | DRG 682 ==
LOC: ED 14:16 → EDINP 23:46 → SUATTDRO 23:46 → EDINP 06-04 00:40 → 2N 06-04 14:59 → 3N 06-09 19:01
DX: B96.89 Other specified bacterial agents as the cause of diseases classified elsewhere; F43.20 Adjustment disorder, unspecified; G93.41 Metabolic encephalopathy; I10 Essential (primary) hypertension; R73.9 Hyperglycemia, unspecified; E87.6 Hypokalemia; Z85.3 Personal history of malignant neoplasm of breast; E78.5 Hyperlipidemia, unspecified; C50.919 Malignant neoplasm of unspecified site of unspecified female breast; N17.9 Acute kidney failure, unspecified; B96.1 Klebsiella pneumoniae [K. pneumoniae] as the cause of diseases classified elsewhere; E86.0 Dehydration; N39.0 Urinary tract infection, site not specified

== ENCOUNTER 2021-06-19 08:42 | Inpatient (IN) ==
--- NOTE | 2021-06-19 08:55 | Emergency Department Note ---
Impression & Plan Encephalopathy, Acute UTI, Hypokalemia, Dehydration ED Provider Note NAME: ZOIE PANCHAL AGE: 80 SEX: F ARRIVES VIA: Ambulance INFORMANT: Patient ED PROVIDER(S): Pako Cisse MD CHIEF COMPLAINT: Confusion. PLAN: Disposition: Admit MEDICAL DECISION MAKING: The patient is a pleasant 80-year-old woman with a past medical history of hypertension, hyperlipidemia, right breast cancer status post recent surgery, osteoporosis who presents to the emergency department from [facility] for generalized weakness and noncompliance with medications though details are unclear as the patient is a poor historian. The patient presents to the ED in the setting of recent mission from 06/03-06/14 where she was admitted for worsening confusion considered to be related to metabolic encephalopathy to be multifactorial secondary to UTI, ROBERT, recent surgery, stress reaction and recent anesthesia. She had a negative MRI of her brain. Neurology and psychiatry were consulted. The possibility of Lewy body dementia. She had been on trazodone for sleep and this was stopped and transition to Seroquel which did seem to help her symptoms. Psychiatry had recommended Seroquel at night but the patient was hesitant to do this. SSRI in the future was considered. On arrival the patient is anxious appearing but no acute distress, afebrile stable vital signs. She is a poor historian unable to articulate why she is in the emergency department. She has no focal neurologic deficits and is moving all extremities equally. WBC, H/H and platelets within normal limits. Chemistry without metabolic acidosis. Initial lactate 2.2 which improved to 1.9 following IV fluid hydration. Potassium 3.3 and electrolytes otherwise without significant abno rmality. LFTs without significant abnormality. Troponin negative/undetectable. Procalcitonin undetectable. UA is suspicious for infection. Following blood cultures patient was treated with IV ceftriaxone. Drug screen was unremarkable. COVID-19, RNA, NAAT test was negative. CT of the head negative for acute process. Given the patient's continued mental status changes which are of unclear etiology reasonable to admit the patient for further management. Payal Vazquez PAC, with Dr. Viji Moe hospitalist who will evaluate the patient for admission. Triage Nursing notes reviewed and agree them. Prior medical records reviewed Vital Signs: reviewed and remarkable for no significant abnormalities Differential diagnosis: Infection, dehydration, metabolic abnormality, hypo/hyperglycemia, electrolyte disturbance, anemia, hypoxia, cardiac sources, intracerebral event, toxicologic, neurologic, as well as other pathologies. ER treatment provided: See below. Diagnostics interpreted by me: ECG: NSR, 91 bpm, no ectopy, nonspecific ST and TWA, no overt ST elevation or depression. Cardiac Monitoring: An order for continuous cardiac monitoring was placed and demonstrated NSR, 91 bpm, no ectopy. Laboratory studies: See below Imaging studies: See below Consultation(s): Payal Vazquez, with Dr. Viji Moe hospitalist HPI: The patient is a pleasant 80-year-old woman with a past medical history of hypertension, hyperlipidemia, right breast cancer status post recent surgery, osteoporosis who presents to the emergency department from [facility] for generalized weakness and noncompliance with medications though details are unclear as the patient is a poor historian. The patient presents to the ED in the setting of recent mission from 06/03-06/14 where she was admitted for worsening confusion considered to be related to metabolic encephalopathy to be multifactorial secondary to UTI, ROBERT, recent surgery, stress reaction and recent anesthesia. She had a negative MRI of her brain. Neurology and psychiatry were consulted. The possibility of Lewy body dementia. She had been on trazodone for sleep and this was stopped and transition to Seroquel which did seem to help her symptoms. Psychiatry had recommended Seroquel at night but the patient was hesitant to do this. SSRI in the future was considered. ROS: See above HPI for pertinent positives & negatives. A total of 10 systems reviewed and were otherwise negative. PAST MEDICAL HISTORY:See Below PAST SURGICAL HISTORY:See Below FAMILY HISTORY:See Below SOCIAL HISTORY:See Below HOME MEDICATIONS:See Below ALLERGIES:See Below VITALS:See Below PHYSICAL EXAMINATION: GENERAL: Awake, alert, anxious-appearing, in no distress HENT: Normocephalic, atraumatic. Oropharynx with dry mucous membranes and otherwise unremarkable. EYES: Normal conjunctiva. Sclera non-icteric. NECK: Supple. No nuchal rigidity. FROM. No JVD. RESPIRATORY: Clear to auscultation. CARDIAC: Regular rate, normal rhythm. Extremities warm and well perfused. Pulses equal. ABDOMEN: Soft, non-distended. No tenderness to palpation. No rebound or guarding. No masses. RECTAL: Deferred. MUSCULOSKELETAL: Chest examination reveals no tenderness. The back is symmetrical on inspection without obvious abnormality. There is no CVA tenderness to palpation. No joint edema. LOWER EXTREMITIES: Calves are equal size bilaterally and non-tender. No edema. No discoloration. NEURO: No focal sensory or motor deficits noted. 5/5 strength and SILT x 4 extremities. SKIN: No rash or jaundice noted. 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 Required: No Beliefs That Will Affect Care: None marital status: Current Living Situation: Personal Care Facility Feels Safe at Home: Yes Assistive Devices: Glasses Allergies Allergies Allergy/AdvReac Type Severity Reaction Status Date / Time No Known Allergies Allergy Verified 06/03/21 18:44 Home Meds Home Medications Medication Instructions Recorded Confirmed buspirone 7.5 mg tablet 7.5 mg PO TID 06/19/21 06/19/21 raloxifene 60 mg tablet 60 mg PO QAM 06/19/21 06/19/21 rosuvastatin 40 mg tablet 40 mg PO QAM 06/19/21 06/19/21 Previous Rx's Medication Instructions Recorded calcium carbonate 200 mg calcium 200 mg PO DIRECTED PRN #10 tab 06/14/21 (500 mg) chewable tablet (Tums) metoprolol succinate 25 mg 25 mg PO BID #60 tab 06/14/21 tablet,extended release 24 hr quetiapine 25 mg tablet 12.5 mg PO HS #30 tab 06/14/21 Results & Data (ED) Vital Signs Vital Signs - 24 hr 06/19/21 08:53 06/19/21 09:19 06/19/21 10:50 Temperature 36.5 C Temperature Source Oral Pulse Rate 90 Pulse Rate [Finger] 103 H Pulse Rhythm [Finger] Regular Pulse Strength [Finger] Normal Respiratory Rate 20 24 Respiratory Effort / Characteristics Non-Labored Respiratory Depth Normal Respiratory Pattern Regular Blood Pressure 166/69 H Blood Pressure [Right Arm] 172/81 H Blood Pressure Mean 101 Blood Pressure Mean [Right Arm] 111 Blood Pressure Position Lying Blood Pressure Position [Right Arm] Sitting Pulse Oximetry 97 99 97 Oxygen Delivery Method Room Air Room Air Sepsis Recent Fever Within 48 Hours No Sepsis New/Unexplained Change in Mental Status Yes Sepsis Action Taken by Nursing No Action Required 06/19/21 12:03 Temperature Temperature Source Pulse Rate Pulse Rate [Finger] 118 H Pulse Rhythm [Finger] Pulse Strength [Finger] Respiratory Rate 22 Respiratory Effort / Characteristics Respiratory Depth Respiratory Pattern Blood Pressure Blood Pressure [Right Arm] 177/80 H Blood Pressure Mean Blood Pressure Mean [Right Arm] 112 Blood Pressure Position Blood Pressure Position [Right Arm] Lying Pulse Oximetry 94 Oxygen Delivery Method Room Air Sepsis Recent Fever Within 48 Hours Sepsis New/Unexplained Change in Mental Status Sepsis Action Taken by Nursing Laboratory Data Attestation: I reviewed the patient's lab results. Result diagrams: 06/19/21 08:57 06/19/21 08:57 Lab Results 06/19/21 06/19/21 06/19/21 Range/Units 08:57 08:57 08:57 WBC 7.07 (4.8-10.8) K/uL RBC 4.59 (4.2-5.4) M/uL Hgb 13.5 (12.0-16.0) g/dL Hct 40.4 (37-47) % MCV 88.0 (80-100) fL MCH 29.4 (25-34) pg MCHC 33.4 (32-36) g/dL RDW Std Deviation 47.5 H (36.4-46.3) fL RDW Coeff of Fozia 14.7 H (11.5-14.5) % Plt Count 274 (130-400) K/uL MPV 10.5 H (7.4-10.4) fL Immature Gran % (Auto) 0.1 % Neut % (Auto) 77.5 % Lymph % (Auto) 13.6 % [place] % (Auto) 8.3 % Eos % (Auto) 0.4 % Baso % (Auto) 0.1 % Neut # (Auto) 5.47 (1.4-6.5) K/uL Lymph # (Auto) 0.96 L (1.2-3.4) K/uL [place] # (Auto) 0.59 (0.11-0.59) K/uL Eos # (Auto) 0.03 (0-0.5) K/uL Baso # (Auto) 0.01 (0-0.2) K/uL Immature Gran # (Auto) 0.01 (0.00-0.02) K/uL Sodium 140 (136-145) mmol/L Potassium 3.3 L (3.5-5.1) mmol/L Chloride 104 (98-107) mmol/L Carbon Dioxide 29 (21-32) mmol/L Anion Gap 7.0 (3-11) BUN 29 H (7-18) mg/dl Creatinine 1.01 (0.6-1.2) mg/dl Est Cr Clr Drug Dosing 43.5 ml/min Est GFR ( Amer) 60.9 ml/min Est GFR (Non-Af Amer) 52.5 ml/min BUN/Creatinine Ratio 28.9 H (10-20) Glucose 128 H (70-99) mg/dl Lactate (0.4-2.0) mmol/L Calcium 9.5 (8.5-10.1) mg/dl Phosphorus 2.3 L (2.5-4.9) mg/dl Magnesium 2.5 H (1.8-2.4) mg/dl Total Bilirubin 0.7 (0.2-1) mg/dl AST 42 H (15-37) U/L ALT 56 (12-78) Alkaline Phosphatase 62 (45-117) U/L Troponin I < 0.015 (0-0.045) ng/ml Total Protein 7.2 (6.4-8.2) gm/dl Albumin 3.8 (3.4-5.0) gm/dl Globulin 3.4 (2.5-4.0) gm/dl Albumin/Globulin Ratio 1.1 (0.9-2) Lipase 167 (73-393) U/L Procalcitonin < 0.05 (0-0.5) ng/ml TSH 2.920 (0.300-4.500) uIu/ml Urine Color Urine Appearance (Clear) Urine pH (4.5-7.5) Ur Specific [place] (1.000-1.030) Urine Protein (Negative) Urine Glucose (UA) (Negative) Urine Ketones (Negative) Urine Blood (Negative) Urine Nitrite (Negative) Urine Bilirubin (Negative) Urine Urobilinogen (Negative) Ur Leukocyte Esterase (Negative) Urine WBC (Auto) (0-5) /hpf Urine RBC (Auto) (0-4) /hpf U Hyaline Cast (Auto) (0-5) /lpf U Epithel Cells (Auto) (0-5) /lpf Urine Bacteria (Auto) (Negative) Urine Opiates Screen (Neg) Ur Methadone, Qual (Neg) Urine Barbiturates (Neg) Ur Phencyclidine (PCP) (Neg) U Amphetamin/Meth Scrn (Neg) MDMA (Ecstasy) Screen (Neg) U Benzodiazepines Scrn (Neg) Ur Cocaine Metabolite (Neg) U Marijuana (THC) Screen (Neg) Ethyl Alcohol mg/dL (0-3) mg/dl 06/19/21 06/19/21 06/19/21 Range/Units 09:53 10:25 10:25 WBC (4.8-10.8) K/uL RBC (4.2-5.4) M/uL Hgb (12.0-16.0) g/dL Hct (37-47) % MCV (80-100) fL MCH (25-34) pg MCHC (32-36) g/dL RDW Std Deviation (36.4-46.3) fL RDW Coeff of Fozia (11.5-14.5) % Plt Count (130-400) K/uL MPV (7.4-10.4) fL Immature Gran % (Auto) % Neut % (Auto) % Lymph % (Auto) % [place] % (Auto) % Eos % (Auto) % Baso % (Auto) % Neut # (Auto) (1.4-6.5) K/uL Lymph # (Auto) (1.2-3.4) K/uL [place] # (Auto) (0.11-0.59) K/uL Eos # (Auto) (0-0.5) K/uL Baso # (Auto) (0-0.2) K/uL Immature Gran # (Auto) (0.00-0.02) K/uL Sodium (136-145) mmol/L Potassium (3.5-5.1) mmol/L Chloride (98-107) mmol/L Carbon Dioxide (21-32) mmol/L Anion Gap (3-11) BUN (7-18) mg/dl Creatinine (0.6-1.2) mg/dl Est Cr Clr Drug Dosing ml/min Est GFR ( Amer) ml/min Est GFR (Non-Af Amer) ml/min BUN/Creatinine Ratio (10-20) Glucose (70-99) mg/dl Lactate (0.4-2.0) mmol/L Calcium (8.5-10.1) mg/dl Phosphorus (2.5-4.9) mg/dl Magnesium (1.8-2.4) mg/dl Total Bilirubin (0.2-1) mg/dl AST (15-37) U/L ALT (12-78) Alkaline Phosphatase (45-117) U/L Troponin I (0-0.045) ng/ml Total Protein (6.4-8.2) gm/dl Albumin (3.4-5.0) gm/dl Globulin (2.5-4.0) gm/dl Albumin/Globulin Ratio (0.9-2) Lipase (73-393) U/L Procalcitonin (0-0.5) ng/ml TSH (0.300-4.500) uIu/ml Urine Color Yellow Urine Appearance Clear (Clear) Urine pH 6.5 (4.5-7.5) Ur Specific [place] 1.014 (1.000-1.030) Urine Protein 1+ H (Negative) Urine Glucose (UA) Negative (Negative) Urine Ketones Trace H (Negative) Urine Blood 2+ H (Negative) Urine Nitrite Negative (Negative) Urine Bilirubin Negative (Negative) Urine Urobilinogen Negative (Negative) Ur Leukocyte Esterase Negative (Negative) Urine WBC (Auto) 1-5 (0-5) /hpf Urine RBC (Auto) 0-4 (0-4) /hpf U Hyaline Cast (Auto) 1-5 (0-5) /lpf U Epithel Cells (Auto) 10-20 H (0-5) /lpf Urine Bacteria (Auto) 4+ H (Negative) Urine Opiates Screen Neg (Neg) Ur Methadone, Qual Neg (Neg) Urine Barbiturates Neg (Neg) Ur Phencyclidine (PCP) Neg (Neg) U Amphetamin/Meth Scrn Neg (Neg) MDMA (Ecstasy) Screen Neg (Neg) U Benzodiazepines Scrn Neg (Neg) Ur Cocaine Metabolite Neg (Neg) U Marijuana (THC) Screen Neg (Neg) Ethyl Alcohol mg/dL < 3.0 (0-3) mg/dl 06/19/21 Range/Units 11:33 WBC (4.8-10.8) K/uL RBC (4.2-5.4) M/uL Hgb (12.0-16.0) g/dL Hct (37-47) % MCV (80-100) fL MCH (25-34) pg MCHC (32-36) g/dL RDW Std Deviation (36.4-46.3) fL RDW Coeff of Fozia (11.5-14.5) % Plt Count (130-400) K/uL MPV (7.4-10.4) fL Immature Gran % (Auto) % Neut % (Auto) % Lymph % (Auto) % [place] % (Auto) % Eos % (Auto) % Baso % (Auto) % Neut # (Auto) (1.4-6.5) K/uL Lymph # (Auto) (1.2-3.4) K/uL [place] # (Auto) (0.11-0.59) K/uL Eos # (Auto) (0-0.5) K/uL Baso # (Auto) (0-0.2) K/uL Immature Gran # (Auto) (0.00-0.02) K/uL Sodium (136-145) mmol/L Potassium (3.5-5.1) mmol/L Chloride (98-107) mmol/L Carbon Dioxide (21-32) mmol/L Anion Gap (3-11) BUN (7-18) mg/dl Creatinine (0.6-1.2) mg/dl Est Cr Clr Drug Dosing ml/min Est GFR ( Amer) ml/min Est GFR (Non-Af Amer) ml/min BUN/Creatinine Ratio (10-20) Glucose (70-99) mg/dl Lactate 2.2 H* (0.4-2.0) mmol/L Calcium (8.5-10.1) mg/dl Phosphorus (2.5-4.9) mg/dl Magnesium (1.8-2.4) mg/dl Total Bilirubin (0.2-1) mg/dl AST (15-37) U/L ALT (12-78) Alkaline Phosphatase (45-117) U/L Troponin I (0-0.045) ng/ml Total Protein (6.4-8.2) gm/dl Albumin (3.4-5.0) gm/dl Globulin (2.5-4.0) gm/dl Albumin/Globulin Ratio (0.9-2) Lipase (73-393) U/L Procalcitonin (0-0.5) ng/ml TSH (0.300-4.500) uIu/ml Urine Color Urine Appearance (Clear) Urine pH (4.5-7.5) Ur Specific [place] (1.000-1.030) Urine Protein (Negative) Urine Glucose (UA) (Negative) Urine Ketones (Negative) Urine Blood (Negative) Urine Nitrite (Negative) Urine Bilirubin (Negative) Urine Urobilinogen (Negative) Ur Leukocyte Esterase (Negative) Urine WBC (Auto) (0-5) /hpf Urine RBC (Auto) (0-4) /hpf U Hyaline Cast (Auto) (0-5) /lpf U Epithel Cells (Auto) (0-5) /lpf Urine Bacteria (Auto) (Negative) Urine Opiates Screen (Neg) Ur Methadone, Qual (Neg) Urine Barbiturates (Neg) Ur Phencyclidine (PCP) (Neg) U Amphetamin/Meth Scrn (Neg) MDMA (Ecstasy) Screen (Neg) U Benzodiazepines Scrn (Neg) Ur Cocaine Metabolite (Neg) U Marijuana (THC) Screen (Neg) Ethyl Alcohol mg/dL (0-3) mg/dl Administered Medications Buspirone HCl (Buspirone 7.5 Mg Tab) 7.5 mg PO TID [facility], [facility]1983 Stop: 07/19/21 13:59 Last Admin: 06/19/21 15:00 Dose: Not Given Documented by: [id number] Heparin Sodium (Porcine) (Heparin Sod 5,000 Unit/0.5 Ml Vial) 5,000 units SQ Q8 [facility], 1928–1983 Stop: 07/19/21 15:29 Last Admin: 06/19/21 23:35 Dose: Not Given Documented by: [id number] Admin: 06/19/21 23:34 Dose: Not Given Documented by: [id number] Quetiapine Fumarate (Quetiapine Fumarate 25 Mg Tablet) 12.5 mg PO HS TRISTEN Stop: 07/19/21 20:59 Last Admin: 06/19/21 21:00 Dose: 12.5 mg Documented by: [id number] Discontinued Medications Haloperidol (Haloperidol 2 Mg/1 Ml Udp) 2 mg PO NOW ONE Stop: 06/19/21 14:20 Last Admin: 06/19/21 14:59 Dose: 2 mg Documented by: [id number] Sodium Chloride (Nss 1000ml) 1,000 mls @ 999 mls/hr IV .Q1H1M ONE Stop: 06/19/21 10:12 Last Infusion: 06/19/21 11:16 Dose: 0 mls/hr Documented by: [id number] Admin: 06/19/21 09:27 Dose: 999 mls/hr Documented by: [id number] Potassium Chloride (K Ari / Wtr) 10 meq in 100 mls @ 100 mls/hr IV Q1H TRISTEN; Protocol Stop: 06/19/21 12:44 Last Infusion: 06/19/21 14:23 Dose: 0 mls/hr Documented by: [id number] Admin: 06/19/21 12:45 Dose: 100 mls/hr Documented by: [id number] Infusion: 06/19/21 12:45 Dose: 0 mls/hr Documented by: [id number] Admin: 06/19/21 11:47 Dose: 100 mls/hr Documented by: [id number] Ceftriaxone Sodium (Rocephin) 2,000 mg in 70 mls @ 140 mls/hr IV NOW STA Stop: 06/19/21 11:24 Last Infusion: 06/19/21 11:47 Dose: 0 mls/hr Documented by: [id number] Admin: 06/19/21 11:27 Dose: 140 mls/hr Documented by: [id number] Lorazepam (Ativan) 1 mg in 2 mls @ 2 mls/min IV NOW STA Stop: 06/19/21 17:38 Last Admin: 06/19/21 17:47 Dose: 2 mls/min Documented by: [id number] Lorazepam (Lorazepam 2 Mg/4 Ml Vial) Confirm Administered Dose 2 mg .ROUTE .STK- MED ONE Stop: 06/19/21 17:43 Last Admin: 06/19/21 17:46 Dose: Not Given Documented by: [id number] Potassium Chloride (Potassium Chloride Crtab 20 Meq Tabcr) 40 meq PO NOW STA Stop: 06/19/21 13:00 Last Admin: 06/19/21 15:03 Dose: Not Given Documented by: [id number] Imaging Data Radiologist's Impression: Chest X-Ray 06/19/21 09:13 XR chest 1V portable CLINICAL HISTORY: Chest Pain. COMPARISON STUDY: 06/03/2021 TECHNIQUE: 1 view of the chest FINDINGS: Single frontal view of the chest demonstrates the cardiomediastinal silhouette to be within normal limits. The lungs are clear of alveolar opacities. There is no evidence for pleural effusion. There is no evidence for vascular congestion. There is no acute osseous pathology. IMPRESSION: No acute cardiopulmonary disease. ACT 112: Negative or not required by law. Electronically signed by: Fredy Nesbitt M.D. 06/19/2021 9:[address] 06/19/21 09:14 CT head/brain wo con CLINICAL HISTORY: confusion Technique: Contiguous axial CT images of the head were acquired from the base of the skull to the vertex without intravenous contrast administration. Images were viewed in brain, subdural and bone windows. Automated dose lowering techniques and/or adjustment according to patient size were utilized for this exam. Comparison: Comparison is made to CT head 06/03/2021 Findings: The ventricles, basal cisterns, and cerebral sulci are normal. There is no acute intracranial hemorrhage or evidence of acute territorial infarction. Neither mass effect, shift of the midline structures, nor abnormal extra-axial fluid collections are shown. Imaged portions of the paranasal sinuses and mastoid air cells are clear. The orbits appear normal. There are no acute fractures of the calvaria or scalp swelling. Impression: No acute intracranial hemorrhage, no evidence of acute territorial infarction or other acute intracranial disease process. ACT 112: Negative or not required by law. Electronically signed by: Armando Devi M.D. 06/19/2021 9:49 AM Discharge Plan Visit Data Chief Complaint: Altered Mental Status Stated Complaint: EMOTIONAL DISTRESS ED Provider: Pako Cisse Discharge Problem: Encephalopathy, Acute UTI, Hypokalemia, Dehydration Discharge Instructions Interventions: ED Discharge Assessment Last Done: 06/19/21 15:03
[2021-06-19] MEDS ORDERED: SODIUM CHLORIDE 0.9% 1000ML 1,000 ML IV ONE (09:12)
--- NOTE | 2021-06-19 09:25 | XRay Report ---
XR chest 1V portable CLINICAL HISTORY: Chest Pain. COMPARISON STUDY: 06/03/2021 TECHNIQUE: 1 view of the chest FINDINGS: Single frontal view of the chest demonstrates the cardiomediastinal silhouette to be within normal li mits. The lungs are clear of alveolar opacities. There is no evidence for pleural effusion. There is no evidence for vascular congestion. There is no acute osseous pathology. IMPRESSION: No acute cardiopulmonary disease. ACT 112: Negative or not required by law. Electronically signed by: Fredy Nesbitt M.D. 06/19/2021 9:24 AM
[2021-06-19 09:31] LABS: Basophils # (auto) 0.01 K/uL (0-0.2); Basophils % (auto) 0.1 %; Eosinophils # (auto) 0.03 K/uL (0-0.5); Eosinophils % (auto) 0.4 %; Hematocrit (blood only) 40.4 % (37-47); Hemoglobin 13.5 g/dL (12.0-16.0); Immature Granulocytes # (auto) 0.01 K/uL (0.00-0.02); Immature Granulocytes % (auto) 0.1 %; Lymphocytes # (auto) 0.96 K/uL (1.2-3.4); Lymphocytes % (auto) 13.6 %; Mean Corpuscular Hemoglobin 29.4 pg (25-34); Mean Corpuscular Hgb Conc 33.4 g/dL (32-36); Mean Platelet Volume 10.5 fL (7.4-10.4); Monocytes # (auto) 0.59 K/uL (0.11-0.59); Monocytes % (auto) 8.3 %; Neutrophils # (auto) 5.47 K/uL (1.4-6.5); Neutrophils % (auto) 77.5 %; Platelet Count 274 K/uL (130-400); RDW Coefficient of Variation 14.7 % (11.5-14.5); RDW Standard Deviation 47.5 fL (36.4-46.3); Red Blood Count 4.59 M/uL (4.2-5.4); White Blood Count 7.07 K/uL (4.8-10.8)
[2021-06-19 09:43] LABS: Alanine Aminotransferase 56 (12-78); Albumin Level 3.8 gm/dl (3.4-5.0); Aspartate Aminotransferase 42 U/L (15-37); BUN Creatinine Ratio 28.9 (10-20); Blood Urea Nitrogen 29 mg/dl (7-18); Calcium 9.5 mg/dl (8.5-10.1); Carbon Dioxide 29 mmol/L (21-32); Chloride 104 mmol/L (98-107); Creatinine Clr Calc Pharmacy 43.5 ml/min; Est GFR (African American) 60.9 ml/min; Est GFR (Non-African American) 52.5 ml/min; Glucose 128 mg/dl (70-99); Lipase 167 U/L (73-393); Magnesium 2.5 mg/dl (1.8-2.4); Potassium 3.3 mmol/L (3.5-5.1); Sodium 140 mmol/L (136-145)
--- NOTE | 2021-06-19 09:50 | CT Scan Report ---
CT head/brain wo con CLINICAL HISTORY: confusion Technique: Contiguous axial CT images of the head were acquired from the base of the skull to the asa yunior without intravenous contrast administration. Images were viewed in brain, subdural and bone [facility]. Automated dose lowering techniques and/or adjustment according to patient size were utilized for this exam. Comparison: Comparison is made to CT head 06/03/2021 Findings: The ventricles, basal cisterns, and cerebral sulci are normal. There is no acute intracranial hemorrh age or evidence of acute territorial infarction. Neither mass effect, shift of the midline structures , nor abnormal extra-axial fluid collections are shown. Imaged portions of the paranasal sinuses and mastoid air cells are clear. The orbits appear normal. There are no acute fractures of the calvaria or scalp swelling. Impression: No acute intracranial hemorrhage, no evidence of acute territorial infarction or other acute intracra nial disease process. ACT 112: Negative or not required by law. Electronically signed by: Armando Devi M.D. 06/19/2021 9:49 AM
[2021-06-19 09:54] LABS: Albumin Globulin Ratio 1.1 (0.9-2); Alkaline Phosphatase 62 U/L (45-117); Bilirubin,Total 0.7 mg/dl (0.2-1); Globulin 3.4 gm/dl (2.5-4.0); Phosphorus 2.3 mg/dl (2.5-4.9); Total Protein 7.2 gm/dl (6.4-8.2); Troponin I < 0.015 ng/ml (0-0.045)
[2021-06-19 10:36] LABS: Appearance Urine Clear (Clear); Bacteria Urine Automated 4+ (Negative); Bilirubin Urine Negative (Negative); Blood Urine 2+ (Negative); Color Urine Yellow; Glucose Urine UA Negative (Negative); Ketones Urine Trace (Negative); Leukocyte Esterase Urine Negative (Negative); Nitrite Urine Negative (Negative); Protein Urine 1+ (Negative); RBC Urine Automated 0-4 /hpf (0-4); Specific Gravity Urine 1.014 (1.000-1.030); Urobilinogen Urine Negative (Negative); pH Urine 6.5 (4.5-7.5)
[2021-06-19 10:53] LABS: Amphetamines+Metham, Urine Neg (Neg); Barbiturates, Urine Neg (Neg); Benzodiazepine, Urine Neg (Neg); Cocaine, Urine Neg (Neg); MDMA (Ecstacy), Urine Neg (Neg); Methadone, Urine Neg (Neg); Opiate, Urine Neg (Neg); Phencyclidine, Urine Neg (Neg)
[2021-06-19] MEDS ORDERED: cefTRIAXone SODIUM 2,000 MG/70 ML BAG IV STA (10:55)
[2021-06-19] MEDS: POTASSIUM CHLORIDE / WTR 10 MEQ/100 ML PLCT IV SCH ×2 (11:47→12:45)
--- NOTE | 2021-06-19 12:39 | History & Physical Report ---
Date of Service June 19, 2021 Assessment & Plan (1) Acute metabolic encephalopathy: Plan: This is an 80yo F from [facility] with a PMH of HTN, HLD, history of right breast cancer status post surgery, osteoporosis who presents with generalized weakness, anxiety and medication noncompliance. Alert, disoriented. Aware of person only Has been admitted twice in the past 2 months for encephalopathy and was felt that patient delirium was likely multifactorial in setting of UTI, ROBERT, recent surgery, acute stress reaction and recent anesthesia Was also seen by psych on previous admission and trazodone was stopped and she was transitioned to Seroquel at night. Consideration of starting SSRI as out- patient. Required PRN Haldol during admission Since discharge, patient has been started on BuSpar 7.5 mg TID Per son, was doing well and at cognitive baseline over the weekend CT head without acute abnormality. VSS, no leukocytosis, UA abnormal, UDS WNL, covid negative Discussed with psychiatry - recommend PRN Haldol, holding Buspar, Seroquel HS. 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 Psych consult placed (2) Acute UTI: Plan: Abnormal UA. Started on empiric Rocephin, plan to continue. Follow urine culture (3) Hypokalemia: Plan: Initial K 3.3 - replaced Monitor with daily BMP (4) Breast cancer: Plan: S/p recent surgery with Dr. Ernst Villarreal at [facility]. Outpatient follow-up. Son reported patient is to start radiation treatments (5) HTN (hypertension): Plan: Continue metoprolol succinate (6) HLD (hyperlipidemia): Plan: Continue statin DVT Ppx: SQ heparin Code status: FULL PCP: Silvia Dispo: Observation med/surg Patient seen in collaboration with Dr. Hallman. Please see addendum. Will update sonMarco A, this evening. History of Present Illness Chief Complaint: generalized weakness, anxiety Primary Care Provider: [employer], [facility] This is an 80yo F from [facility] with a PMH of HTN, HLD, history of right breast cancer status post surgery, osteoporosis who presents with generalized weakness, anxiety and medication noncompliance. Has been admitted twice in the past 2 months for encephalopathy in the setting of UTI growing klebsiella and citrobacter and possible diagnosis of Lewy Body dementia. It was felt that patient delirium was likely multifactorial in setting of UTI, ROBERT, recent surgery, acute stress reaction and recent anesthesia. Was also seen by psych on previous admission and trazodone was stopped and she was transitioned to Seroquel at night. Since discharge, patient has been started on BuSpar 7.5 mg 3 times daily. Per son, when he visited patient over the weekend she was at cognitive baseline. Since then has become more anxious and tearful with increased urinary frequency. States "people keep asking me to manage my medication and I don't know how". Denies visual/auditory hallucinations right now. No SI/HI. Denies any hematuria. Unreliable ROS due to worsened anxiety. Poor historian at baseline. Allergies Allergy/AdvReac Type Severity Reaction Status Date / Time No Known Allergies Allergy Verified 06/03/21 18:44 Home Medications Medication Instructions Recorded Confirmed Type calcium carbonate 200 mg calcium 200 mg PO DIRECTED PRN #10 tab 06/14/21 06/19/21 Rx (500 mg) chewable tablet (Tums) metoprolol succinate 25 mg 25 mg PO BID #60 tab 06/14/21 06/19/21 Rx tablet,extended release 24 hr quetiapine 25 mg tablet 12.5 mg PO HS #30 tab 06/14/21 06/19/21 Rx buspirone 7.5 mg tablet 7.5 mg PO TID 06/19/21 06/19/21 History raloxifene 60 mg tablet 60 mg PO QAM 06/19/21 06/19/21 History rosuvastatin 40 mg tablet 40 mg PO QAM 06/19/21 06/19/21 History Past Med/Surg History Medical History (Updated 06/19/21 @ 17:32 by Ciara Lafleur PA-C) Acute hypokalemia Acute UTI Altered mental status Breast cancer Depression HLD (hyperlipidemia) HTN (hypertension) Surgical History (Updated 06/19/21 @ 17:21 by Ciara Lafleur PA-C) H/O breast surgery Social History Smoking Status: Never smoker Hx Alcohol Use: No Hx Substance Use: No Preferred Language: Mongolian Communication Ability: Effective Drainlayer Required: No Beliefs That Will Affect Care: None marital status: Current Living Situation: Personal Care Facility Feels Safe at Home: Yes Assistive Devices: Glasses Review of Systems Review of Systems: Unobtainable due to cognitive status Physical Exam Physical Exam: General Appearance: WD/WN, vitals as above, severe anxiety with crying, unable to appropriately answer questions during interview Head: normocephalic, atraumatic Eyes: normal inspection, PERRL, conjunctivae normal, anicteric sclerae ENT: external ear and nose normal, oropharynx normal Neck: normal visual inspection, trachea midline, no thyromegaly Respiratory: normal respiratory effort, lungs clear to auscultation, no wheeze, rales, rhonchi. No accessory muscle use Cardiovascular: regular rate, rhythm, no murmur, normal peripheral pulses, no BLE edema. Vessels: no JVD Chest: normal inspection of chest Abdomen/GI: normal bowel sounds, soft, nontender, no hepatosplenomegaly Extremities/Musculoskeletal: no cyanosis or clubbing, extremities motor strength 5/5 Neurologic: PERRL, EOMI, accommodation nl, no face palsy, no dysarthria, CN's II-XI intact bilaterally and moves all extremities Psychiatric: A+Ox person, anxious, tearful and shaking. "I don't know any answers to the rest of your questions! There is too much beeping." Skin: no rashes, normal color, warm/dry Results & Data Results & Data ([facility]) Vital Signs (Past 12 Hours) Vital Signs Temp Pulse Pulse Resp BP BP Pulse Ox 06/19/21 12:03 118 H 22 177/80 H 94 06/19/21 10:50 103 H 24 172/81 H 97 06/19/21 09:19 99 06/19/21 08:53 36.5 C 90 20 166/69 H 97 Laboratory Results Short CBC 06/19/21 Range/Units 08:57 WBC 7.07 (4.8-10.8) K/uL Hgb 13.5 (12.0-16.0) g/dL Hct 40.4 (37-47) % Plt Count 274 (130-400) K/uL BMP 06/19/21 08:57 Sodium 140 Potassium 3.3 L Chloride 104 Carbon Dioxide 29 BUN 29 H Creatinine 1.01 Glucose 128 H Calcium 9.5 Cardiac Enzymes 06/19/21 Range/Units 08:57 Troponin I < 0.015 (0-0.045) ng/ml Liver Function 06/19/21 Range/Units 08:57 Total Bilirubin 0.7 (0.2-1) mg/dl AST 42 H (15-37) U/L ALT 56 (12-78) Alkaline Phosphatase 62 (45-117) U/L Albumin 3.8 (3.4-5.0) gm/dl Urine 06/19/21 Range/Units 10:25 Urine Color Yellow Urine Appearance Clear (Clear) Urine pH 6.5 (4.5-7.5) Ur Specific [place] 1.014 (1.000-1.030) Urine Protein 1+ H (Negative) Urine Glucose (UA) Negative (Negative) Diagnostic Findings Chest X-Ray 06/19/21 09:13 XR chest 1V portable CLINICAL HISTORY: Chest Pain. COMPARISON STUDY: 06/03/2021 TECHNIQUE: 1 view of the chest FINDINGS: Single frontal view of the chest demonstrates the cardiomediastinal silhouette to be within normal limits. The lungs are clear of alveolar opacities. There is no evidence for pleural effusion. There is no evidence for vascular congestion. There is no acute osseous pathology. IMPRESSION: No acute cardiopulmonary disease. ACT 112: Negative or not required by law. Electronically signed by: Fredy Nesbitt M.D. 06/19/2021 9:[address] 06/19/21 09:14 CT head/brain wo con CLINICAL HISTORY: confusion Technique: Contiguous axial CT images of the head were acquired from the base of the skull to the vertex without intravenous contrast administration. Images were viewed in brain, subdural and bone windows. Automated dose lowering techniques and/or adjustment according to patient size were utilized for this exam. Comparison: Comparison is made to CT head 06/03/2021 Findings: The ventricles, basal cisterns, and cerebral sulci are normal. There is no acute intracranial hemorrhage or evidence of acute territorial infarction. Neither mass effect, shift of the midline structures, nor abnormal extra-axial fluid collections are shown. Imaged portions of the paranasal sinuses and mastoid air cells are clear. The orbits appear normal. There are no acute fractures of the calvaria or scalp swelling. Impression: No acute intracranial hemorrhage, no evidence of acute territorial infarction or other acute intracranial disease process. ACT 112: Negative or not required by law. Electronically signed by: Armando Devi M.D. 06/19/2021 9:49 AM Supervising Physician Co-Signing Physician Notes I saw this patient with the physician plumber's assistant, I participated in the history, physical, review of systems, and physical exam. I reviewed the medications with the patient and the physician plumber's assistant and helped reconcile the medications. I helped take a detailed family and social history as well. I formulated the ass essment and plan personally with the physician plumber's assistant and went over it with the patient. Physical Exam Gen-AAO x 1, Very anxious, Afebrile Head-NCAT, EOMI, PERRLA, Anicteric Sclera, No Posterior Pharyngeal Erythema Neck-Supple, No JVD, No Thyromegaly, No Masses, No LAD, No Bruits Lungs-Clear to Auscultation Bilaterally, No Rales, No Rhonchi, No Wheezing, No Crepitus Chest-No S4, +S1, +S2, No S3, No Murmurs, No Rubs, No Gallops, No Ectopy Abdomen-Soft, Bowel Sounds Present, Non Tender, Non Distended, No Hepatomegaly, No Splenomegaly, No Palpable Masses, No Rebound, No Rigidity, No Guarding Musculoskeletal-Full Range of Motion Bilaterally, No CVAT Extremities-No Cyanosis, No Clubbing, No Edema Nuero-Cranial Nerves II-XII grossly intact, Motor WNL, DTRs WNL, Strength WNL, Non Focal Psych-psychotic
[2021-06-19] MEDS ORDERED: POTASSIUM CHLORIDE CRTAB 20 MEQ TABCR PO STA (12:59)
[2021-06-19] MEDS ORDERED: busPIRone 7.5 MG TAB PO SCH (14:00)
[2021-06-19] MEDS ORDERED: HALOPERIDOL 2 MG/1 ML UDP PO ONE (14:19)
[2021-06-19] MEDS ORDERED: CALCIUM CARBONATE 500 MG CHEWABLE TAB PO PRN (15:23)
[2021-06-19] MEDS ORDERED: ACETAMINOPHEN 325 MG TAB PO PRN (15:23)
[2021-06-19] MEDS ORDERED: POLYETHYLENE (MIRALAX) 17 GM PACK PO PRN (15:23)
[2021-06-19] MEDS ORDERED: ONDANSETRON INJ 2 MG/ML 2 ML VIAL IV PRN (15:23)
[2021-06-19] MEDS ORDERED: LORazepam 1 MG/2 ML VIAL IV STA (17:37)
[2021-06-19] MEDS ORDERED: LORazepam 2 MG/4 ML VIAL ONE (17:42)
--- NOTE | 2021-06-19 17:42 | Communication Note ---
Date of Service: June 19, 2021 case reviewed earlier this pm with hospitalist service as patient known to me from previous consultation. interim progress reviewed as remained anxious during her hospital stay but rather dramatic improvement prior to discharge to facility. She had declined increase in Seroquel prior to discharge and appears to have been started on Buspar 7.5 mg TID the day after discharge from [facility] [place]. She is representing with similar symptoms and received one dose of Haldol 2 mg as previous effective for delirium. Nursing contacted me at [facility] of hospitalist service for additional recommendations as little effect this time. Test dose of 1 mg Ativan IV ordered for suspicion of agitated/manic catatonia as an atypical presentation.
[2021-06-19] MEDS: QUEtiapine FUMARATE 25 MG TABLET PO SCH (21:00)
[2021-06-19] MEDS: HEPARIN SOD 5,000 UNIT/0.5 ML VIAL SQ SCH ×2 (23:34→23:35)
[2021-06-20] MEDS: METOPROLOL SUCC 25MG EXT REL TAB PO SCH ×3 (00:43→20:24)
[2021-06-20 05:48] LABS: Hematocrit (blood only) 40.3 % (37-47); Hemoglobin 13.6 g/dL (12.0-16.0); Mean Corpuscular Hemoglobin 29.8 pg (25-34); Mean Corpuscular Hgb Conc 33.7 g/dL (32-36); Mean Corpuscular Volume 88.2 fL (80-100); Mean Platelet Volume 9.9 fL (7.4-10.4); Platelet Count 253 K/uL (130-400); RDW Coefficient of Variation 14.7 % (11.5-14.5); RDW Standard Deviation 47.1 fL (36.4-46.3); Red Blood Count 4.57 M/uL (4.2-5.4); White Blood Count 6.07 K/uL (4.8-10.8)
[2021-06-20 06:18] LABS: BUN Creatinine Ratio 18.8 (10-20); Calcium 8.7 mg/dl (8.5-10.1); Creatinine Clr Calc Pharmacy 54.9 ml/min; Est GFR (African American) 80.7 ml/min; Est GFR (Non-African American) 69.6 ml/min; Potassium 3.3 mmol/L (3.5-5.1)
[2021-06-20] MEDS: HEPARIN SOD 5,000 UNIT/0.5 ML VIAL SQ SCH ×3 (06:36→20:26)
[2021-06-20] MEDS: ROSUVASTATIN CALCIUM 20 MG TAB PO SCH (08:19)
[2021-06-20] MEDS: RALOXIFENE HCL 60 MG TAB PO SCH (08:19)
[2021-06-20] MEDS ORDERED: POTASSIUM CHLORIDE CRTAB 20 MEQ TABCR PO STA (08:33)
--- NOTE | 2021-06-20 08:39 | Hospitalist Progress Note ---
Date of Service June 20, 2021 Assessment & Plan (1) Acute metabolic encephalopathy: Plan: 80yo F from [facility] with a PMH of HTN, HLD, history of right breast cancer s/p surgery, osteoporosis who presents with generalized weakness, anxiety and medication noncompliance. Alert, disoriented. Aware of person only Has been admitted recently for encephalopathy and was felt that patient delirium was likely multifactorial in setting of UTI, ROBERT, recent surgery, acute stress reaction and recent anesthesia Was also seen by psychiatry on previous admission and trazodone was stopped and she was transitioned to Seroquel at night. Consideration of starting SSRI as out-patient. Required PRN Haldol during admission Since discharge, patient has been started on BuSpar 7.5 mg TID Per son, was doing well and at cognitive baseline over the weekend CT head without acute abnormality. VSS, no leukocytosis, UA abnormal, UDS WNL, covid negative Discussed with psychiatry - recommend PRN Haldol, holding Buspar, Seroquel HS. 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 Psych consult placed (2) Acute UTI: Plan: Abnormal UA. Started on empiric Rocephin, plan to continue for now Urine culture posit. for E. coli Await sensitivities (3) Hypokalemia: Plan: Initial K 3.3 replace and monitor (4) Breast cancer: Plan: S/p recent surgery with Dr. Ernst Villarreal at [facility]. Outpatient follow-up. Son reported patient is to start radiation treatments (5) HTN (hypertension): Plan: Continue metoprolol succinate (6) HLD (hyperlipidemia): Plan: Continue statin DVT Ppx: SQ heparin Code status: FULL PCP: Silvia Dispo: Observation med/surg SonMarco A. Admission and Anticipated Discharge Date Admission Date: June 19, 2021 Subjective Patient seen in follow-up of mental status change, encephalopathy Currently she is sitting up in bed, in no acute distress, reports feeling anxious Mostly she is nervous because of going to the bathroom and not having proper clothing on Discussed possible UTI She is inquiring about possible discharge Seen by psychiatry yesterday inquiring about possible discharge Denies any fevers, chills, chest pain, shortness of breath, abdominal pain, diarrhea, nausea vomiting, dysuria Review of Systems 2 Review of Systems: All systems reviewed & are unremarkable except as noted in Subjective Physical Exam Physical Exam: General Appearance:WD/WN, elderly F in NAD Head: normocephalic, atraumatic Eyes:normal inspection, PERRL, EOMI, conjunctivae normal, anicteric sclerae ENT: external ear and nose normal, oropharynx normal Neck: normal visual inspection Respiratory:normal respiratory effort, lungs clear to auscultation, no wheeze, rales, rhonchi. No accessory muscle use Cardiovascular: regular rate, rhythm, no murmur, normal peripheral pulses, no BLE edema. Vessels: no JVD Chest: normal inspection of chest Abdomen/GI: normal bowel sounds, soft, nontender Extremities/Musculoskeletal:moves extremities Neurologic: PERRL, EOMI, no face palsy, no dysarthria, moves all extremities Psychiatric:Awake and alert, able to answer most questions appropriately Skin:normal color, warm/dry Results & Data Results & Data ([facility]) Vital Signs (Past 12 Hours) Vital Signs Temp Pulse Resp BP BP Pulse Ox 06/20/21 07:24 36.7 C 83 16 142/68 H 97 06/20/21 06:00 84 17 151/80 H 97 06/20/21 05:00 36.9 C 67 14 151/80 H 96 06/20/21 00:46 36.4 C L 95 H 17 151/80 H 96 Laboratory Results 06/20/21 06/20/21 06/19/21 Range/Units 05:17 05:17 Unknown WBC 6.07 (4.8-10.8) K/uL RBC 4.57 (4.2-5.4) M/uL Hgb 13.6 (12.0-16.0) g/dL Hct 40.3 (37-47) % MCV 88.2 (80-100) fL MCH 29.8 (25-34) pg MCHC 33.7 (32-36) g/dL RDW Std Deviation 47.1 H (36.4-46.3) fL RDW Coeff of Fozia 14.7 H (11.5-14.5) % Plt Count 253 (130-400) K/uL MPV 9.9 (7.4-10.4) fL Immature Gran % (Auto) % Neut % (Auto) % Lymph % (Auto) % [place] % (Auto) % Eos % (Auto) % Baso % (Auto) % Neut # (Auto) (1.4-6.5) K/uL Lymph # (Auto) (1.2-3.4) K/uL [place] # (Auto) (0.11-0.59) K/uL Eos # (Auto) (0-0.5) K/uL Baso # (Auto) (0-0.2) K/uL Immature Gran # (Auto) (0.00-0.02) K/uL Sodium 142 (136-145) mmol/L Potassium 3.3 L (3.5-5.1) mmol/L Chloride 107 (98-107) mmol/L Carbon Dioxide 30 (21-32) mmol/L Anion Gap 5.0 (3-11) BUN 15 (7-18) mg/dl Creatinine 0.80 (0.6-1.2) mg/dl Est Cr Clr Drug Dosing 54.9 ml/min Est GFR ( Amer) 80.7 ml/min Est GFR (Non-Af Amer) 69.6 ml/min BUN/Creatinine Ratio 18.8 (10-20) Glucose 91 (70-99) mg/dl Lactate (0.4-2.0) mmol/L Calcium 8.7 (8.5-10.1) mg/dl Phosphorus (2.5-4.9) mg/dl Magnesium (1.8-2.4) mg/dl Total Bilirubin (0.2-1) mg/dl AST (15-37) U/L ALT (12-78) Alkaline Phosphatase (45-117) U/L Troponin I (0-0.045) ng/ml Total Protein (6.4-8.2) gm/dl Albumin (3.4-5.0) gm/dl Globulin (2.5-4.0) gm/dl Albumin/Globulin Ratio (0.9-2) Lipase (73-393) U/L Procalcitonin (0-0.5) ng/ml TSH (0.300-4.500) uIu/ml Urine Color Urine Appearance (Clear) Urine pH (4.5-7.5) Ur Specific [place] (1.000-1.030) Urine Protein (Negative) Urine Glucose (UA) (Negative) Urine Ketones (Negative) Urine Blood (Negative) Urine Nitrite (Negative) Urine Bilirubin (Negative) Urine Urobilinogen (Negative) Ur Leukocyte Esterase (Negative) Urine WBC (Auto) (0-5) /hpf Urine RBC (Auto) (0-4) /hpf U Hyaline Cast (Auto) (0-5) /lpf U Epithel Cells (Auto) (0-5) /lpf Urine Bacteria (Auto) (Negative) Urine Opiates Screen (Neg) Ur Methadone, Qual (Neg) Urine Barbiturates (Neg) Ur Phencyclidine (PCP) (Neg) U Amphetamin/Meth Scrn (Neg) MDMA (Ecstasy) Screen (Neg) U Benzodiazepines Scrn (Neg) Ur Cocaine Metabolite (Neg) U Marijuana (THC) Screen (Neg) Ethyl Alcohol mg/dL (0-3) mg/dl SARS-CoV-2, RNA, NAAT NEGATIVE (NEGATIVE) 06/19/21 06/19/21 06/19/21 Range/Units 13:46 11:33 10:25 WBC (4.8-10.8) K/uL RBC (4.2-5.4) M/uL Hgb (12.0-16.0) g/dL Hct (37-47) % MCV (80-100) fL MCH (25-34) pg MCHC (32-36) g/dL RDW Std Deviation (36.4-46.3) fL RDW Coeff of Fozia (11.5-14.5) % Plt Count (130-400) K/uL MPV (7.4-10.4) fL Immature Gran % (Auto) % Neut % (Auto) % Lymph % (Auto) % [place] % (Auto) % Eos % (Auto) % Baso % (Auto) % Neut # (Auto) (1.4-6.5) K/uL Lymph # (Auto) (1.2-3.4) K/uL [place] # (Auto) (0.11-0.59) K/uL Eos # (Auto) (0-0.5) K/uL Baso # (Auto) (0-0.2) K/uL Immature Gran # (Auto) (0.00-0.02) K/uL Sodium (136-145) mmol/L Potassium (3.5-5.1) mmol/L Chloride (98-107) mmol/L Carbon Dioxide (21-32) mmol/L Anion Gap (3-11) BUN (7-18) mg/dl Creatinine (0.6-1.2) mg/dl Est Cr Clr Drug Dosing ml/min Est GFR ( Amer) ml/min Est GFR (Non-Af Amer) ml/min BUN/Creatinine Ratio (10-20) Glucose (70-99) mg/dl Lactate 1.9 2.2 H* (0.4-2.0) mmol/L Calcium (8.5-10.1) mg/dl Phosphorus (2.5-4.9) mg/dl Magnesium (1.8-2.4) mg/dl Total Bilirubin (0.2-1) mg/dl AST (15-37) U/L ALT (12-78) Alkaline Phosphatase (45-117) U/L Troponin I (0-0.045) ng/ml Total Protein (6.4-8.2) gm/dl Albumin (3.4-5.0) gm/dl Globulin (2.5-4.0) gm/dl Albumin/Globulin Ratio (0.9-2) Lipase (73-393) U/L Procalcitonin (0-0.5) ng/ml TSH (0.300-4.500) uIu/ml Urine Color Urine Appearance (Clear) Urine pH (4.5-7.5) Ur Specific [place] (1.000-1.030) Urine Protein (Negative) Urine Glucose (UA) (Negative) Urine Ketones (Negative) Urine Blood (Negative) Urine Nitrite (Negative) Urine Bilirubin (Negative) Urine Urobilinogen (Negative) Ur Leukocyte Esterase (Negative) Urine WBC (Auto) (0-5) /hpf Urine RBC (Auto) (0-4) /hpf U Hyaline Cast (Auto) (0-5) /lpf U Epithel Cells (Auto) (0-5) /lpf Urine Bacteria (Auto) (Negative) Urine Opiates Screen Neg (Neg) Ur Methadone, Qual Neg (Neg) Urine Barbiturates Neg (Neg) Ur Phencyclidine (PCP) Neg (Neg) U Amphetamin/Meth Scrn Neg (Neg) MDMA (Ecstasy) Screen Neg (Neg) U Benzodiazepines Scrn Neg (Neg) Ur Cocaine Metabolite Neg (Neg) U Marijuana (THC) Screen Neg (Neg) Ethyl Alcohol mg/dL (0-3) mg/dl SARS-CoV-2, RNA, NAAT (NEGATIVE) 06/19/21 06/19/21 06/19/21 Range/Units 10:25 09:53 08:57 WBC (4.8-10.8) K/uL RBC (4.2-5.4) M/uL Hgb (12.0-16.0) g/dL Hct (37-47) % MCV (80-100) fL MCH (25-34) pg MCHC (32-36) g/dL RDW Std Deviation (36.4-46.3) fL RDW Coeff of Fozia (11.5-14.5) % Plt Count (130-400) K/uL MPV (7.4-10.4) fL Immature Gran % (Auto) % Neut % (Auto) % Lymph % (Auto) % [place] % (Auto) % Eos % (Auto) % Baso % (Auto) % Neut # (Auto) (1.4-6.5) K/uL Lymph # (Auto) (1.2-3.4) K/uL [place] # (Auto) (0.11-0.59) K/uL Eos # (Auto) (0-0.5) K/uL Baso # (Auto) (0-0.2) K/uL Immature Gran # (Auto) (0.00-0.02) K/uL Sodium (136-145) mmol/L Potassium (3.5-5.1) mmol/L Chloride (98-107) mmol/L Carbon Dioxide (21-32) mmol/L Anion Gap (3-11) BUN (7-18) mg/dl Creatinine (0.6-1.2) mg/dl Est Cr Clr Drug Dosing ml/min Est GFR ( Amer) ml/min Est GFR (Non-Af Amer) ml/min BUN/Creatinine Ratio (10-20) Glucose (70-99) mg/dl Lactate (0.4-2.0) mmol/L Calcium (8.5-10.1) mg/dl Phosphorus (2.5-4.9) mg/dl Magnesium (1.8-2.4) mg/dl Total Bilirubin (0.2-1) mg/dl AST (15-37) U/L ALT (12-78) Alkaline Phosphatase (45-117) U/L Troponin I (0-0.045) ng/ml Total Protein (6.4-8.2) gm/dl Albumin (3.4-5.0) gm/dl Globulin (2.5-4.0) gm/dl Albumin/Globulin Ratio (0.9-2) Lipase (73-393) U/L Procalcitonin < 0.05 (0-0.5) ng/ml TSH (0.300-4.500) uIu/ml Urine Color Yellow Urine Appearance Clear (Clear) Urine pH 6.5 (4.5-7.5) Ur Specific [place] 1.014 (1.000-1.030) Urine Protein 1+ H (Negative) Urine Glucose (UA) Negative (Negative) Urine Ketones Trace H (Negative) Urine Blood 2+ H (Negative) Urine Nitrite Negative (Negative) Urine Bilirubin Negative (Negative) Urine Urobilinogen Negative (Negative) Ur Leukocyte Esterase Negative (Negative) Urine WBC (Auto) 1-5 (0-5) /hpf Urine RBC (Auto) 0-4 (0-4) /hpf U Hyaline Cast (Auto) 1-5 (0-5) /lpf U Epithel Cells (Auto) 10-20 H (0-5) /lpf Urine Bacteria (Auto) 4+ H (Negative) Urine Opiates Screen (Neg) Ur Methadone, Qual (Neg) Urine Barbiturates (Neg) Ur Phencyclidine (PCP) (Neg) U Amphetamin/Meth Scrn (Neg) MDMA (Ecstasy) Screen (Neg) U Benzodiazepines Scrn (Neg) Ur Cocaine Metabolite (Neg) U Marijuana (THC) Screen (Neg) Ethyl Alcohol mg/dL < 3.0 (0-3) mg/dl SARS-CoV-2, RNA, NAAT (NEGATIVE) 06/19/21 06/19/21 Range/Units 08:57 08:57 WBC 7.07 (4.8-10.8) K/uL RBC 4.59 (4.2-5.4) M/uL Hgb 13.5 (12.0-16.0) g/dL Hct 40.4 (37-47) % MCV 88.0 (80-100) fL MCH 29.4 (25-34) pg MCHC 33.4 (32-36) g/dL RDW Std Deviation 47.5 H (36.4-46.3) fL RDW Coeff of Fozia 14.7 H (11.5-14.5) % Plt Count 274 (130-400) K/uL MPV 10.5 H (7.4-10.4) fL Immature Gran % (Auto) 0.1 % Neut % (Auto) 77.5 % Lymph % (Auto) 13.6 % [place] % (Auto) 8.3 % Eos % (Auto) 0.4 % Baso % (Auto) 0.1 % Neut # (Auto) 5.47 (1.4-6.5) K/uL Lymph # (Auto) 0.96 L (1.2-3.4) K/uL [place] # (Auto) 0.59 (0.11-0.59) K/uL Eos # (Auto) 0.03 (0-0.5) K/uL Baso # (Auto) 0.01 (0-0.2) K/uL Immature Gran # (Auto) 0.01 (0.00-0.02) K/uL Sodium 140 (136-145) mmol/L Potassium 3.3 L (3.5-5.1) mmol/L Chloride 104 (98-107) mmol/L Carbon Dioxide 29 (21-32) mmol/L Anion Gap 7.0 (3-11) BUN 29 H (7-18) mg/dl Creatinine 1.01 (0.6-1.2) mg/dl Est Cr Clr Drug Dosing 43.5 ml/min Est GFR ( Amer) 60.9 ml/min Est GFR (Non-Af Amer) 52.5 ml/min BUN/Creatinine Ratio 28.9 H (10-20) Glucose 128 H (70-99) mg/dl Lactate (0.4-2.0) mmol/L Calcium 9.5 (8.5-10.1) mg/dl Phosphorus 2.3 L (2.5-4.9) mg/dl Magnesium 2.5 H (1.8-2.4) mg/dl Total Bilirubin 0.7 (0.2-1) mg/dl AST 42 H (15-37) U/L ALT 56 (12-78) Alkaline Phosphatase 62 (45-117) U/L Troponin I < 0.015 (0-0.045) ng/ml Total Protein 7.2 (6.4-8.2) gm/dl Albumin 3.8 (3.4-5.0) gm/dl Globulin 3.4 (2.5-4.0) gm/dl Albumin/Globulin Ratio 1.1 (0.9-2) Lipase 167 (73-393) U/L Procalcitonin (0-0.5) ng/ml TSH 2.920 (0.300-4.500) uIu/ml Urine Color Urine Appearance (Clear) Urine pH (4.5-7.5) Ur Specific [place] (1.000-1.030) Urine Protein (Negative) Urine Glucose (UA) (Negative) Urine Ketones (Negative) Urine Blood (Negative) Urine Nitrite (Negative) Urine Bilirubin (Negative) Urine Urobilinogen (Negative) Ur Leukocyte Esterase (Negative) Urine WBC (Auto) (0-5) /hpf Urine RBC (Auto) (0-4) /hpf U Hyaline Cast (Auto) (0-5) /lpf U Epithel Cells (Auto) (0-5) /lpf Urine Bacteria (Auto) (Negative) Urine Opiates Screen (Neg) Ur Methadone, Qual (Neg) Urine Barbiturates (Neg) Ur Phencyclidine (PCP) (Neg) U Amphetamin/Meth Scrn (Neg) MDMA (Ecstasy) Screen (Neg) U Benzodiazepines Scrn (Neg) Ur Cocaine Metabolite (Neg) U Marijuana (THC) Screen (Neg) Ethyl Alcohol mg/dL (0-3) mg/dl SARS-CoV-2, RNA, NAAT (NEGATIVE) Medications Administered Current Inpatient Medications Acetaminophen (Acetaminophen 325 Mg Tab) 650 mg PO Q4H PRN PRN Reason: pain/fever Stop: 07/19/21 15:22 Buspirone HCl (Buspirone 7.5 Mg Tab) 7.5 mg PO TID TRISTEN Stop: 07/19/21 13:59 Last Admin: 06/19/21 15:00 Dose: Not Given Documented by: Calcium Carbonate (Calcium Carbonate 500 Mg Chewable Tab) 500 mg PO Q3H PRN PRN Reason: HEARTBURN/INDIGESTION Stop: 07/19/21 15:22 Heparin Sodium (Porcine) (Heparin Sod 5,000 Unit/0.5 Ml Vial) 5,000 units SQ Q8 [facility] Stop: 07/19/21 15:29 Last Admin: 06/20/21 06:36 Dose: Not Given Documented by: Ceftriaxone Sodium 2,000 mg/ (Dextrose) 50 mls @ 100 mls/hr IV Q24H [facility]; Protocol Stop: 06/25/21 10:59 Metoprolol Succinate (Metoprolol Succ 25mg Ext Rel Tab) 25 mg PO BID [facility] Stop: 07/19/21 20:59 Last Admin: 06/20/21 08:19 Dose: 25 mg Documented by: Ondansetron HCl (Ondansetron Inj 2 Mg/Ml 2 Ml Vial) 4 mg IV Q6H PRN PRN Reason: Nausea Stop: 07/19/21 15:22 Polyethylene Glycol (Polyethylene (Miralax) 17 Gm Pack) 17 gm PO DAILY PRN PRN Reason: Constipation Stop: 07/19/21 15:22 Potassium Chloride (Potassium Chloride Crtab 20 Meq Tabcr) 40 meq PO NOW STA Stop: 06/20/21 08:34 Quetiapine Fumarate (Quetiapine Fumarate 25 Mg Tablet) 12.5 mg PO HS [facility] Stop: 07/19/21 20:59 Last Admin: 06/19/21 21:00 Dose: 12.5 mg Documented by: Raloxifene HCl (Raloxifene Hcl 60 Mg Tab) 60 mg PO QAM [facility] Stop: 07/20/21 08:59 Last Admin: 06/20/21 08:19 Dose: 60 mg Documented by: Rosuvastatin Calcium (Rosuvastatin Calcium 20 Mg Tab) 40 mg PO QAM [facility] Stop: 07/20/21 08:59 Last Admin: 06/20/21 08:19 Dose: 40 mg Documented by:
[2021-06-20] MEDS: cefTRIAXone SODIUM 2,000 MG in DEXTROSE 5% 50 ML IV SCH (11:49)
--- NOTE | 2021-06-20 11:54 | Psychiatric Consultation ---
Date of Consultation June 20, 2021 Impression / Recommendations Impression 80 yo female with recurrent hospitalization with AMS seemingly out of proportion to her underlying medical condition. No major cognitive disorder at baseline and acute onset both times argues against depression with psychotic features or catatonia. She presents to many as anxious and she likely has some anxiety at baseline but on exam all of her anxiety stems from her cognitive change--unable to identify her clothes, executive functioning with planning to dress or problem solving around the bathroom. She has difficulty describing how to complete certain tasks which may indicate some degree of apraxia. Work up last stay included MRI but not EEG. Seroquel has been helpful last stay, unclear if she continued upon discharge. Buspar is being held due to some concern it may have been activating or causing akathisia as a side effect. (1) Encephalopathy: (2) Acute UTI: continue Seroquel 12.5 mg po qhs. She will not agree to increase it at this time. She generally will take meds PO when periods of breakthrough agitation so 12.5 mg Seroquel q6 prn appropriate. Haldol 2 mg was more effective than Zyprexa IM last stay. I see no evidence of catatonia on exam today and would suggest avoiding benzos due to fall risk. Psych History Identifying Data 80 yo female from [place], recent admission for AMS in context of UTI, now readmit from [facility] with acute onset of confusion with worsening anxiety. Chief Complaint "I just don't know about that red thing". referring to the sock, can't decide whether or not to wear it. History of Present Illness Known to me from consultation on 06/04/21: Patient was recently diagnosed with breast CA and recently underwent a lumpectomy around [facility]. She denies being overwhelmed by her diagnosis, just states "not sure if I need to do all this at age 80". PHQ-9 score is 1 for difficulty sleeping for several days over the past 2 weeks. She started taking melatonin the night before her surgery and "I thought maybe I saw a little devil when they were treating me" and later was given 10 tabs of 0.5 mg lorazepam on 05/25 from the ED for sleep. This was changed to trazodone 50 mg hs when seen by primary care for age/fall risk per son. The patient normally manages her medications but he has been overseeing this the past week due to her change in mental status/confusion. He denies that she has ever had an episode like this and confirms no psych hx. Apparently she was calling people late at night prior to the procedure and this increase in frequency after. All of her other medications seem longstanding. There is a percocet rx listed on her external med rec from 05/23, not clear if took. She denies taking any other OTC meds or supplements. Mrs. Hale remained anxious during her hospital stay but rather dramatic improvement prior to discharge to facility. She had declined increase in Seroquel prior to discharge and appears to have been started on Buspar 7.5 mg TID the day after discharge from [facility]. She is representing with similar symptoms (though restlessness is not as dramatic and less catholic preoccupation/abbott) and received one dose of Haldol 2 mg in the ED as previously effective for de lirium. Nursing contacted me yesterday pm at direction of hospitalist service for additional recommendations as little effect this time. Test dose of 1 mg Ativan IV ordered for suspicion of agitated/manic catatonia as an atypical presentation. She apparently slept some overnight and this am is confused. She describes that her clothes didn't feel right at the facility and although cannot describe urinary symptoms states that she can't get to bath room in time and worries she'll pee all over the floor and not have anything to wear. She had difficult describing how to put on shoes and recognizing her red sock and couldn't decide whether or not she wanted nurse to put a sock on. Per son her MSE was normal over the weekend with acute onset 06/19/21. Past Psychiatric History Previous Psych History: n/a, see HPI Allergies Allergy/AdvReac Type Severity Reaction Status Date / Time No Known Allergies Allergy Verified 06/03/21 18:44 Home Medications Medication Instructions Recorded Confirmed Type calcium carbonate 200 mg calcium 200 mg PO DIRECTED PRN #10 tab 06/14/21 06/19/21 Rx (500 mg) chewable tablet (Tums) metoprolol succinate 25 mg 25 mg PO BID #60 tab 06/14/21 06/19/21 Rx tablet,extended release 24 hr quetiapine 25 mg tablet 12.5 mg PO HS #30 tab 06/14/21 06/19/21 Rx buspirone 7.5 mg tablet 7.5 mg PO TID 06/19/21 06/19/21 History raloxifene 60 mg tablet 60 mg PO QAM 06/19/21 06/19/21 History rosuvastatin 40 mg tablet 40 mg PO QAM 06/19/21 06/19/21 History Family History denied Personal History Childhood: Drifting, 1 of 5 kids Employment Status: Retired Marital Status: Number Of Children: 2 sons Beliefs That Will Affect Care: None History of Legal Problems: none Psychological Trauma History Comment: since surgery Patient History Medical History Acute hypokalemia Acute UTI Altered mental status Breast cancer Depression HLD (hyperlipidemia) HTN (hypertension) Surgical History H/O breast surgery Social History Smoking Status: Never smoker Hx Alcohol Use: No Hx Substance Use: No Preferred Language: Occitan Communication Ability: Effective 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 Worker 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: No Beliefs That Will Affect Care: None marital status: Current Living Situation: Personal Care Facility Feels Safe at Home: Yes Assistive Devices: Glasses Physical Exam Psychiatric: Orientation: alert, oriented to person and oriented to place Apperance: appropriately groomed Eye Contact: + fair eye contact Motor Behavior: no abnormal motor movements Speech: normal rate/rhythm/volume of speech Affect: + anxious affect Mood: no depressed mood Thought Process: + perseveration and + concrete thought process Thought Content: not paranoid and no delusions Suicidal Thoughts: denies suicidal thoughts Homicidal Thoughts: denies homicidal thoughts Hallucinations: no auditory hallucinations and no visual hallucinations Cognition: language grossly intact (but word finding difficulties) Insight: + limited insight Jaz gement: + limited judgement Vital Signs (Past 24 Hours): Last Vital Signs Temp 36.4 C L 06/20/21 11:20 Pulse 83 06/20/21 11:20 Resp 16 06/20/21 11:20 BP 157/76 H 06/20/21 11:20 Pulse Ox 97 06/20/21 11:20 Review of Systems Unobtainable due to cognitive status Results & Data (PSY) Laboratory Results 06/20/21 06/20/21 06/19/21 Range/Units 05:17 05:17 13:46 WBC 6.07 (4.8-10.8) K/uL RBC 4.57 (4.2-5.4) M/uL Hgb 13.6 (12.0-16.0) g/dL Hct 40.3 (37-47) % MCV 88.2 (80-100) fL MCH 29.8 (25-34) pg MCHC 33.7 (32-36) g/dL RDW Std Deviation 47.1 H (36.4-46.3) fL RDW Coeff of Fozia 14.7 H (11.5-14.5) % Plt Count 253 (130-400) K/uL MPV 9.9 (7.4-10.4) fL Sodium 142 (136-145) mmol/L Potassium 3.3 L (3.5-5.1) mmol/L Chloride 107 (98-107) mmol/L Carbon Dioxide 30 (21-32) mmol/L Anion Gap 5.0 (3-11) BUN 15 (7-18) mg/dl Creatinine 0.80 (0.6-1.2) mg/dl Est Cr Clr Drug Dosing 54.9 ml/min Est GFR ( Amer) 80.7 ml/min Est GFR (Non-Af Amer) 69.6 ml/min BUN/Creatinine Ratio 18.8 (10-20) Glucose 91 (70-99) mg/dl Lactate 1.9 (0.4-2.0) mmol/L Calcium 8.7 (8.5-10.1) mg/dl 06/19/21 Range/Units 11:33 WBC (4.8-10.8) K/uL RBC (4.2-5.4) M/uL Hgb (12.0-16.0) g/dL Hct (37-47) % MCV (80-100) fL MCH (25-34) pg MCHC (32-36) g/dL RDW Std Deviation (36.4-46.3) fL RDW Coeff of Fozia (11.5-14.5) % Plt Count (130-400) K/uL MPV (7.4-10.4) fL Sodium (136-145) mmol/L Potassium (3.5-5.1) mmol/L Chloride (98-107) mmol/L Carbon Dioxide (21-32) mmol/L Anion Gap (3-11) BUN (7-18) mg/dl Creatinine (0.6-1.2) mg/dl Est Cr Clr Drug Dosing ml/min Est GFR ( Amer) ml/min Est GFR (Non-Af Amer) ml/min BUN/Creatinine Ratio (10-20) Glucose (70-99) mg/dl Lactate 2.2 H* (0.4-2.0) mmol/L Calcium (8.5-10.1) mg/dl Medications Administered Buspirone HCl (Buspirone 7.5 Mg Tab) 7.5 mg PO TID [facility] Stop: 07/19/21 13:59 Last Admin: 06/19/21 15:00 Dose: Not Given Documented by: [id number] Heparin Sodium (Porcine) (Heparin Sod 5,000 Unit/0.5 Ml Vial) 5,000 units SQ Q8 [facility] Stop: 07/19/21 15:29 Last Admin: 06/20/21 06:36 Dose: Not Given Documented by: [id number] Admin: 06/19/21 23:35 Dose: Not Given Documented by: [id number] Admin: 06/19/21 23:34 Dose: Not Given Documented by: [id number] Metoprolol Succinate (Metoprolol Succ 25mg Ext Rel Tab) 25 mg PO BID [facility] Stop: 07/19/21 20:59 Last Admin: 06/20/21 08:19 Dose: 25 mg Documented by: [id number] Admin: 06/20/21 00:43 Dose: 25 mg Documented by: [id number] Quetiapine Fumarate (Quetiapine Fumarate 25 Mg Tablet) 12.5 mg PO HS [facility] Stop: 07/19/21 20:59 Last Admin: 06/19/21 21:00 Dose: 12.5 mg Documented by: [id number] Raloxifene HCl (Raloxifene Hcl 60 Mg Tab) 60 mg PO QAM [facility] Stop: 07/20/21 08:59 Last Admin: 06/20/21 08:19 Dose: 60 mg Documented by: [id number] Rosuvastatin Calcium (Rosuvastatin Calcium 20 Mg Tab) 40 mg PO QAM [facility] Stop: 07/20/21 08:59 Last Admin: 06/20/21 08:19 Dose: 40 mg Documented by: [id number] Coding Level of Care Code 34690 Inpt Consult Level 3 Diagnoses Encephalopathy G93.40 Acute UTI N39.0
[2021-06-20] MEDS: QUEtiapine FUMARATE 25 MG TABLET PO SCH (20:24)
[2021-06-21] MEDS: HEPARIN SOD 5,000 UNIT/0.5 ML VIAL SQ SCH ×3 (05:42→21:00)
--- NOTE | 2021-06-21 06:16 | Electrocardiogram Report ---
Test Reason : Blood Pressure : / mmHG Vent. Rate : 091 BPM Atrial Rate : 091 BPM P-R Int : 182 ms QRS Dur : 082 ms QT Int : 348 ms P-R-T Axes : 079 -20 -11 degrees QTc Int : 428 ms Poor data quality, interpretation may be adversely affected Normal sinus rhythm Nonspecific ST and T wave abnormality Abnormal ECG When compared with ECG of 06-JUN-2021 09:47, Limb lead reversal is no longer present Confirmed by Yoni Khoury ([id number]) on 06/21/2021 6:16:08 AM Referred By: Varun Clark [place] Confirmed By:Yoni Khoury
[2021-06-21] MEDS: ROSUVASTATIN CALCIUM 20 MG TAB PO SCH (07:27)
[2021-06-21] MEDS: METOPROLOL SUCC 25MG EXT REL TAB PO SCH ×2 (07:27→20:57)
[2021-06-21] MEDS: RALOXIFENE HCL 60 MG TAB PO SCH (07:27)
[2021-06-21 09:43] LABS: Mean Corpuscular Hemoglobin 29.6 pg (25-34); Mean Corpuscular Hgb Conc 33.3 g/dL (32-36); Mean Corpuscular Volume 88.8 fL (80-100); Mean Platelet Volume 9.7 fL (7.4-10.4); Platelet Count 308 K/uL (130-400); RDW Coefficient of Variation 14.8 % (11.5-14.5); RDW Standard Deviation 47.4 fL (36.4-46.3); Red Blood Count 5.07 M/uL (4.2-5.4); White Blood Count 6.62 K/uL (4.8-10.8)
[2021-06-21 10:12] LABS: BUN Creatinine Ratio 17.2 (10-20); Calcium 8.9 mg/dl (8.5-10.1); Creatinine Clr Calc Pharmacy 40.3 ml/min; Est GFR (African American) 55.5 ml/min; Est GFR (Non-African American) 47.9 ml/min; Magnesium 2.2 mg/dl (1.8-2.4); Phosphorus 1.9 mg/dl (2.5-4.9); Potassium 3.3 mmol/L (3.5-5.1)
[2021-06-21] MEDS: cefTRIAXone SODIUM 2,000 MG in DEXTROSE 5% 50 ML IV SCH (11:18)
[2021-06-21] MEDS ORDERED: POTASSIUM CHLORIDE CRTAB 20 MEQ TABCR PO STA (12:10)
--- NOTE | 2021-06-21 12:11 | Hospitalist Progress Note ---
Date of Service June 21, 2021 Assessment & Plan (1) Acute metabolic encephalopathy: Plan: 80yo F from [facility] with a PMH of HTN, HLD, history of right breast cancer s/p surgery, osteoporosis who presents with generalized weakness, anxiety and medication noncompliance. Alert, disoriented. Aware of person only Has been admitted recently for encephalopathy and was felt that patient delirium was likely multifactorial in setting of UTI, ROBERT, recent surgery, acute stress reaction and recent anesthesia Was also seen by psychiatry on previous admission and trazodone was stopped and she was transitioned to Seroquel at night. Since discharge, patient has been started on BuSpar 7.5 mg TID Per son, was doing well and at cognitive baseline over the weekend CT head without acute abnormality. VSS, no leukocytosis, UA abnormal, UDS WNL, covid negative Discussed with psychiatry - recommend PRN Haldol, holding Buspar, continue Seroquel HS. Pt clinically improved, also being treated for E. coli UTI Per psychiatry, continue Seroquel HS. Let pt settle back at [facility] and consider starting Lexapro when seen by PCP at her hospital follow up visit. Will stop Buspar. (2) Acute UTI: Plan: UTI Abnormal UA on admission. Started on empiric Rocephin Urine culture posit. for E. coli , cont. Rocephin while inpt, will DC on PO Abx (3) Hypokalemia: Plan: Initial K 3.3 replace and monitor (4) Breast cancer: Plan: S/p recent surgery with Dr. Ernst Villarreal at [facility]. Outpatient follow-up. Son reported patient is to start radiation treatments (5) HTN (hypertension): Plan: Continue metoprolol succinate (6) HLD (hyperlipidemia): Plan: Continue statin DVT Ppx: SQ heparin Code status: FULL PCP: Dr. Vega Dispo: med/surg SonMarco A. Admission and Anticipated Discharge Date Admission Date: June 19, 2021 Subjective Patient seen in follow-up of mental status change, encephalopathy, UTI Currently she is sitting up in bed, in no acute distress She is nervous about insurance covering her hospital stay Currently she has no complaints Denies any fevers, chills, chest pain, shortness of breath, abdominal pain, diarrhea, nausea vomiting, dysuria Seen by psychiatry - EEG recommended Clinically pt much improved, plan to likely DC tomorrow Review of Systems Review of Systems: All systems reviewed & are unremarkable except as noted in Subjective Physical Exam Physical Exam: General Appearance:WD/WN, elderly F in NAD Head: normocephalic, atraumatic Eyes:normal inspection, PERRL, EOMI, conjunctivae normal, anicteric sclerae ENT: external ear and nose normal, oropharynx normal Neck: normal visual inspection Respiratory:normal respiratory effort, lungs clear to auscultation, no wheeze, rales, rhonchi. No accessory muscle use Cardiovascular: regular rate, rhythm, no murmur, normal peripheral pulses, no BLE edema. Vessels: no JVD Chest: normal inspection of chest Abdomen/GI: normal bowel sounds, soft, nontender Extremities/Musculoskeletal:moves extremities Neurologic: PERRL, EOMI, no face palsy, no dysarthria, moves all extremities Psychiatric:Awake and alert, able to answer most questions appropriately Skin:normal color, warm/dry Results & Data Results & Data ([facility]) Vital Signs (Past 12 Hours) Vital Signs Temp Pulse Resp BP Pulse Ox 06/21/21 07:21 36.8 C 69 16 130/70 97 Laboratory Results 06/21/21 06/21/21 Range/Units 09:32 09:32 WBC 6.62 (4.8-10.8) K/uL RBC 5.07 (4.2-5.4) M/uL Hgb 15.0 (12.0-16.0) g/dL Hct 45.0 (37-47) % MCV 88.8 (80-100) fL MCH 29.6 (25-34) pg MCHC 33.3 (32-36) g/dL RDW Std Deviation 47.4 H (36.4-46.3) fL RDW Coeff of Fozia 14.8 H (11.5-14.5) % Plt Count 308 (130-400) K/uL MPV 9.7 (7.4-10.4) fL Sodium 140 (136-145) mmol/L Potassium 3.3 L (3.5-5.1) mmol/L Chloride 106 (98-107) mmol/L Carbon Dioxide 29 (21-32) mmol/L Anion Gap 5.0 (3-11) BUN 19 H (7-18) mg/dl Creatinine 1.09 (0.6-1.2) mg/dl Est Cr Clr Drug Dosing 40.3 ml/min Est GFR ( Amer) 55.5 ml/min Est GFR (Non-Af Amer) 47.9 ml/min BUN/Creatinine Ratio 17.2 (10-20) Glucose 147 H (70-99) mg/dl Calcium 8.9 (8.5-10.1) mg/dl Phosphorus 1.9 L (2.5-4.9) mg/dl Magnesium 2.2 (1.8-2.4) mg/dl Medications Administered Current Inpatient Medications Acetaminophen (Acetaminophen 325 Mg Tab) 650 mg PO Q4H PRN PRN Reason: pain/fever Stop: 07/19/21 15:22 Buspirone HCl (Buspirone 7.5 Mg Tab) 7.5 mg PO TID [facility] Stop: 07/19/21 13:59 Last Admin: 06/19/21 15:00 Dose: Not Given Documented by: Calcium Carbonate (Calcium Carbonate 500 Mg Chewable Tab) 500 mg PO Q3H PRN PRN Reason: HEARTBURN/INDIGESTION Stop: 07/19/21 15:22 Heparin Sodium (Porcine) (Heparin Sod 5,000 Unit/0.5 Ml Vial) 5,000 units SQ Q8 [facility] Stop: 07/19/21 15:29 Last Admin: 06/21/21 05:42 Dose: 5,000 units Documented by: Ceftriaxone Sodium 2,000 mg/ (Dextrose) 50 mls @ 100 mls/hr IV Q24H [facility]; Protocol Stop: 06/25/21 10:59 Last Infusion: 06/21/21 11:49 Dose: Infused Documented by: Metoprolol Succinate (Metoprolol Succ 25mg Ext Rel Tab) 25 mg PO BID [facility] Stop: 07/19/21 20:59 Last Admin: 06/21/21 07:27 Dose: 25 mg Documented by: Ondansetron HCl (Ondansetron Inj 2 Mg/Ml 2 Ml Vial) 4 mg IV Q6H PRN PRN Reason: Nausea Stop: 07/19/21 15:22 Polyethylene Glycol (Polyethylene (Miralax) 17 Gm Pack) 17 gm PO DAILY PRN PRN Reason: Constipation Stop: 07/19/21 15:22 Potassium Chloride (Potassium Chloride Crtab 20 Meq Tabcr) 40 meq PO NOW STA Stop: 06/21/21 12:11 Quetiapine Fumarate (Quetiapine Fumarate 25 Mg Tablet) 12.5 mg PO [facility] Stop: 07/19/21 20:59 Last Admin: 06/20/21 20:24 Dose: 12.5 mg Documented by: Raloxifene HCl (Raloxifene Hcl 60 Mg Tab) [facility]: 07/20/21 08:59 Last Admin: 06/21/21 07:27 Dose: 60 mg Documented by: Rosuvastatin Calcium (Rosuvastatin Calcium 20 Mg Tab) [facility] Stop: 07/20/21 08:59 Last Admin: 06/21/21 07:27 Dose: 40 mg Documented by:
--- NOTE | 2021-06-21 14:29 | Electroencephalogram ---
EEG Procedure Note Date of Service June 21, 2021 Start / End Times Start Time: 1052 End Time: 1112 Referring Physician Abhishek Schilling MD History Multifactorial encephalopathy Home Medication List Medication Instructions Recorded Confirmed Type calcium carbonate 200 mg calcium 200 mg PO DIRECTED PRN #10 tab 06/14/21 06/19/21 Rx (500 mg) chewable tablet (Tums) metoprolol succinate 25 mg 25 mg PO BID #60 tab 06/14/21 06/19/21 Rx tablet,extended release 24 hr quetiapine 25 mg tablet 12.5 mg PO HS #30 tab 06/14/21 06/19/21 Rx buspirone 7.5 mg tablet 7.5 mg PO TID 06/19/21 06/19/21 History raloxifene 60 mg tablet 60 mg PO QAM 06/19/21 06/19/21 History rosuvastatin 40 mg tablet 40 mg PO QAM 06/19/21 06/19/21 History Inpatient Medication List Buspirone HCl (Buspirone 7.5 Mg Tab) 7.5 mg PO TID [facility] Stop: 07/19/21 13:59 Last Admin: 06/19/21 15:00 Dose: Not Given Documented by: [id number] Heparin Sodium (Porcine) (Heparin Sod 5,000 Unit/0.5 Ml Vial) 5,000 units SQ Q8 [facility] Stop: 07/19/21 15:29 Last Admin: 06/21/21 13:16 Dose: 5,000 units Documented by: [id number] Admin: 06/21/21 05:42 Dose: 5,000 units Documented by: [id number] Admin: 06/20/21 20:26 Dose: Not Given Documented by: [id number] Admin: 06/20/21 15:08 Dose: 5,000 units Documented by: [id number] Admin: 06/20/21 06:36 Dose: Not Given Documented by: [id number] Admin: 06/19/21 23:35 Dose: Not Given Documented by: [id number] Admin: 06/19/21 23:34 Dose: Not Given Documented by: [id number] Ceftriaxone Sodium 2,000 mg/ (Dextrose) 50 mls @ 100 mls/hr IV Q24H [facility]; Protocol Stop: 06/25/21 10:59 Last Infusion: 06/21/21 11:49 Dose: 0 mls/hr Documented by: [id number] Admin: 06/21/21 11:18 Dose: 100 mls/hr Documented by: [id number] Infusion: 06/20/21 12:35 Dose: 0 mls/hr Documented by: [id number] Admin: 06/20/21 11:49 Dose: 100 mls/hr Documented by: [id number] Metoprolol Succinate (Metoprolol Succ 25mg Ext Rel Tab) 25 mg PO BID [facility] Stop: 07/19/21 20:59 Last Admin: 06/21/21 07:27 Dose: 25 mg Documented by: [id number] Admin: 06/20/21 20:24 Dose: 25 mg Documented by: [id number] Admin: 06/20/21 08:19 Dose: 25 mg Documented by: [id number] Admin: 06/20/21 00:43 Dose: 25 mg Documented by: [id number] Quetiapine Fumarate (Quetiapine Fumarate 25 Mg Tablet) 12.5 mg PO HS [facility] Stop: 07/19/21 20:59 Last Admin: 06/20/21 20:24 Dose: 12.5 mg Documented by: [id number] Admin: 06/19/21 21:00 Dose: 12.5 mg Documented by: [id number] Raloxifene HCl (Raloxifene Hcl 60 Mg Tab) 60 mg PO QAM [facility] Stop: 07/20/21 08:59 Last Admin: 06/21/21 07:27 Dose: 60 mg Documented by: [id number] Admin: 06/20/21 08:19 Dose: 60 mg Documented by: [id number] Rosuvastatin Calcium (Rosuvastatin Calcium 20 Mg Tab) 40 mg PO QAM [facility] Stop: 07/20/21 08:59 Last Admin: 06/21/21 07:27 Dose: 40 mg Documented by: [id number] Admin: 06/20/21 08:19 Dose: 40 mg Documented by: [id number] Discontinued Medications Haloperidol (Haloperidol 2 Mg/1 Ml Udp) 2 mg PO NOW ONE Stop: 06/19/21 14:20 Last Admin: 06/19/21 14:59 Dose: 2 mg Documented by: [id number] Sodium Chloride (Nss 1000ml) 1,000 mls @ 999 mls/hr IV .Q1H1M ONE Stop: 06/19/21 10:12 Last Infusion: 06/19/21 11:16 Dose: 0 mls/hr Documented by: [id number] Admin: 06/19/21 09:27 Dose: 999 mls/hr Documented by: [id number] Potassium Chloride (K Ari / Wtr) 10 meq in 100 mls @ 100 mls/hr IV Q1H [facility]; Protocol Stop: 06/19/21 12:44 Last Infusion: 06/19/21 14:23 Dose: 0 mls/hr Documented by: [id number] Admin: 06/19/21 12:45 Dose: 100 mls/hr Documented by: [id number] Infusion: 06/19/21 12:45 Dose: 0 mls/hr Documented by: [id number] Admin: 06/19/21 11:47 Dose: 100 mls/hr Documented by: [id number] Ceftriaxone Sodium (Rocephin) 2,000 mg in 70 mls @ 140 mls/hr IV NOW STA Stop: 06/19/21 11:24 Last Infusion: 06/19/21 11:47 Dose: 0 mls/hr Documented by: [id number] Admin: 06/19/21 11:27 Dose: 140 mls/hr Documented by: [id number] Lorazepam (Ativan) 1 mg in 2 mls @ 2 mls/min IV NOW STA Stop: 06/19/21 17:38 Last Admin: 06/19/21 17:47 Dose: 2 mls/min Documented by: [id number] Lorazepam (Lorazepam 2 Mg/4 Ml Vial) Confirm Administered Dose 2 mg .ROUTE .STK- MED ONE Stop: 06/19/21 17:43 Last Admin: 06/19/21 17:46 Dose: Not Given Documented by: [id number] Potassium Chloride (Potassium Chloride Crtab 20 Meq Tabcr) 40 meq PO NOW STA Stop: 06/19/21 13:00 Last Admin: 06/19/21 15:03 Dose: Not Given Documented by: [id number] Potassium Chloride (Potassium Chloride Crtab 20 Meq Tabcr) 40 meq PO NOW STA Stop: 06/20/21 08:34 Last Admin: 06/20/21 09:54 Dose: 40 meq Documented by: [id number] Potassium Chloride (Potassium Chloride Crtab 20 Meq Tabcr) 40 meq PO NOW STA Stop: 06/21/21 12:11 Last Admin: 06/21/21 12:25 Dose: 40 meq Documented by: [id number] Description This is a 21 electrode EEG with a single channel dedicated to limited EKG. The electrodes were placed in accordance with the International 10-20 system. This EEG was done as a bedside recording is of excellent technical quality with few or no muscle movement artifacts. Initially the tracing was characterized by what appears to be electroencephalographic drowsiness with this change quickly after photic stimulation was performed which incidentally did not produce any significant driving response with no photoparoxysmal or photo myogenic components. After photic stimulation EEG became more characteristic of wakefulness with background alpha rhythm of up to 10 Hz maximal frequency and 30 V maximum amplitude there this is back to posteriorly bilaterally symmetrical. Moderate voltage mid frequency theta activity was seen centrally and symmetrically beta activity seen bifrontally. No potentially epileptogenic patterns were seen Interpretation This is a normal EEG during wakefulness with no evidence for focal generalized encephalopathy no evidence for potential epileptogenic features Clinical Correlation Normal EEG during wakefulness which does not exclude the diagnosis of a metabolic encephalopathy but indicates the process is relatively mild does not have any focal or lateralizing features and is not associated with any potentially epileptogenic patterns Darren Morris MD
[2021-06-21] MEDS: QUEtiapine FUMARATE 25 MG TABLET PO SCH (20:58)
[2021-06-22] MEDS: HEPARIN SOD 5,000 UNIT/0.5 ML VIAL SQ SCH (05:59)
[2021-06-22 06:06] LABS: Hematocrit (blood only) 43.3 % (37-47); Hemoglobin 14.3 g/dL (12.0-16.0); Mean Corpuscular Hemoglobin 28.9 pg (25-34); Mean Corpuscular Volume 87.7 fL (80-100); Mean Platelet Volume 9.9 fL (7.4-10.4); Platelet Count 245 K/uL (130-400); RDW Coefficient of Variation 14.5 % (11.5-14.5); RDW Standard Deviation 46.6 fL (36.4-46.3); Red Blood Count 4.94 M/uL (4.2-5.4); White Blood Count 6.03 K/uL (4.8-10.8)
[2021-06-22 06:43] LABS: BUN Creatinine Ratio 22.7 (10-20); Creatinine Clr Calc Pharmacy 45.3 ml/min; Est GFR (African American) 63.9 ml/min; Est GFR (Non-African American) 55.2 ml/min; Magnesium 2.2 mg/dl (1.8-2.4); Phosphorus 2.1 mg/dl (2.5-4.9)
[2021-06-22] MEDS: METOPROLOL SUCC 25MG EXT REL TAB PO SCH (07:59)
[2021-06-22] MEDS: RALOXIFENE HCL 60 MG TAB PO SCH (07:59)
[2021-06-22] MEDS: ROSUVASTATIN CALCIUM 20 MG TAB PO SCH (07:59)
--- NOTE | 2021-06-22 08:00 | Hospitalist Progress Note ---
Date of Service June 22, 2021 Assessment & Plan (1) Acute metabolic encephalopathy: Plan: 80yo F from [facility] with a PMH of HTN, HLD, history of right breast cancer s/p surgery, osteoporosis who presents with generalized weakness, anxiety and medication noncompliance. Alert, disoriented. Aware of person only on admission Has been admitted recently for encephalopathy and was felt that patient delirium was likely multifactorial in setting of UTI, ROBERT, recent surgery, acute stress reaction and recent anesthesia Was also seen by psychiatry on previous admission and trazodone was stopped and she was transitioned to Seroquel at night. Since discharge, patient has been started on BuSpar 7.5 mg TID Per son, was doing well and at cognitive baseline over the weekend CT head without acute abnormality. VSS, no leukocytosis, UA abnormal, UDS WNL, covid negative Discussed with psychiatry - recommend PRN Haldol, holding Buspar, continue Seroquel HS. Pt clinically improved, also being treated for E. coli UTI Per psychiatry, continue Seroquel HS. Let pt settle back at [facility] and consider starting Lexapro when seen by PCP at her hospital follow up visit. Will stop Buspar. (2) Acute UTI: Plan: UTI Abnormal UA on admission. Started on empiric Rocephin Urine culture posit. for E. coli , cont. Rocephin while inpt, will DC on PO Abx (3) Hypokalemia: Plan: Initial K 3.3 replace and monitor (4) Breast cancer: Plan: S/p recent surgery with Dr. Ernst Villarreal at [facility]. Outpatient follow-up. Son reported patient is to start radiation treatments (5) HTN (hypertension): Plan: Continue metoprolol succinate (6) HLD (hyperlipidemia): Plan: Continue statin DVT Ppx: SQ heparin Code status: FULL PCP: Dr. Vega Dispo: med/surg SonMarco A. Admission and Anticipated Discharge Date Admission Date: June 21, 2021 Subjective Patient seen in follow-up of mental status change, encephalopathy, UTI Currently she is sitting up in chair, she is in no acute distress however seems to be more anxious today, worried about her close not fitting her right Says everything is too overwhelming Denies any fevers, chills, chest pain, shortness of breath, abdominal pain, diarrhea, nausea vomiting, dysuria Discussed discharge with her, her son and senior case manager. Pt's sons are aware about her worrying about little things and will try to address. international tax manager will call Eduardo Hedrick to ask for more assistance/help until patient settles. Psychiatry also contacted, to see if there are any new recommendations /updates for discharge. Review of Systems Review of Systems: All systems reviewed & are unremarkable except as noted in Subjective Physical Exam Physical Exam: General Appearance:WD/WN, elderly F in NAD Head: normocephalic, atraumatic Eyes:normal inspection, PERRL, EOMI, conjunctivae normal, anicteric sclerae ENT: external ear and nose normal, oropharynx normal Neck: normal visual inspection Respiratory:normal respiratory effort, lungs clear to auscultation, no wheeze, rales, rhonchi. No accessory muscle use Cardiovascular: regular rate, rhythm, no murmur, normal peripheral pulses, no BLE edema. Vessels: no JVD Chest: normal inspection of chest Abdomen/GI: normal bowel sounds, soft, nontender Extremities/Musculoskeletal:moves extremities Neurologic: PERRL, EOMI, no face palsy, no dysarthria, moves all extremities Psychiatric:Awake and alert, able to answer most questions appropriately Skin:normal color, warm/dry Results & Data Results & Data ([facility]) Vital Signs (Past 12 Hours) Vital Signs Temp Pulse Resp BP BP Pulse Ox 06/22/21 06:50 36.6 C 72 18 126/71 99 06/21/21 20:54 36.8 C 65 16 127/72 97 Laboratory Results 06/22/21 06/22/21 06/21/21 Range/Units 05:52 05:52 09:32 WBC 6.03 (4.8-10.8) K/uL RBC 4.94 (4.2-5.4) M/uL Hgb 14.3 (12.0-16.0) g/dL Hct 43.3 (37-47) % MCV 87.7 (80-100) fL MCH 28.9 (25-34) pg MCHC 33.0 (32-36) g/dL RDW Std Deviation 46.6 H (36.4-46.3) fL RDW Coeff of Fozia 14.5 (11.5-14.5) % Plt Count 245 (130-400) K/uL MPV 9.9 (7.4-10.4) fL Sodium 140 140 (136-145) mmol/L Potassium 4.0 D 3.3 L (3.5-5.1) mmol/L Chloride 108 H 106 (98-107) mmol/L Carbon Dioxide 29 29 (21-32) mmol/L Anion Gap 3.0 5.0 (3-11) BUN 22 H 19 H (7-18) mg/dl Creatinine 0.97 1.09 (0.6-1.2) mg/dl Est Cr Clr Drug Dosing 45.3 40.3 ml/min Est GFR ( Amer) 63.9 55.5 ml/min Est GFR (Non-Af Amer) 55.2 47.9 ml/min BUN/Creatinine Ratio 22.7 H 17.2 (10-20) Glucose 106 H 147 H (70-99) mg/dl Calcium 9.0 8.9 (8.5-10.1) mg/dl Phosphorus 2.1 L 1.9 L (2.5-4.9) mg/dl Magnesium 2.2 2.2 (1.8-2.4) mg/dl 06/21/21 Range/Units 09:32 WBC 6.62 (4.8-10.8) K/uL RBC 5.07 (4.2-5.4) M/uL Hgb 15.0 (12.0-16.0) g/dL Hct 45.0 (37-47) % MCV 88.8 (80-100) fL MCH 29.6 (25-34) pg MCHC 33.3 (32-36) g/dL RDW Std Deviation 47.4 H (36.4-46.3) fL RDW Coeff of Fozia 14.8 H (11.5-14.5) % Plt Count 308 (130-400) K/uL MPV 9.7 (7.4-10.4) fL Sodium (136-145) mmol/L Potassium (3.5-5.1) mmol/L Chloride (98-107) mmol/L Carbon Dioxide (21-32) mmol/L Anion Gap (3-11) BUN (7-18) mg/dl Creatinine (0.6-1.2) mg/dl Est Cr Clr Drug Dosing ml/min Est GFR ( Amer) ml/min Est GFR (Non-Af Amer) ml/min BUN/Creatinine Ratio (10-20) Glucose (70-99) mg/dl Calcium (8.5-10.1) mg/dl Phosphorus (2.5-4.9) mg/dl Magnesium (1.8-2.4) mg/dl Medications Administered Current Inpatient Medications Acetaminophen (Acetaminophen 325 Mg Tab) 650 mg PO Q4H PRN PRN Reason: pain/fever Stop: 07/19/21 15:22 Calcium Carbonate (Calcium Carbonate 500 Mg Chewable Tab) 500 mg PO Q3H PRN PRN Reason: HEARTBURN/INDIGESTION Stop: 07/19/21 15:22 Heparin Sodium (Porcine) (Heparin Sod 5,000 Unit/0.5 Ml Vial) 5,000 units SQ Q8 [facility] Stop: 07/19/21 15:29 Last Admin: 06/22/21 05:59 Dose: 5,000 units Documented by: Ceftriaxone Sodium 2,000 mg/ (Dextrose) 50 mls @ 100 mls/hr IV Q24H [facility]; Protocol Stop: 06/25/21 10:59 Last Infusion: 06/21/21 11:49 Dose: Infused Documented by: Lactobacillus Acidoph/Casei/Rhamnos (Advanced Probiotic 1250 Mg Capsule) 2 cap PO DAILY [facility] Stop: 07/22/21 08:59 Last Admin: 06/22/21 07:58 Dose: 2 cap Documented by: Metoprolol Succinate (Metoprolol Succ 25mg Ext Rel Tab) 25 mg PO BID [facility] Stop: 07/19/21 20:59 Last Admin: 06/22/21 07:59 Dose: 25 mg Documented by: Ondansetron HCl (Ondansetron Inj 2 Mg/Ml 2 Ml Vial) 4 mg IV Q6H PRN PRN Reason: Nausea Stop: 07/19/21 15:22 Polyethylene Glycol (Polyethylene (Miralax) 17 Gm Pack) 17 gm PO DAILY PRN PRN Reason: Constipation Stop: 07/19/21 15:22 Quetiapine Fumarate (Quetiapine Fumarate 25 Mg Tablet) 12.5 mg PO HS [facility] Stop: 07/19/21 20:59 Last Admin: 06/21/21 20:58 Dose: 12.5 mg Documented by: Raloxifene HCl (Raloxifene Hcl 60 Mg Tab) 60 mg PO [facility] Stop: 07/20/21 08:59 Last Admin: 06/22/21 07:59 Dose: 60 mg Documented by: Rosuvastatin Calcium (Rosuvastatin Calcium 20 Mg Tab) 40 mg PO [facility] Stop: 07/20/21 08:59 Last Admin: 06/22/21 07:59 Dose: 40 mg Documented by:
[2021-06-22] MEDS ORDERED: ADVANCED PROBIOTIC 1250 MG CAPSULE PO SCH (09:00)
--- NOTE | 2021-06-22 10:54 | Discharge Summary ---
Date of Service June 22, 2021 Admission HPI Per Admitting Provider This is an 80yo F from [facility] with a PMH of HTN, HLD, history of right breast cancer status post surgery, osteoporosis who presents with generalized weakness, anxiety and medication noncompliance. Has been admitted twice in the past 2 months for encephalopathy in the setting of UTI growing klebsiella and citrobacter and possible diagnosis of Lewy Body dementia. It was felt that patient delirium was likely multifactorial in setting of UTI, ROBERT, recent surgery, acute stress reaction and recent anesthesia. Was also seen by psych on previous admission and trazodone was stopped and she was transitioned to Seroquel at night. Since discharge, patient has been started on BuSpar 7.5 mg 3 times daily. Per son, when he visited patient over the weekend she was at cognitive baseline. Since then has become more anxious and tearful with increased urinary frequency. States "people keep asking me to manage my medication and I don't know how". Denies visual/auditory hallucinations right now. No SI/HI. Denies any hematuria. Unreliable ROS due to worsened anxiety. Poor historian at baseline. Admission Exam Per Admitting Provider General Appearance:WD/WN, vitals as above, severe anxiety with crying, unable to appropriately answer questions during interview Head: normocephalic, atraumatic Eyes:normal inspection, PERRL, conjunctivae normal, anicteric sclerae ENT: external ear and nose normal, oropharynx normal Neck: normal visual inspection, trachea midline, no thyromegaly Respiratory:normal respiratory effort, lungs clear to auscultation, no wheeze, rales, rhonchi. No accessory muscle use Cardiovascular: regular rate, rhythm, no murmur, normal peripheral pulses, no BLE edema. Vessels: no JVD Chest: normal inspection of chest Abdomen/GI: normal bowel sounds, soft, nontender, no hepatosplenomegaly Extremities/Musculoskeletal: no cyanosis or clubbing, extremities motor strength 5/5 Neurologic: PERRL, EOMI, accommodation nl, no face palsy, no dysarthria, CN's II-XI intact bilaterally and moves all extremities Psychiatric:A+Ox person, anxious, tearful and shaking. "I don't know any answers to the rest of your questions! There is too much beeping." Skin: no rashes, normal color, warm/dry Principal Diagnosis Acute metabolic encephalopathy UTI Anxiety Discharge Exam General Appearance:WD/WN, elderly F in NAD Head: normocephalic, atraumatic Eyes:normal inspection, PERRL, EOMI, conjunctivae normal, anicteric sclerae ENT: external ear and nose normal, oropharynx normal Neck: normal visual inspection Respiratory:normal respiratory effort, lungs clear to auscultation, no wheeze, rales, rhonchi. No accessory muscle use Cardiovascular: regular rate, rhythm, no murmur, normal peripheral pulses, no BLE edema. Vessels: no JVD Chest: normal inspection of chest Abdomen/GI: normal bowel sounds, soft, nontender Extremities/Musculoskeletal:moves extremities Neurologic: PERRL, EOMI, no face palsy, no dysarthria, moves all extremities Psychiatric:Awake and alert, able to answer most questions appropriately Skin:normal color, warm/dry Discharge Data Allergies Allergy/AdvReac Type Severity Reaction Status Date / Time No Known Allergies Allergy Verified 06/03/21 18:44 Consultations 06/19/21 11:18 ED Decision to Admit Stat 06/19/21 14:01 Consult Psychiatry Routine Ordered Studies 06/19/21 09:14 CT head/brain wo con Stat Impression: No acute intracranial hemorrhage, no evidence of acute territorial infarction or other acute intracranial disease process. Hospital Course (1) Acute metabolic encephalopathy: 80yo F from [facility] with a PMH of HTN, HLD, history of right breast cancer s/p surgery, osteoporosis who presents with generalized weakness, anxiety and medication noncompliance. Alert, disoriented. Aware of person only on admission Has been admitted recently for encephalopathy and was felt that patient delirium was likely multifactorial in setting of UTI, ROBERT, recent surgery, acute stress reaction and recent anesthesia Was also seen by psychiatry on previous admission and trazodone was stopped and she was transitioned to Seroquel at night. Since discharge, patient has been started on BuSpar 7.5 mg TID Per son, was doing well and at cognitive baseline over the weekend CT head without acute abnormality. VSS, no leukocytosis, UA abnormal, UDS WNL, covid negative Discussed with psychiatry - recommend PRN Haldol, holding Buspar, continue Seroquel HS. Pt clinically improved, also being treated for E. coli UTI Per psychiatry, continue Seroquel HS. Let pt settle back at [facility] and consider starting Lexapro when seen by PCP at her hospital follow up visit. Will stop Buspar. (2) Acute UTI: UTI Abnormal UA on admission. Started on empiric Rocephin Urine culture posit. for E. coli , cont. Rocephin while inpt, will DC on PO Abx (3) Hypokalemia: Initial K 3.3 replace and monitor (4) Breast cancer: S/p recent surgery with Dr. Ernst Villarreal at [facility]. Outpatient follow-up. Son reported patient is to start radiation treatments (5) HTN (hypertension): Continue metoprolol succinate (6) HLD (hyperlipidemia): Continue statin Total Time Total Time Spent Total Time Spent (In Minutes): 40 Discharge Plan Discharge Items Patient Disposition: Personal Residential Reason For Visit: GENERALIZED WEAKNESS Discharge Diagnosis: Acute metabolic encephalopathy UTI Anxiety Activity: Per Instructions section Non-emergency contact: Primary Care Provider Call non-emergency contact if: you have any medication questions and your symptoms worsen Follow-up/Referrals: [facility] [Primary Care Provider] - Diet: Regular Diet Texture: Easy to Chew Addtl Attending Provider Instructions: Follow up with your primary care doctor within 1-2 weeks. Finish antibiotic treatment for UTI, as prescribed. Continue taking Seroquel at night but stop taking Buspirone. Recommend more assistance/attention, until patient settles back in her home environment. Pending Studies at Discharge: No Stand-Alone Forms: My Monitoring Division, Smoking Cessation Skilled Items Patient informed of condition?: Yes DNR: No Discharge Level of Care: Other Communicable Disease: No Discharge Prognosis: Stable Lines: None Urinary Catheter: No Medications and DC Order Prescriptions: New cefuroxime axetil 250 mg tablet 250 mg PO BID 4 Days Qty: 8 RF: 0 Continued raloxifene 60 mg tablet 60 mg PO QAM RF: 0 rosuvastatin 40 mg tablet 40 mg PO QAM RF: 0 metoprolol succinate 25 mg Tablet Extended Release 24 Hr 25 mg PO BID Qty: 60 RF: 0 quetiapine 25 mg Tablet 12.5 mg PO HS Qty: 30 RF: 0 calcium carbonate [Tums] 200 mg calcium (500 mg) Tablet,Chewable 200 mg PO DIRECTED PRN (Reason: HEARTBURN/INDIGESTION) Qty: 10 RF: 0 Discontinued buspirone 7.5 mg tablet 7.5 mg PO TID RF: 0 Discharge Orders: Discharge Order (Routine); Ordered 06/22/21 Ordered By: Abhishek Tracy Admission Data Admit Date/Time: 06/21/21 23:13 Attending Provider: Abhishek Tracy Admit Provider: Phill Hallman Primary Care Provider: Eduardo Hinsdale,[facility], [facility] Other Providers: Varsha Olvera ; Phill Hallman ; Amber Merritt ; Tiffany Rivas ; Susana Carlson ; Franklin Lewis
[2021-06-22] MEDS: cefTRIAXone SODIUM 2,000 MG in DEXTROSE 5% 50 ML IV SCH (11:11)
--- NOTE | 2021-06-22 12:00 | Psychiatric Progress Note ---
Date of Service June 22, 2021 Impression / Recommendations Impression From Dr. Rivas: 80 yo female with recurrent hospitalization with AMS seemingly out of proportion to her underlying medical condition. No major cognitive disorder at baseline and acute onset both times argues against depression with psychotic features or catatonia. She presents to many as anxious and she likely has some anxiety at baseline but on exam all of her anxiety stems from her cognitive change--unable to identify her clothes, executive functioning with planning to dress or problem solving around the bathroom. She has difficulty describing how to complete certain tasks which may indicate some degree of apraxia. Work up last stay included MRI but not EEG. Seroquel has been helpful last stay, unclear if she continued upon discharge. Buspar is being held due to some concern it may have been activating or causing akathisia as a side effect. 06/22/21: Tolerating seroquel 12.5 mg qhs and confusion improved. Could be she developed hyperactive delirium again and now resolving and plan for subacute rehab. If anxiety persists could increase seroquel to 12.5 mg BID if she allows at subacute rehab or outpt setting but suspect symptoms will continue to improve as delirium fully resolves as subacute delirium can linger for days to weeks. (1) Encephalopathy: (2) Acute UTI: -continue Seroquel 12.5 mg po qhs and could be increased to BID in future if necessary. Interval History Identifying Information 80 yo woman with recent admission for UTI and suspected delirium now readmitted from sub [facility] rehab for acute onset of confusion and worsening anxiety. Chief Complaint "I just don't have any clothes to wear when I get there". Review of Systems Notes She endorses stable sleep and appetite and no pain. Subjective Subjective Patient was seen & assessed and interval progress reviewed. Plan for transfer back to subacute rehab later today. Gavi notes increased anxiety this morning in context of planned transition back to [facility]. She doesn't respond well to reassurance even from her son who was speaking with her on the phone. Did some deep breathing and discussed journaling or distraction strategies to help with anxiety but she remains overwhelmed about what clothes she'll have to wear at [facility] and how her family will all fit when they come visit her tomorrow. Discussed CBT strategies to challenge her anxious thoughts which she was able to do with support. Physical Exam Psychiatric Orientation: alert, oriented to person and oriented to place Apperance: appropriately groomed Eye Contact: + fair eye contact Motor Behavior: + psychomotor agitation (related to anxiety ) Speech: normal rate/rhythm/volume of speech Affect: + anxious affect Mood: + anxious mood; no depressed mood Thought Process: + perseveration and + concrete thought process Thought Content: + cognitive distortions (catastrophizing ); not paranoid and no delusions Suicidal Thoughts: denies suicidal thoughts Homicidal Thoughts: denies homicidal thoughts Hallucinations: no auditory hallucinations and no visual hallucinations Cognition: language grossly intact Insight: + limited insight Judgement: + limited judgement Vital Signs (Past 24 Hours) Last Vital Signs Temp 36.6 C 06/22/21 06:50 Pulse 72 06/22/21 06:50 Resp 18 06/22/21 06:50 BP 126/71 06/22/21 06:50 Pulse Ox 99 06/22/21 06:50 Results & Data ([facility]) Laboratory Results Laboratory Results - last 24 hr 06/22/21 06/22/21 05:52 05:52 WBC 6.03 RBC 4.94 Hgb 14.3 Hct 43.3 MCV 87.7 MCH 28.9 MCHC 33.0 RDW Std Deviation 46.6 H RDW Coeff of Fozia 14.5 Plt Count 245 MPV 9.9 Sodium 140 Potassium 4.0 D Chloride 108 H Carbon Dioxide 29 Anion Gap 3.0 BUN 22 H Creatinine 0.97 Est Cr Clr Drug Dosing 45.3 Est GFR ( Amer) 63.9 Est GFR (Non-Af Amer) 55.2 BUN/Creatinine Ratio 22.7 H Glucose 106 H Calcium 9.0 Phosphorus 2.1 L Magnesium 2.2 Current Inpatient Medications Current Inpatient Medications: Current Inpatient Medications Acetaminophen (Acetaminophen 325 Mg Tab) 650 mg PO Q4H PRN PRN Reason: pain/fever Stop: 07/19/21 15:22 Calcium Carbonate (Calcium Carbonate 500 Mg Chewable Tab) 500 mg PO Q3H PRN PRN Reason: HEARTBURN/INDIGESTION Stop: 07/19/21 15:22 Heparin Sodium (Porcine) (Heparin Sod 5,000 Unit/0.5 Ml Vial) 5,000 units SQ Q8 TRISTEN Stop: 07/19/21 15:29 Last Admin: 06/22/21 05:59 Dose: 5,000 units Documented by: Ceftriaxone Sodium 2,000 mg/ (Dextrose) 50 mls @ 100 mls/hr IV Q24H [facility]; Protocol Stop: 06/25/21 10:59 Last Admin: 06/22/21 11:11 Dose: 100 mls/hr Documented by: Lactobacillus Acidoph/Casei/Rhamnos (Advanced Probiotic 1250 Mg Capsule) 2 cap PO DAILY [facility] Stop: 07/22/21 08:59 Last Admin: 06/22/21 07:58 Dose: 2 cap Documented by: Metoprolol Succinate (Metoprolol Succ 25mg Ext Rel Tab) 25 mg PO BID [facility] Stop: 07/19/21 20:59 Last Admin: 06/22/21 07:59 Dose: 25 mg Documented by: Ondansetron HCl (Ondansetron Inj 2 Mg/Ml 2 Ml Vial) 4 mg IV Q6H PRN PRN Reason: Nausea Stop: 07/19/21 15:22 Polyethylene Glycol (Polyethylene (Miralax) 17 Gm Pack) 17 gm PO DAILY PRN PRN Reason: Constipation Stop: 07/19/21 15:22 Quetiapine Fumarate (Quetiapine Fumarate 25 Mg Tablet) 12.5 mg PO HS [facility] Stop: 07/19/21 20:59 Last Admin: 06/21/21 20:58 Dose: 12.5 mg Documented by: Raloxifene HCl (Raloxifene Hcl 60 Mg Tab) 60 mg PO QAM [facility] Stop: 07/20/21 08:59 Last Admin: 06/22/21 07:59 Dose: 60 mg Documented by: Rosuvastatin Calcium (Rosuvastatin Calcium 20 Mg Tab) 40 mg PO QAM [facility] Stop: 07/20/21 08:59 Last Admin: 06/22/21 07:59 Dose: 40 mg Documented by:
== END 2021-06-22 13:19 | disposition home or self-care (01) | DRG 689 ==
LOC: EDINP 08:42 → ED 08:42 → SUATTDRO 12:57 → EDINP 15:03 → 3E 06-20 11:14